=== PATIENT | male | born 1950 | race Caucasian/White ===

== ENCOUNTER 2019-08-07 03:18 | Emergency (ER) | payer MEDICARE, SELFPAY ==
[2019-08-07 03:24] VITALS: BP 120/85; PULSE 113; RESP 18; TEMP 37.1; O2SAT 99
--- NOTE | 2019-08-07 03:25 | ED.PSYCH ---
HPI - Psych General Chief Complaint: Psychiatric Symptoms <Sarbjit Cooper MD - Last Filed: 08/09/19 00:26> Stated Complaint: SI <Sarbjit Cooper MD - Last Filed: 08/09/19 00:26> Time Seen by Provider: 08/07/19 03:18 <Sarbjit Cooper MD - Last Filed: 08/09/19 00:26> History of Present Illness HPI Narrative: Sent from [facility] for alcohol intoxication and possible suicidal ideation. He reports that he has been drinking for the past 3 days straight and now he thinks that he is in withdrawal. Unsure when he had his last drink, but laess than 24 hours ago. He reportedly told someone that if he had the courage he would jump off of a bridge, but denies being suicidal at this time. <Sarbjit Cooper MD - Last Filed: 08/09/19 00:26> Related Data Home Medications: Home Medications Medication Instructions Recorded Confirmed fluoxetine 20 mg PO DAILY 06/13/19 06/13/19 furosemide 20 mg PO BID 06/13/19 06/13/19 gemfibrozil 600 mg PO DAILY 06/13/19 06/13/19 hydroxyzine HCl 25 mg PO Q4H PRN 06/13/19 06/13/19 sertraline 50 mg PO DAILY 06/13/19 06/13/19 verapamil 240 mg PO DAILY 06/13/19 06/13/19 <Sarbjit Cooper MD - Last Filed: 08/09/19 00:26> Allergies/Adverse Reactions: Allergies Allergy/AdvReac Type Severity Reaction Status Date / Time No Known Allergies Allergy Mild Verified 09/06/17 03:21 <Sarbjit Cooper MD - Last Filed: 08/09/19 00:26> Review of Systems Review of Systems: ROS unobtainable: other (limited due to intoxication and cooperation ) <Sarbjit Cooper MD - Last Filed: 08/09/19 00:26> Eyes: Eyes: Denies change in vision <Sarbjit Cooper MD - Last Filed: 08/09/19 00:26> Cardiovascular: Cardiovascular: Denies chest pain <Sarbjit Cooper MD - Last Filed: 08/09/19 00:26> Respiratory: Respiratory: Denies dyspnea <Sarbjit Cooper MD - Last Filed: 08/09/19 00:26> Psychiatric: Psychiatric: Reports anxiety, Reports depression and Reports suicidal ideation <Sarbjit Cooper MD - Last Filed: 08/09/19 00:26> [facility] Past Medical History Medical History: Medical History Alcoholism Anxiety Depression Deviated septum Esophageal varices GERD (gastroesophageal reflux disease) Hypercholesteremia Hypertension Nose fracture <Sarbjit Cooper MD - Last Filed: 08/09/19 00:26> Surgical History Surgical History: Surgical History H/O hernia repair x2 History of appendectomy <Sarbjit Cooper MD - Last Filed: 08/09/19 00:26> Family History Family History: Family History Father Alcoholism Mother Cancer <Sarbjit Cooper MD - Last Filed: 08/09/19 00:26> Social History Social History: Social History Social History: he has no children. He is disabled. He stated that he drinks a 5th of vodka a day and is a lifelong nonsmoker Smoking status: Never smoker Alcohol intake: current Substance use: former Substance use type: marijuana, heroin and other Other substance usage details: fifth vodka/day Gender identity (if verbalized by the patient): Male Spiritual care concerns: No Agree to blood products: Yes <Sarbjit Cooper MD - Last Filed: 08/09/19 00:26> Exam Const: General: no acute distress, alert and ill appearing chronically <Sarbjit Cooper MD - Last Filed: 08/09/19 00:26> Orientation/consciousness: patient oriented x3 <Sarbjit Cooper MD - Last Filed: 08/09/19 00:26> HENMT: Head: normal to inspection <Sarbjit Cooper MD - Last Filed: 08/09/19 00:26> Eyes: Pupils: Equal, round and reactive pupils present <Sarbjit Cooper MD - Last Filed: 08/09/19 00:26> Neck: Neck: normal visual inspection <Sarbjit Cooper MD - Last F
--- NOTE | 2019-08-07 03:30 | PC.NURSE ---
Sitter at bedside.
--- NOTE | 2019-08-07 03:32 | ECG_ITS ---
Measurements Intervals [place] Rate: 100 P: 38 [place]: 188 QRS: -41 QRSD: 78 T: 64 QT: 361 QTc: 468 Interpretive Statements SINUS TACHYCARDIA FREQUENT ATRIAL PREMATURE COMPLEXES LEFT AXIS DEVIATION ANTEROSEPTAL INFARCT, AGE INDETERMINATE BORDERLINE ST-T WAVE ABNORMALITY- LATERAL LEADS BASELINE ARTIFACT- I, II, AVR, V2-V3 ABNORMAL ECG Electronically Signed On 08-07-2019 8:02:49 CROSS TIE TRAM LOADER by Gumaro Glover D.O.
[2019-08-07 03:36] LABS: Basophils Percent Auto 0.5 % (0.2-1.2); Eosinophils Absolute Auto 0.1 K/mm3 (0-0.3); Eosinophils Percent Auto 0.9 % (0-4.4); Hematocrit 46.1 % (42.0-52.0); Hemoglobin 14.6 g/dL (14.0-18.0); Immature Granulocyte Absolute 0.03 K/mm3 (0.00-0.031); Immature Granulocyte Percent A 0.5 % (0-0.5); Lymphocytes Absolute Auto 1.45 K/mm3 (0.9-3.2); Lymphocytes Percent Auto 25.5 % (18.3-44.2); Mean Corpuscular HGB Conc 31.7 g/dl (32-36); Mean Corpuscular Hemoglobin 25.9 pg (26-34); Mean Corpuscular Volume 81.9 fl (80-100); Mean Platelet Volume 8.9 fl (7.4-10.4); Monocytes Absolute Auto 0.7 K/mm3 (0.1-0.6); Monocytes Percent Auto 11.6 % (2.6-8.5); Neutrophils Absolute Auto 3.5 K/mm3 (1.3-6.7); Platelet Count Result 281 k/mm3 (150-375); Red Blood Count 5.63 M/mm3 (4.6-6.20); Red Cell Distribution Width 17.3 % (11.5-14.5); White Blood Count 5.7 K/mm3 (4.5-10.0)
--- NOTE | 2019-08-07 03:40 | PC.NURSE ---
Patient banging head on wall, hitting torres with his fists. Dr Cooper aware.
[2019-08-07] MEDS: SODIUM CHLORIDE 0.9% IV 1,000 ML 999 ML IV CONT (03:45)
[2019-08-07] MEDS: HALOPERIDOL LACTATE 5 MG/ML VIAL IM (03:45)
[2019-08-07 04:00] LABS: Ethanol 206 mg/dL (<10)
--- NOTE | 2019-08-07 04:02 | PC.NURSE ---
New green top drawn and sent to lab after being unreceived. Patient advised again that we need urine, and he would be straight cathed if he cannot provide specimen.
--- NOTE | 2019-08-07 04:07 | PC.NURSE ---
Patient stating his medication is not working and ativan usually helps. EDP Kenneth aware.
[2019-08-07 04:11] VITALS: BP 138/81; PULSE 98; RESP 18; O2SAT 97
[2019-08-07 04:19] LABS: Alanine Aminotransferase 12 U/L (4-50); Albumin Level 3.5 g/dL (3.5-5.1); Alkaline Phosphatase 71 U/L (38-126); Aspartate Amino Transferase 36 U/L (17-59); Bilirubin,Total 0.3 mg/dL (0.2-1.3); Blood Urea Nitrogen 10 mg/dL (9-20); Calcium 8.2 mg/dL (8.4-10.2); Carbon Dioxide 20 mmol/L (22-30); Chloride 103 mmol/L (98-107); Estimated CRCL calculation 137 ml/min; Estimated Glomerular Filt Rate > 60; Glucose 92 mg/dL (75-110); Potassium 3.3 mmol/L (3.4-5.0); Sodium 138 mmol/L (137-145)
--- NOTE | 2019-08-07 04:30 | PC.NURSE ---
Sitter at bedside.
[2019-08-07] MEDS: LORAZEPAM INJ 2 MG/ML VIAL IV PUSH (04:33)
[2019-08-07 05:01] LABS: Add Urine Microscopic? YES; Appearance Urine Clear (Clear); Bacteria Urine Trace /hpf; Bilirubin Urine Negative (Negative); Blood Urine 1+ (Negative); Color Urine Straw (Yellow); Glucose Urine UA Negative (Negative); Ketones Urine Trace mg/dL (Negative); Leukocyte Esterase Ur Negative LEU/UL (Negative); Mucus Urine Rare /lpf; Nitrate Urine Negative (Negative); Protein Urine Negative (Negative); RBC Urine 0-2 /hpf (0-2); Specific Grav Ur 1.009 (1.001-1.035); Urobilinogen Urine Negative mg/dL (<2.0); WBC Urine 0-3 /hpf
[2019-08-07 05:14] LABS: Amphetamine Screen Urine Negative (Negative); Barbiturate Screen Urine Negative (Negative); Benzodiazepines Screen Urine Negative (Negative); Cannabinoid Screen Urine Negative (Negative); Cocaine Screen Urine Negative (Negative); Methadone Screen Urine Negative (Negative); Opiate Screen Urine Negative (Negative); Phencyclidine Screen Urine Negative (Negative)
--- NOTE | 2019-08-07 05:33 | PC.NURSE ---
Patient resting on stretcher, sitter at bedside.
--- NOTE | 2019-08-07 06:20 | PC.NURSE ---
Patient resting on stretcher, sitter at bedside.
[2019-08-07 07:19] VITALS: BP 112/74; PULSE 109; RESP 18; TEMP 36.4; O2SAT 97
--- NOTE | 2019-08-07 10:45 | PC.NURSE ---
Patient c/o being anxious, Dr. Ramsey notified and order received for IVP ativan.
[2019-08-07] MEDS: LORAZEPAM INJ 2 MG/ML VIAL 1 MG IV PUSH ×2 (11:00→15:20)
--- NOTE | 2019-08-07 12:10 | PC.NURSE ---
pt cooperative in room, resting. equal chest rise and fall noted
--- NOTE | 2019-08-07 12:40 | PC.NURSE ---
pt eating in room, no other needs at this time
[2019-08-07 13:07] LABS: Ethanol 12 mg/dL (<10)
[2019-08-07 14:23] VITALS: BP 122/84; PULSE 101; RESP 18; O2SAT 97
--- NOTE | 2019-08-07 14:28 | PC.NURSE ---
pt asking for med to help with anxiety awaiting order from pcp
[2019-08-07 15:11] VITALS: BP 131/70; PULSE 118; RESP 21; TEMP 36.8; O2SAT 95
--- NOTE | 2019-08-07 15:25 | PC.NURSE ---
pt received ativan 1 mg ivp pt comfortable in room eyes closed, equal chest rise and fall noted
--- NOTE | 2019-08-07 16:00 | PC.NURSE ---
pt said to be getting admitted to local hospital for eval and treatment info faxed to various facilities by crisis awaiting response
--- NOTE | 2019-08-07 17:57 | PC.NURSE ---
pt turned down for placement at [facility], stating that the pt does not meet criteria for involuntary placement. speaking to the pt, he does not want to be placed, completely denied any thoughts of SI, is aware of the statements that he made while under the ETOH, PT UNSURE OF WHAT PLAN HE HAS TO ARE FOR SELF AT THIS TIME STILL AWAITING WORD BACK FROM [facility] AND [facility] HAVE BOTH TURNED PT DOWN AT THIS TIME
--- NOTE | 2019-08-07 18:30 | PC.NURSE ---
pt in room eating dinner, pt cooperative, no other needs at this time
--- NOTE | 2019-08-07 19:30 | PC.NURSE ---
pt in room resting, no needs at this time. equal chest rise and fall sitter at door
--- NOTE | 2019-08-07 20:45 | PC.NURSE ---
pt in room resting, no needs equal chest rise and fall sitter at door
--- NOTE | 2019-08-07 21:55 | PC.NURSE ---
no needs at this time, still awaiting dispo no response from other facilities
[2019-08-08] MEDS: LORAZEPAM 1 MG TABLET 2 MG PO (03:40)
[2019-08-08 03:47] VITALS: BP 153/98; PULSE 80; RESP 20; O2SAT 96
--- NOTE | 2019-08-08 07:23 | PC.NURSE ---
Assumed care of pt, pt is resting w/ lights dimmed. Pt alert to verbal stimulation - discussed POC. Pt is calm and cooperative. Food tray ordered for pt. Sitter at bedside.
[2019-08-08 09:31] VITALS: BP 132/76; PULSE 79; RESP 14; O2SAT 97
--- NOTE | 2019-08-08 09:33 | PC.NURSE ---
Per Mariposa with Crisis, they are continuing to try to find placement for this patient. Requesting this RN fax records to [place] ([phone]), and to [facility] ([phone]).
--- NOTE | 2019-08-08 10:44 | PC.NURSE ---
PT REPORTS HE IS FEELING ANXIOUS AND REQUESTING MORE ATIVAN. EDP AWARE AND ORDER PLACED FOR MED. PT CALM AND COOPERATIVE, PT ON STRETCHER W/ LIGHTS DIMMED. SITTER REMAINS AT BEDTIME.
[2019-08-08] MEDS: LORAZEPAM 1 MG TABLET PO ×2 (10:50→14:53)
--- NOTE | 2019-08-08 10:50 | PC.NURSE ---
Mariposa from [facility] calling to request records be faxed to [facility].
--- NOTE | 2019-08-08 14:12 | PC.NURSE ---
CALLED DIETARY AND ORDERED LUNCH TRAY FOR PT, PT CALM AND RESTING ON STRETCHER - C/O ANXIOUS AND REQUESTING ATIVAN. EDP AWARE.
--- NOTE | 2019-08-08 14:56 | PC.NURSE ---
[facility] CALLED FOR PT INFORMATION, WILL POSSIBLY TAKE PT, GOING TO TALK W/ A DOC TO ACCEPT AND WILL CALL BACK IN APROX 20 MINS.
--- NOTE | 2019-08-08 15:33 | PC.NURSE ---
SERGEY FROM [facility] CALLING TO CONFIRM ACCEPTING PT. ACCEPTING DOCTOR DR BARBOSA. EDP AWARE. [phone]
--- NOTE | 2019-08-08 16:09 | PC.NURSE ---
Called [facility] to transport pt to a higher level of care. ETA [phone]. Trip# [id number]
[2019-08-08 16:44] VITALS: BP 127/72; PULSE 69; RESP 14; O2SAT 100
[2019-08-08 17:34] VITALS: BP 134/81; PULSE 87; RESP 14; O2SAT 98
== END 2019-08-08 17:37 ==
PROVIDERS: Emergency Medicine; Emergency Provider Emergency Medicine
DX: R45.851 Suicidal ideations (principal); F32.9 Major depressive disorder, single episode, unspecified; F10.129 Alcohol abuse with intoxication, unspecified; K21.9 Gastro-esophageal reflux disease without esophagitis; F41.9 Anxiety disorder, unspecified; E78.00 Pure hypercholesterolemia, unspecified; I10 Essential (primary) hypertension; Y90.7 Blood alcohol level of 200-239 mg/100 ml
CPT/HCPCS: 36415; 51701; 80053; 80307; 81001; 84443; 85025; 93005; 96361; 96372; 96374; 96376; 99285; A9270; J1630; J2060; J7030

== ENCOUNTER 2019-08-18 16:36 | Emergency (ER) | payer MEDICARE, SELFPAY ==
[2019-08-18] VITALS (8 sets, daily range): BP systolic 108–151; BP diastolic 64–98; PULSE 67–98; RESP 12–20; TEMP 34.1–36.8; O2SAT 93–99
--- NOTE | ~2019-08-18 | XR_ITS ---
EXAMINATION: XR chest 1V portable INDICATION: Transient alteration of awareness TECHNIQUE: Portable AP chest at 1741 hours COMPARISON: 05/09/2019 FINDINGS: The lungs are free of acute opacities. There is no pleural effusion or pneumothorax. The ca rdiomediastinal silhouette is normal. There is mild osteoarthritis of the shoulders. Partially imaged cervical fusion hardware is noted. There is mild rightward deviation of the trachea due to goiter. IMPRESSION: 1. No acute cardiopulmonary abnormality. Reviewed, dictated and finalized at location A. TESY BOOTH CASHIER
--- NOTE | ~2019-08-18 | CT_ITS ---
EXAMINATION: CT cervical spine wo con DATE: 08/18/2019 17:09 INDICATION: Neck injury. TECHNIQUE: Computed tomography (CT) of the cervical spine was performed without intravenous contrast. Automated exposure control and iterative reconstruction technique were employed. The dose-length pro duct was 453.54 mGy-cm. COMPARISON: CT cervical spine 06/09/2010 FINDINGS: There is a 6.8 cm nodule in left thyroid lobe, increased from 2.3 cm on 06/09/2010. There is rightward displacement of the trachea. There is 13 degrees levoscoliosis of cervical spine. There is 3 mm anterolisthesis of C4 on C5. There is kyphosis of cervical spine. There are changes of anterior fusion procedure at C4-C5 with healed interbody bone graft and anterior plate and screws. There is s everely decreased disc height at C3-C4 and C6-C7. There is severely decreased disc height at C5-C6 wi th interbody fusion. There is moderately decreased disc height at C7-T1. The following disc levels ar e specifically discussed: C2-C3: There is mild bilateral uncovertebral joint osteoarthritis. There is severe right and moderate left facet joint osteoarthritis. There is mild right neural foraminal stenosis. There is mild centra l canal stenosis. C3-C4: There is severe bilateral uncovertebral joint osteoarthritis. There is severe bilateral facet joint osteoarthritis. There is moderate bilateral neural foraminal stenosis. There is mild central ca nal stenosis. C4-C5: There is mild bilateral uncovertebral joint hypertrophy. There is ankylosis of the facet joint s with moderate right and mild left hypertrophy. There is mild right neural foraminal stenosis. There is mild central canal stenosis. C5-C6: There is mild bilateral uncovertebral joint hypertrophy. There is mild left facet joint osteoa rthritis. There is ankylosis of right facet joint with moderate hypertrophy. There is mild bilateral neural foraminal stenosis. There is mild central canal stenosis. C6-C7: There is severe bilateral uncovertebral joint osteoarthritis. There is mild bilateral facet arthur int osteoarthritis. There is mild bilateral neural foraminal stenosis. There is mild central canal st enosis. C7-T1: There is no uncovertebral joint osteoarthritis. There is severe bilateral facet joint osteoart hritis. There is mild bilateral neural foraminal stenosis. There is no central canal stenosis. IMPRESSION: 1. No fracture. 2. Severe cervical spondylosis. 3. Anterior and posterior fusion from C4 to C6. Reviewed, dictated and finalized at location A. N TUNER ELECTRONIC
--- NOTE | ~2019-08-18 | CT_ITS ---
EXAMINATION: CT brain wo con DATE: 08/18/2019 17:09 INDICATION: Head injury. TECHNIQUE: Computed tomography (CT) of the head was performed without intravenous contrast. The mA wa s adjusted according to patient size. Iterative reconstruction technique was employed. The dose-lengt h product was 681.00 mGy-cm. COMPARISON: Head CT 05/09/2019 FINDINGS: There is no intracranial hemorrhage, acute infarction, or abnormal intracranial mass lesion . The ventricles are normal in size. The orbits are normal. There is mild mucosal thickening in the p aranasal sinuses. The mastoid air cells are normal. There is left lateral scalp soft tissue swelling. IMPRESSION: 1. Normal brain. Reviewed, dictated and finalized at location A. OL CHILDCARE ATTENDANT IMPRESSION: 1. Normal brain.
--- NOTE | 2019-08-18 16:56 | ECG_ITS ---
Measurements Intervals [place] Rate: 93 P: 19 [place]: 196 QRS: -34 QRSD: 89 T: 23 QT: 385 QTc: 481 Interpretive Statements SINUS RHYTHM LEFT AXIS DEVIATION POOR R WAVE PROGRESSION, ANTERIOR LEADS CANNOT RULE OUT SEPTAL INFARCT, AGE INDETERMINATE BORDERLINE T WAVE ABNORMALITY- INFERIOR LEADS BASELINE ARTIFACT- I, III, AVL, V2 ABNORMAL ECG Electronically Signed On 08-18-2019 19:53:06 PARTS FABRICATOR by Gumaro Glover D.O.
--- NOTE | 2019-08-18 17:02 | ED.ALCOHOL ---
HPI - Alcohol General Chief Complaint: Alcohol <SABAS Hancock Last Filed: 08/18/19 23:04> Stated Complaint: fall, etoh <SABAS Hancock Last Filed: 08/18/19 23:04> Time Seen by Provider: 08/18/19 16:49 <SABAS Hancock Last Filed: 08/18/19 23:04> Source: patient and old records reviewed <SABAS Hancock Last Filed: 08/18/19 23:04> Mode of arrival: EMS <SABAS Hancock Last Filed: 08/18/19 23:04> Limitations: altered mental status <SABAS Hancock Last Filed: 08/18/19 23:04> History of Present Illness HPI narrative: Patient in the room from skilled nursing after having 2 falls with history of alcohol abuse with reported possibility of alcohol use today patient fell and struck his head at the skilled nursing and then again while with family patient on arrival per EMS is altered and alert and oriented to self. Patient is normally ANO x3 patient will follow basic commands but otherwise is limited in his ability to give an accurate history. Patient with hematoma to the left temporal region. <SABAS Hancock Last Filed: 08/18/19 23:04> Related Data Home Medications: Home Medications Medication Instructions Recorded Confirmed fluoxetine 20 mg PO DAILY 06/13/19 06/13/19 furosemide 20 mg PO BID 06/13/19 06/13/19 gemfibrozil 600 mg PO DAILY 06/13/19 06/13/19 hydroxyzine HCl 25 mg PO Q4H PRN 06/13/19 06/13/19 sertraline 50 mg PO DAILY 06/13/19 06/13/19 verapamil 240 mg PO DAILY 06/13/19 06/13/19 <SABAS Hancock Last Filed: 08/18/19 23:04> Allergies/Adverse Reactions: Allergies Allergy/AdvReac Type Severity Reaction Status Date / Time No Known Allergies Allergy Mild Verified 09/06/17 03:21 <SABAS Hancock Last Filed: 08/18/19 23:04> Review of Systems Review of Systems: ROS unobtainable: unobtainable due to mental status <Rico Oconnell PA-C - Last Filed: 08/18/19 23:04> [facility] Past Medical History Medical History: Medical History Alcoholism Anxiety Depression Deviated septum Esophageal varices GERD (gastroesophageal reflux disease) Hypercholesteremia Hypertension Nose fracture <Rico Oconnell PA-C - Last Filed: 08/18/19 23:04> Surgical History Surgical History: Surgical History H/O hernia repair x2 History of appendectomy <Rico Oconnell PA-C - Last Filed: 08/18/19 23:04> Social History Social History: Social History Social History: he has no children. He is disabled. He stated that he drinks a 5th of vodka a day and is a lifelong nonsmoker Smoking status: Never smoker Alcohol intake: current Substance use: former Substance use type: marijuana, heroin and other Other substance usage details: fifth vodka/day Gender identity (if verbalized by the patient): Male Spiritual care concerns: No Agree to blood products: Yes <Rico Oconnell PA-C - Last Filed: 08/18/19 23:04> Exam Narrative: Exam Narrative: GENERAL: Well-appearing, well-nourished, and in no acute distress. HEAD: Normocephalic, small hematoma to the left temporal region EYES: PERRLA and EOMI. ENT: Nares clear, no rhinorrhea or epistaxis. Mucous membranes moist. Oropharynx without tonsillar hypertrophy exudate or other lesions. NECK: Supple. No adenopathy or masses. CHEST: Clear to auscultation. No respiratory distress. No wheezes rales or rhonchi HEART: Regular rate and rhythm. No murmur heard. Normal peripheral pulses. ABDOMEN: Soft, nontender, nondistended EXTREMITIES: Normal range of motion. No edema. Cervical spine palpated nontender SKIN: Warm, dry, no rash. NEURO: Patient follows basic commands is alert and oriented to self PSYCH: Depressed mood with flat affect. <Rico Oconnell
[2019-08-18 17:53] LABS: Basophils Absolute Auto 0.1 K/mm3 (0.0-0.1); Basophils Percent Auto 0.9 % (0.2-1.2); Eosinophils Absolute Auto 0.2 K/mm3 (0-0.3); Eosinophils Percent Auto 2.2 % (0-4.4); Hemoglobin 13.7 g/dL (14.0-18.0); Immature Granulocyte Absolute 0.08 K/mm3 (0.00-0.031); Lymphocytes Absolute Auto 2.33 K/mm3 (0.9-3.2); Lymphocytes Percent Auto 30.6 % (18.3-44.2); Mean Corpuscular HGB Conc 31.1 g/dl (32-36); Mean Corpuscular Hemoglobin 26.2 pg (26-34); Mean Corpuscular Volume 84.1 fl (80-100); Mean Platelet Volume 8.4 fl (7.4-10.4); Monocytes Absolute Auto 0.9 K/mm3 (0.1-0.6); Monocytes Percent Auto 11.8 % (2.6-8.5); Neutrophils Absolute Auto 4.1 K/mm3 (1.3-6.7); Neutrophils Percent Auto 53.5 % (45.5-73.1); Platelet Count Result 323 k/mm3 (150-375); Red Blood Count 5.23 M/mm3 (4.6-6.20); Red Cell Distribution Width 17.6 % (11.5-14.5); White Blood Count 7.6 K/mm3 (4.5-10.0)
[2019-08-18] MEDS: LACTATED RINGERS 1,000 ML 999 ML IV CONT ×2 (18:05→21:37)
[2019-08-18 18:07] LABS: Alanine Aminotransferase 11 U/L (4-50); Albumin Level 3.9 g/dL (3.5-5.1); Alkaline Phosphatase 102 U/L (38-126); Aspartate Amino Transferase 26 U/L (17-59); Bilirubin,Total < 0.1 mg/dL (0.2-1.3); Blood Urea Nitrogen 6 mg/dL (9-20); Carbon Dioxide 23 mmol/L (22-30); Chloride 113 mmol/L (98-107); Estimated CRCL calculation 113 ml/min; Estimated Glomerular Filt Rate > 60; Glucose 103 mg/dL (75-110); Potassium 3.3 mmol/L (3.4-5.0); Sodium 149 mmol/L (137-145)
[2019-08-18 18:17] LABS: Troponin I < 0.012 ng/mL (0.000-0.034)
[2019-08-18 18:20] LABS: Ethanol 384 mg/dL (<10)
[2019-08-18 18:39] LABS: INR 0.9; Prothrombin Time 12.1 Seconds (11.1-14.7)
[2019-08-18 18:40] LABS: Partial Thromboplastin Time 24.9 SECONDS (22.3-36.8)
[2019-08-18 19:23] LABS: Add Urine Microscopic? YES; Appearance Urine Clear (Clear); Bilirubin Urine Negative (Negative); Blood Urine 1+ (Negative); Color Urine Straw (Yellow); Glucose Urine UA Negative (Negative); Ketones Urine Negative (Negative); Leukocyte Esterase Ur 2+ LEU/UL (Negative); Nitrate Urine Negative (Negative); Protein Urine Negative (Negative); RBC Urine 0-2 /hpf (0-2); Urobilinogen Urine Negative mg/dL (<2.0)
[2019-08-18 19:27] LABS: Specific Grav Ur 1.003 (1.001-1.035)
[2019-08-18 20:09] LABS: Amphetamine Screen Urine Negative (Negative); Barbiturate Screen Urine Negative (Negative); Benzodiazepines Screen Urine Positive (Negative); Cannabinoid Screen Urine Negative (Negative); Cocaine Screen Urine Negative (Negative); Methadone Screen Urine Negative (Negative); Opiate Screen Urine Negative (Negative); Phencyclidine Screen Urine Negative (Negative)
[2019-08-18] MEDS: LORAZEPAM INJ 2 MG/ML VIAL 0.5 MG IV PUSH (22:10)
== END 2019-08-18 23:40 ==
PROVIDERS: Emergency Medicine Emergency Medical Services; Emergency Provider Emergency Medicine
DX: F10.229 Alcohol dependence with intoxication, unspecified (principal); S00.83XA Contusion of other part of head, initial encounter; M47.812 Spondylosis without myelopathy or radiculopathy, cervical region; K21.9 Gastro-esophageal reflux disease without esophagitis; F41.9 Anxiety disorder, unspecified; F32.9 Major depressive disorder, single episode, unspecified; E78.00 Pure hypercholesterolemia, unspecified; I10 Essential (primary) hypertension; Y90.8 Blood alcohol level of 240 mg/100 ml or more; R94.31 Abnormal electrocardiogram [ECG] [EKG]; M43.22 Fusion of spine, cervical region; R82.998 Other abnormal findings in urine; W01.10XA Fall on same level from slipping, tripping and stumbling with subsequent striking against unspecified object, initial encounter
CPT/HCPCS: 36415; 51701; 70450; 71045; 72125; 80053; 80307; 81001; 84484; 85025; 85610; 85730; 87086; 93005; 96361; 96365; 96375; 99284; J2060; J3411; J3475; J7120

== ENCOUNTER 2019-08-20 16:23 | Inpatient (IN) | payer MEDICARE, SELFPAY ==
[2019-08-20] VITALS (8 sets, daily range): BP systolic 117–151; BP diastolic 63–95; PULSE 90–120; RESP 14–22; TEMP 36.4–36.7; O2SAT 93–100; BMI 31.8
--- NOTE | ~2019-08-20 | XR_ITS ---
EXAMINATION: XR chest 2V DATE: 08/20/2019 17:11 INDICATION: Midsternal chest pain TECHNIQUE: PA and lateral views of the chest are obtained. COMPARISON: 08/18/2019 FINDINGS: The lungs are free of acute opacities. There is no pleural effusion or pneumothorax. The ca rdiomediastinal silhouette is normal. There is moderate thoracic spondylosis. Anterior fusion hardwar e is noted in the lower cervical spine. Also seen is mild rightward deviation of the upper trachea du e to goiter. IMPRESSION: 1. No acute cardiopulmonary abnormality. Reviewed, dictated and finalized at location A. BULATORY TECHNOLOGIST
--- NOTE | ~2019-08-20 | CT_ITS ---
EXAMINATION: CT brain wo con DATE: 08/21/2019 00:50 INDICATION: Acute stroke TECHNIQUE: Computed tomography (CT) of the head was performed without intravenous contrast. Sagittal and coronal reconstructions were performed. The mA was adjusted according to patient size. Iterative reconstruction technique was employed. The dose-length product was 681.00 mGy-cm. COMPARISON: head CT dated 08/18/2019 FINDINGS: Mild motion artifact at the level of the middle cranial fossa and central portion of the posterior fo ssa. Residual small left frontoparietal scalp hematoma. No fracture. No acute intracranial hemorrhage , acute infarction or abnormal extra axial fluid collection. There is minimal scattered white matter hypoattenuation consistent with chronic small vessel ischemic disease. Symmetric prominence of the s ulci consistent with mild age-appropriate diffuse cerebral volume loss. Ventricles are normal and sym metric. No mass/mass effect. Old left nasal bone fracture deformity. Mild mucosal thickening in the b ilateral ethmoid and maxillary sinuses. The orbits and mastoid air cells are normal. IMPRESSION: 1. Normal aging brain with mild diffuse volume loss and minimal scattered white matter hypoattenuatio n consistent with chronic small vessel ischemic disease. No acute intracranial process. Reviewed, dictated and finalized at location A. Y ANALYST IMPRESSION: 1. Normal aging brain with mild diffuse volume loss and minimal scattered white matter hypoattenuation consistent with chronic small vessel ischemic disease. No acute intracranial process.
--- NOTE | ~2019-08-20 | CT_ITS ---
EXAMINATION: CTA chest PE protocol DATE: 08/20/2019 20:31 INDICATION: Shortness of breath TECHNIQUE: Computed tomography angiography (CTA) of the chest was performed with 100 mL Omnipaque-350 intravenous contrast timed to evaluate the pulmonary arteries. Coronal maximum intensity projection 3D-reconstructions were created by the technologist. The dose-length product (DLP) was 711.87 mGy-cm. Automated exposure control and iterative reconstruction technique were employed. COMPARISON: None. FINDINGS: The pulmonary arteries are well-opacified. There are acute emboli in subsegmental branches of the right lower lobe. There is a small right pleural effusion. There are small subpleural opacitie s in the right lower lobe. There is an apparent pleural-based calcification of the right lower lobe w hich could reflect prior asbestos exposure. Again noted is a 6.8 cm nodule of the left thyroid lobe w hich causes mild rightward displacement of the trachea. There is no pneumothorax. No pathologically e nlarged thoracic lymph nodes are identified. The heart size is normal. There is moderate thoracic spo ndylosis. IMPRESSION: 1. Acute pulmonary emboli of the right lower lobe. Subpleural opacities of the right lower lobe could reflect small areas of pulmonary infarction versus atelectasis. These findings were discussed with Ximena Gupta MD in the Emergency Department at 2 hours on 08/20/2019. Reviewed, dictated and finalized at location A. ECTOR BOOTH OPERATOR IMPRESSION: 1. Acute pulmonary emboli of the right lower lobe. Subpleural opacities of the right lower lobe could reflect small areas of pulmonary infarction versus atele ctasis. These findings were discussed with Dr. Maria Isabel Gupta MD in the [facility] Department at 2 hours on 08/20/2019.
--- NOTE | ~2019-08-20 | US_ITS ---
EXAMINATION: US venous doppler [facility] DATE: 08/21/2019 11:12 INDICATION: Pulmonary embolism TECHNIQUE: Grayscale ultrasound images without and with compression and Doppler ultrasound images of the bilateral lower extremity veins were obtained. COMPARISON: None. FINDINGS: The visualized portions of right common femoral vein, profunda (deep) femoral vein, femoral vein, pop liteal vein, posterior tibial veins, peroneal veins, gastrocnemius vein and greater saphenous vein ou tflow are patent. The visualized portions of left common femoral vein, profunda femoral vein, femoral vein, popliteal v ein, posterior tibial veins, peroneal veins, gastrocnemius vein and greater saphenous vein outflow ar e patent. IMPRESSION: 1. No deep venous thrombosis in either lower limb. Reviewed, dictated and finalized at location A. ER REPAIRER
--- NOTE | 2019-08-20 16:24 | ECG_ITS ---
Measurements Intervals [place] Rate: 118 P: 48 MS: 189 QRS: -51 QRSD: 80 T: 7 QT: 354 QTc: 498 Interpretive Statements SINUS TACHYCARDIA LEFT AXIS DEVIATION ANTEROSEPTAL INFARCT, AGE INDETERMINATE CONSIDER INFERIOR INFARCT, AGE INDETERMINATE BASELINE WANDER- I, II, III ABNORMAL ECG Electronically Signed On 08-20-2019 18:46:34 STAFF PSYCHIATRIST by Gumaro Glover D.O.
--- NOTE | 2019-08-20 16:27 | ED.CHESTPAIN ---
HPI - Chest Pain General Chief Complaint: Chest Pain Stated Complaint: chest pain Time Seen by Provider: 08/20/19 16:24 Source: patient Mode of arrival: EMS Limitations: no limitations History of Present Illness HPI narrative: The pt is a 69 y/o male who presents to the ED, via EMS, c/o midsternal CP onset few hours ago. The pt describes the pain as a pressure. Pt also notes that his heart has been racing, and he has felt shaky as well; he states his symptoms began after he stopped drinking today. Pt states that he drank approximately a 5th today, and notes that he has drank every day for the past week. The pt reports feet numbness, nausea, and diarrhea, but denies vomiting, SOB, cough, and SI. Pt notes that he is supposed to take HTN and HLD medications, but is not currently due to his divorce proceedings that began one week ago. Pt states that his PCP is Dr. Zev Shaw in [place], [place]. MD complaint: chest pain Onset (ago): hour(s) (a few) Pain location: other (Midsternal) Quality: other (Pressure) Context: other (Drinking every day this week) Associated symptoms: nausea and other (Heart is racing, diarrhea, feeling shaky, feet numbness) Related Data Home Medications Medication Instructions Recorded Confirmed fluoxetine 20 mg PO DAILY 06/13/19 06/13/19 gemfibrozil 600 mg PO DAILY 06/13/19 06/13/19 verapamil 240 mg PO DAILY 06/13/19 06/13/19 buspirone 7.5 mg PO BID 08/20/19 famotidine 20 mg PO BID 08/20/19 fenofibrate nanocrystallized 145 mg PO DAILY 08/20/19 folic acid 1 mg PO DAILY 08/20/19 metronidazole 500 mg PO Q8H 08/20/19 naltrexone 50 mg PO DAILY 08/20/19 Allergies Allergy/AdvReac Type Severity Reaction Status Date / Time No Known Allergies Allergy Mild Verified 09/06/17 03:21 Review of Systems Review of Systems: All systems reviewed & are unremarkable except as noted in HPI and below Constitutional: Constitutional: Reports other (Feeling shaky) Cardiovascular: Cardiovascular: Reports chest pain (Midsternal, pressure) and Reports palpitations ( Heart is racing ) Respiratory: Respiratory: Denies cough and Denies dyspnea Gastrointestinal: Gastrointestinal: Reports diarrhea, Reports nausea and Denies vomiting Neurologic: Reports numbness (Bilateral feet) Psychiatric: Psychiatric: Denies suicidal ideation PMFSH Past Medical History Medical History Alcoholism Anxiety Depression Deviated septum Esophageal varices GERD (gastroesophageal reflux disease) Hypercholesteremia Hypertension Nose fracture Surgical History Surgical History H/O hernia repair x2 History of appendectomy Family History Family History (Updated 08/20/19 @ 23:09 by Kimberly Key RN) Father Alcoholism Congestive heart failure Mother Cancer Grandparent Diabetes mellitus Social History Social History Social History: he has no children. He is disabled. He stated that he drinks a 5th of vodka a day and is a lifelong nonsmoker Smoking status: Never smoker Alcohol intake: current Substance use: former Substance use type: former substance user, marijuana, heroin and other Other substance usage details: drinks 1/5 vodka daily Gender identity (if verbalized by the patient): Male Spiritual care concerns: No Agree to blood products: Yes Comments PCP: Dr. Zev Shaw Exam Narrative: Exam Narrative: GENERAL: Well-appearing, well-nourished, and in no acute distress. HEAD: Normocephalic, atraumatic EYES: PERRLA and EOMI, conjunctiva clear without discharge EARS: TM's clear bilaterally without erythema or dullness NOSE: Nares clear, no rhinorrhea or epistaxis THROAT:Mucous membranes moist, Oropharynx normal without erythema, exudate, peritonsillar swelling or fluctuance NECK: Supple, without lymphadenopathy or mass
[2019-08-20 16:52] LABS: Basophils Percent Auto 0.3 % (0.2-1.2); Eosinophils Absolute Auto 0.1 K/mm3 (0-0.3); Eosinophils Percent Auto 0.7 % (0-4.4); Hematocrit 42.3 % (42.0-52.0); Hemoglobin 13.5 g/dL (14.0-18.0); Immature Granulocyte Absolute 0.02 K/mm3 (0.00-0.031); Immature Granulocyte Percent A 0.2 % (0-0.5); Lymphocytes Percent Auto 19.5 % (18.3-44.2); Mean Corpuscular HGB Conc 31.9 g/dl (32-36); Mean Corpuscular Hemoglobin 26.3 pg (26-34); Mean Corpuscular Volume 82.5 fl (80-100); Mean Platelet Volume 8.8 fl (7.4-10.4); Monocytes Absolute Auto 0.9 K/mm3 (0.1-0.6); Monocytes Percent Auto 9.3 % (2.6-8.5); Neutrophils Absolute Auto 6.4 K/mm3 (1.3-6.7); Platelet Count Result 304 k/mm3 (150-375); Red Blood Count 5.13 M/mm3 (4.6-6.20); Red Cell Distribution Width 17.3 % (11.5-14.5); White Blood Count 9.2 K/mm3 (4.5-10.0)
[2019-08-20 17:01] LABS: INR 0.9; Prothrombin Time 12.3 Seconds (11.1-14.7)
[2019-08-20 17:02] LABS: Partial Thromboplastin Time 25.6 SECONDS (22.3-36.8)
[2019-08-20 17:03] LABS: Blood Urea Nitrogen 8 mg/dL (9-20); Calcium 8.4 mg/dL (8.4-10.2); Carbon Dioxide 24 mmol/L (22-30); Chloride 103 mmol/L (98-107); Estimated CRCL calculation 131 ml/min; Estimated Glomerular Filt Rate > 60; Glucose 117 mg/dL (75-110); Sodium 141 mmol/L (137-145)
[2019-08-20 17:04] LABS: Alanine Aminotransferase 11 U/L (4-50); Albumin Level 3.4 g/dL (3.5-5.1); Alkaline Phosphatase 96 U/L (38-126); Aspartate Amino Transferase 28 U/L (17-59); Bilirubin,Total 0.2 mg/dL (0.2-1.3); Lipase 100 U/L (23-300); Magnesium 1.8 mg/dL (1.6-2.3)
[2019-08-20 17:05] LABS: Ethanol 189 mg/dL (<10)
[2019-08-20 17:13] LABS: Add Urine Microscopic? YES; Appearance Urine Cloudy (Clear); Bacteria Urine Trace /hpf; Bilirubin Urine Negative (Negative); Blood Urine 3+ (Negative); Color Urine Yellow (Yellow); Glucose Urine UA Negative (Negative); Ketones Urine Negative (Negative); Leukocyte Esterase Ur 3+ LEU/UL (Negative); Nitrate Urine Negative (Negative); Protein Urine 1+ mg/dL (Negative); Specific Grav Ur 1.009 (1.001-1.035); Urobilinogen Urine Negative mg/dL (<2.0); WBC Urine 31-50 /hpf
[2019-08-20 17:15] LABS: Troponin I < 0.012 ng/mL (0.000-0.034)
[2019-08-20 17:22] LABS: Amphetamine Screen Urine Negative (Negative); Barbiturate Screen Urine Negative (Negative); Benzodiazepines Screen Urine Positive (Negative); Cannabinoid Screen Urine Negative (Negative); Cocaine Screen Urine Negative (Negative); Methadone Screen Urine Negative (Negative); Opiate Screen Urine Negative (Negative); Phencyclidine Screen Urine Negative (Negative)
[2019-08-20] MEDS: ASPIRIN 81 MG CHEWABLE TABLET 324 MG PO (17:54)
[2019-08-20] MEDS: MORPHINE SULFATE 4 MG/ML INJ IV PUSH (17:54)
[2019-08-20] MEDS: LACTATED RINGERS 1,000 ML 999 ML IV CONT ×2 (17:54→18:50)
[2019-08-20] MEDS: PANTOPRAZOLE SODIUM IV 40 MG VIAL IV PUSH (17:54)
[2019-08-20] MEDS: POTASSIUM CHLORIDE 20 MEQ TABLET 40 MEQ PO (17:54)
[2019-08-20] MEDS: LORAZEPAM INJ 2 MG/ML VIAL 1 MG IV PUSH (18:01)
[2019-08-20 19:11] LABS: INR 0.9; Prothrombin Time 12.2 Seconds (11.1-14.7)
[2019-08-20 19:17] LABS: Partial Thromboplastin Time 24.6 SECONDS (22.3-36.8)
[2019-08-20 19:21] LABS: Troponin I 0.013 ng/mL (0.000-0.034)
[2019-08-20 19:59] LABS: D Dimer 1.89 ug/mL (<0.48)
[2019-08-20] MEDS: CHLORDIAZEPOXIDE 25 MG CAPSULE 50 MG PO (20:36)
[2019-08-20] MEDS: ENOXAPARIN 100 MG/ML SYRINGE SUB-Q (21:14)
--- NOTE | 2019-08-20 22:23 | PM.IMHP ---
H&P: HPI History of Present Illness Chief complaint: chest pain and anxiety++ Narrative: This is a 69 year old Alcoholic male with known history of esophageal varices who presented to the hospital with a complaint of midsternal chest pain tonight. The patient is known to drink a half of a fifth of Vodka daily but has increased this to a full 1/5 of Vodka daily for the past few days as he has been going through a stressful divorce. Today he was laying around watching television when he suddenly started to experience midsternal chest pain. He described his chest pain as heaviness+ The patient complains of feeling very shaky, anxious, and nauseated. His chest pain does not radiate anywhere. Associated symptoms include shortness of breath. He denies any hallucinations, vomiting, or rectal bleeding. He also reports that he passed out yesterday while in the lobby and did hit the left side of his head on the ground. He would like to quit drinking alcohol. He also reports that he had blood in his urine 1 week ago and continues to have burning urination. The patient was evaluated in the ER and treated with Ativan IV for his acute withdrawal symptoms. CTA chest was performed and did demonstrate acute pulmonary embolism. Review of Systems Review of Systems: All systems reviewed & are unremarkable except as noted in HPI and below PMFSH Past Medical History Medical History Alcoholism Anxiety Depression Deviated septum Esophageal varices GERD (gastroesophageal reflux disease) Hypercholesteremia Hypertension Nose fracture Surgical History Surgical History H/O hernia repair x2 History of appendectomy Family History Family History Father Alcoholism Congestive heart failure Mother Cancer Grandparent Diabetes mellitus Social History Social History Social History: he has no children. He is disabled. He stated that he drinks a 5th of vodka a day and is a lifelong nonsmoker Smoking status: Never smoker Alcohol intake: current Substance use: former Substance use type: former substance user, marijuana, heroin and other Other substance usage details: drinks 1/5 vodka daily Gender identity (if verbalized by the patient): Male Spiritual care concerns: No Agree to blood products: Yes Meds Home Medications and Allergies Home Medications Medication Instructions Recorded Confirmed Type fluoxetine 20 mg PO DAILY 06/13/19 08/21/19 History gemfibrozil 600 mg PO DAILY 06/13/19 08/21/19 History verapamil 240 mg PO DAILY 06/13/19 08/21/19 History buspirone 7.5 mg PO BID 08/20/19 08/21/19 History famotidine 20 mg PO BID 08/20/19 08/21/19 History fenofibrate nanocrystallized 145 mg PO DAILY 08/20/19 08/21/19 History folic acid 1 mg PO DAILY 08/20/19 08/21/19 History metronidazole 500 mg PO Q8H 08/20/19 08/21/19 History naltrexone 100 mg PO DAILY 08/20/19 08/21/19 History Allergies Allergy/AdvReac Type Severity Reaction Status Date / Time No Known Allergies Allergy Mild Verified 09/06/17 03:21 Vital Signs Vital Signs - 24 hr 08/20/19 16:40 08/20/19 18:03 08/20/19 18:40 Temperature 36.4 C Pulse Rate 120 H 115 H 102 H Respiratory Rate 22 H 14 20 Blood Pressure 117/63 134/68 151/95 H Pulse Oximetry 95 96 93 08/20/19 18:56 08/20/19 20:00 08/20/19 21:46 Temperature Pulse Rate 112 H 106 H 100 Respiratory Rate 19 18 18 Blood Pressure 151/95 H 126/77 148/84 H Pulse Oximetry 94 96 100 Exam Const: General: cooperative, alert, awake, acute distress moderate and ill appearing Nutritional Appearance: obese Orientation/consciousness: oriented to person and oriented to place HENMT: Head: scalp tenderness (left parietal lobe, edema++ ) General nose exam: Normal external nose present Face an
[2019-08-20 23:26] LABS: Troponin I 0.013 ng/mL (0.000-0.034)
[2019-08-21] VITALS (9 sets, daily range): BP systolic 113–146; BP diastolic 64–94; PULSE 77–96; RESP 18–20; TEMP 35.8–36.6; O2SAT 94–97
--- NOTE | 2019-08-21 | ADMIMU ---
This patient, Toro Zeng, was admitted to IMU status, and placed in IMU Room 206-02 on 08/20/19 at 2230. Patient/family oriented to hospital policies and general routines including ID bracelet, bed and alarms, visiting hours, pain management, procedures, bathroom and other care routines, personal items, smoking policy, room service/diet, and visiting hours. Valuables list has been completed. Information on how to activate the Rapid Response Team has been discussed. Patient/Family are encouraged to report perceived risks to care and to ask questions if they do not understand what they are told or what they should do.
[2019-08-21 01:04] LABS: Glucose Point of Care 79 (65-105)
[2019-08-21] MEDS: CHLORDIAZEPOXIDE 25 MG CAPSULE PO ×4 (01:07→20:36)
[2019-08-21 05:39] LABS: Basophils Percent Auto 0.8 % (0.2-1.2); Eosinophils Absolute Auto 0.2 K/mm3 (0-0.3); Hematocrit 36.7 % (42.0-52.0); Hemoglobin 11.6 g/dL (14.0-18.0); Immature Granulocyte Absolute 0.01 K/mm3 (0.00-0.031); Immature Granulocyte Percent A 0.2 % (0-0.5); Lymphocytes Absolute Auto 1.47 K/mm3 (0.9-3.2); Lymphocytes Percent Auto 28.9 % (18.3-44.2); Mean Corpuscular HGB Conc 31.6 g/dl (32-36); Mean Corpuscular Volume 82.1 fl (80-100); Mean Platelet Volume 9.5 fl (7.4-10.4); Monocytes Absolute Auto 0.8 K/mm3 (0.1-0.6); Monocytes Percent Auto 14.8 % (2.6-8.5); Neutrophils Absolute Auto 2.7 K/mm3 (1.3-6.7); Neutrophils Percent Auto 52.3 % (45.5-73.1); Platelet Count Result 265 k/mm3 (150-375); Red Blood Count 4.47 M/mm3 (4.6-6.20); Red Cell Distribution Width 17.4 % (11.5-14.5); White Blood Count 5.1 K/mm3 (4.5-10.0)
[2019-08-21 06:24] LABS: Blood Urea Nitrogen 5 mg/dL (9-20); Calcium 8.2 mg/dL (8.4-10.2); Carbon Dioxide 27 mmol/L (22-30); Chloride 99 mmol/L (98-107); Estimated CRCL calculation 134 ml/min; Estimated Glomerular Filt Rate > 60; Glucose 81 mg/dL (75-110); Potassium 3.3 mmol/L (3.4-5.0); Sodium 137 mmol/L (137-145)
[2019-08-21 08:16] LABS: Glucose Point of Care 79 (65-105)
[2019-08-21] MEDS: gemfibroziL 600 MG TABLET PO (11:06)
[2019-08-21] MEDS: busPIRone HCL 2.5 MG TABLET PO ×2 (11:09→20:36)
[2019-08-21] MEDS: VERAPAMIL HCL ER 240 MG TABLET.ER PO (11:10)
[2019-08-21] MEDS: busPIRone HCL 5 MG TABLET PO ×2 (11:11→20:36)
[2019-08-21] MEDS: ENOXAPARIN 100 MG/ML SYRINGE SUB-Q ×2 (11:11→20:36)
[2019-08-21] MEDS: FLUOXETINE HCL 20 MG CAP PO (11:12)
[2019-08-21] MEDS: FOLIC ACID 1 MG TABLET PO (11:12)
[2019-08-21] MEDS: FENOFIBRATE NANOCRYSTALLIZED 145 MG TABLET PO (11:12)
[2019-08-21 13:07] LABS: Glucose Point of Care 85 (65-105)
--- NOTE | 2019-08-21 13:40 | PC.NURSE ---
This patient, Toro Zneg, was received from IMU on 08/21/19 at 1340. Personal belongings list checked and signed. Patient/family oriented to unit policies and routines
[2019-08-21] MEDS: LORAZEPAM INJ 2 MG/ML VIAL 1 MG IV PUSH ×3 (14:20→22:55)
--- NOTE | 2019-08-21 16:54 | PM.IMPN ---
Progress Note: A&P Assessment and Plan (1) Acute pulmonary embolism: Qualifiers: Pulmonary embolism type: unspecified Acute cor pulmonale presence: without acute cor pulmonale Qualified Code(s): I26.99 - Other pulmonary embolism without acute cor pulmonale Code(s): I26.99 - Other pulmonary embolism without acute cor pulmonale Status: Acute Assessment and Plan: The patient has been anticoagulated with therapeutic Lovenox . Venous Dopplers were negative today also. Will attempt to transition to Xa inhibitor 1-2 days. (2) Alcohol withdrawal: Qualifiers: Complication of substance-induced condition: with unspecified complication Qualified Code(s): F10.239 - Alcohol dependence with withdrawal, unspecified Code(s): F10.239 - Alcohol dependence with withdrawal, unspecified Status: Acute Assessment and Plan: w/ confusion, tremors, anxiety, nausea, diaphoresis. CIWA-AR protocol. Librium PO scheduled. Ativan IV withdrawal prohylaxis. Thaimine IV daily. The patient has verbalized his desire to quit drinking alcohol. He has been through rehab in the past and always relapsed. States he can remember last program (3) UTI (urinary tract infection): Qualifiers: Urinary tract infection type: site unspecified Hematuria presence: with hematuria Qualified Code(s): N39.0 - Urinary tract infection, site not specified; R31.9 - Hematuria, unspecified Code(s): N39.0 - Urinary tract infection, site not specified Status: Acute Assessment and Plan: w/ abnormal urinalysis and dysuria. The patient started on IV ceftriaxone. Urine culture pending. (4) Depression: Qualifiers: Depression Type: major depressive disorder Major depression recurrence: recurrent Active/Remission status: currently active Major depression episode severity: severe Psychotic features: without psychotic features Qualified Code(s): F33.2 - Major depressive disorder, recurrent severe without psychotic features Code(s): F32.9 - Major depressive disorder, single episode, unspecified Status: Chronic Assessment and Plan: Resume buspar. And p.r.n. lorazepam for anxiety (5) Hypercholesteremia: Code(s): E78.00 - Pure hypercholesterolemia, unspecified Status: Chronic Assessment and Plan: Continue fenofibrate but hold gemfibrozil all since both are fibrates (6) Hypertension: Qualifiers: Hypertension type: essential hypertension Qualified Code(s): I10 - Essential (primary) hypertension Code(s): I10 - Essential (primary) hypertension Status: Chronic Assessment and Plan: stable. monitor blood pressure. Continue verapamil. (7) GERD (gastroesophageal reflux disease): Qualifiers: Esophagitis presence: esophagitis presence not specified Qualified Code(s): K21.9 - Gastro-esophageal reflux disease without esophagitis Code(s): K21.9 - Gastro-esophageal reflux disease without esophagitis Status: Acute Assessment and Plan: PPI daily. Patient gives a history in the distant past of varices which he said were discovered on EGD at [facility] several years ago No history of GI bleeding. INR and LFTs are normal so no suggestion of cirrhosis (8) Hypokalemia: Code(s): E87.6 - Hypokalemia Status: Chronic Assessment and Plan: Replace and resolved Subjective Date/time seen: 08/21/19 16:54 Interval history: Date of visit 09/18. 69-year-old hypertensive white male alcoholic presented to the emergency room with chief complaint sharp right-sided substernal chest discomfort worsened with deep inspiration. D-dimer was elevated and CTA revealed right-sided emboli. Patient was admitted for evaluation treatment of the same. Admits to drinking about a 5th of liquor a day and wanting to quit but has been through we rehab several times as well withdrawal. Exam Narrative
[2019-08-21] MEDS: ONDANSETRON INJ 4 MG/2 ML VIAL IV PUSH ×2 (17:24→22:56)
[2019-08-21 17:57] LABS: Glucose Point of Care 109 (65-105)
[2019-08-21 22:22] LABS: Glucose Point of Care 130 (65-105)
[2019-08-22] VITALS: BP 113/64
[2019-08-22] MEDS: CHLORDIAZEPOXIDE 25 MG CAPSULE PO ×2 (02:07→08:35)
[2019-08-22] MEDS: LORAZEPAM INJ 2 MG/ML VIAL 1 MG IV PUSH ×3 (04:49→20:21)
[2019-08-22 05:52] VITALS: BP 125/68; PULSE 73; RESP 20; TEMP 36.5; O2SAT 94
[2019-08-22 06:21] LABS: Basophils Percent Auto 0.7 % (0.2-1.2); Eosinophils Absolute Auto 0.2 K/mm3 (0-0.3); Hematocrit 36.3 % (42.0-52.0); Hemoglobin 11.6 g/dL (14.0-18.0); Immature Granulocyte Absolute 0.01 K/mm3 (0.00-0.031); Immature Granulocyte Percent A 0.2 % (0-0.5); Lymphocytes Absolute Auto 1.14 K/mm3 (0.9-3.2); Lymphocytes Percent Auto 26.6 % (18.3-44.2); Mean Corpuscular Hemoglobin 26.5 pg (26-34); Mean Corpuscular Volume 83.1 fl (80-100); Mean Platelet Volume 10.2 fl (7.4-10.4); Monocytes Absolute Auto 0.6 K/mm3 (0.1-0.6); Neutrophils Absolute Auto 2.3 K/mm3 (1.3-6.7); Neutrophils Percent Auto 53.5 % (45.5-73.1); Platelet Count Result 250 k/mm3 (150-375); Red Blood Count 4.37 M/mm3 (4.6-6.20); Red Cell Distribution Width 17.6 % (11.5-14.5); White Blood Count 4.3 K/mm3 (4.5-10.0)
[2019-08-22 06:38] LABS: Estimated CRCL calculation 133 ml/min; Estimated Glomerular Filt Rate > 60
[2019-08-22 08:02] LABS: Albumin Level 3.2 g/dL (3.5-5.1); Blood Urea Nitrogen 4 mg/dL (9-20); Calcium 8.6 mg/dL (8.4-10.2); Carbon Dioxide 28 mmol/L (22-30); Chloride 103 mmol/L (98-107); Estimated CRCL calculation 133 ml/min; Estimated Glomerular Filt Rate > 60; Glucose 92 mg/dL (75-110); Phosphorus 4.1 mg/dL (2.5-4.5); Potassium 3.7 mmol/L (3.4-5.0); Sodium 140 mmol/L (137-145)
[2019-08-22] MEDS: PANTOPRAZOLE 40 MG TABLET PO (08:35)
[2019-08-22] MEDS: busPIRone HCL 2.5 MG TABLET PO ×2 (08:35→22:01)
[2019-08-22] MEDS: THIAMINE HCL 100 MG TABLET PO (08:35)
[2019-08-22] MEDS: VERAPAMIL HCL ER 240 MG TABLET.ER PO (08:36)
[2019-08-22] MEDS: ENOXAPARIN 100 MG/ML SYRINGE SUB-Q ×2 (08:36→22:01)
[2019-08-22] MEDS: busPIRone HCL 5 MG TABLET PO ×2 (08:36→22:01)
[2019-08-22] MEDS: FLUOXETINE HCL 20 MG CAP PO (08:36)
[2019-08-22] MEDS: FOLIC ACID 1 MG TABLET PO (08:36)
[2019-08-22] MEDS: FENOFIBRATE NANOCRYSTALLIZED 145 MG TABLET PO (08:36)
[2019-08-22] MEDS: ONDANSETRON INJ 4 MG/2 ML VIAL IV PUSH (12:45)
--- NOTE | 2019-08-22 12:59 | PM.IMPN ---
Progress Note: A&P Assessment and Plan (1) Acute pulmonary embolism: Qualifiers: Pulmonary embolism type: unspecified Acute cor pulmonale presence: without acute cor pulmonale Qualified Code(s): I26.99 - Other pulmonary embolism without acute cor pulmonale Code(s): I26.99 - Other pulmonary embolism without acute cor pulmonale Status: Acute Assessment and Plan: The patient has been anticoagulated with therapeutic Lovenox . Venous Dopplers were negative also. Will attempt to transition to Xa inhibitor 1-2 days. Have care coordination check on availability with his insurance (2) Alcohol withdrawal: Qualifiers: Complication of substance-induced condition: with unspecified complication Qualified Code(s): F10.239 - Alcohol dependence with withdrawal, unspecified Code(s): F10.239 - Alcohol dependence with withdrawal, unspecified Status: Acute Assessment and Plan: w/ confusion, tremors, anxiety, nausea, diaphoresis. CIWA-AR protocol. Librium PO scheduled and increased to 50 Q 6 today. Ativan IV withdrawal prohylaxis. Thaimine daily. The patient has verbalized his desire to quit drinking alcohol. He has been through rehab in the past and always relapsed. States he can not remember last program (3) UTI (urinary tract infection): Qualifiers: Urinary tract infection type: site unspecified Hematuria presence: with hematuria Qualified Code(s): N39.0 - Urinary tract infection, site not specified; R31.9 - Hematuria, unspecified Code(s): N39.0 - Urinary tract infection, site not specified Status: Acute Assessment and Plan: Culture growing Enterococcus sensitive to ampicillin so will discontinue ceftriaxone and start ampicillin, 1 gm q6 (4) Depression: Qualifiers: Depression Type: major depressive disorder Major depression recurrence: recurrent Active/Remission status: currently active Major depression episode severity: severe Psychotic features: without psychotic features Qualified Code(s): F33.2 - Major depressive disorder, recurrent severe without psychotic features Code(s): F32.9 - Major depressive disorder, single episode, unspecified Status: Chronic Assessment and Plan: Resume buspar. And p.r.n. lorazepam for anxiety (5) Hypercholesteremia: Code(s): E78.00 - Pure hypercholesterolemia, unspecified Status: Chronic Assessment and Plan: Continue fenofibrate but hold gemfibrozil since both are fibrates (6) Hypertension: Qualifiers: Hypertension type: essential hypertension Qualified Code(s): I10 - Essential (primary) hypertension Code(s): I10 - Essential (primary) hypertension Status: Chronic Assessment and Plan: stable. monitor blood pressure. Continue verapamil. (7) GERD (gastroesophageal reflux disease): Qualifiers: Esophagitis presence: esophagitis presence not specified Qualified Code(s): K21.9 - Gastro-esophageal reflux disease without esophagitis Code(s): K21.9 - Gastro-esophageal reflux disease without esophagitis Status: Acute Assessment and Plan: PPI daily. Patient gives a history in the distant past of varices which he said were discovered on EGD at [facility] several years ago No history of GI bleeding. INR and LFTs are normal so no suggestion of cirrhosis (8) Hypokalemia: Code(s): E87.6 - Hypokalemia Status: Chronic Assessment and Plan: Replaced and resolved Subjective Date/time seen: 08/22/19 12:59 Interval history: Date of visit 08/22. 69-year-old hypertensive white male alcoholic presented to the emergency room with chief complaint sharp right-sided substernal chest discomfort worsened with deep inspiration. D-dimer was elevated and CTA revealed right-sided emboli. Patient was admitted for evaluation treatment of the same. Admits to drinking about a 5th of liquor a
[2019-08-22] MEDS: CHLORDIAZEPOXIDE 25 MG CAPSULE 50 MG PO ×2 (13:12→17:35)
[2019-08-22 14:00] VITALS: BP 111/67; PULSE 82; RESP 20; TEMP 36.6; O2SAT 93
[2019-08-22] MEDS: AMPICILLIN 1 GM/NS 50 ML 1 GM/50 ML BAG IVPB ×2 (16:03→20:20)
[2019-08-22] MEDS: ACETAMINOPHEN 325 MG TABLET 650 MG PO (16:20)
[2019-08-22 22:00] VITALS: BP 117/62; PULSE 78; RESP 20; TEMP 36.8; O2SAT 97
[2019-08-23] MEDS: AMPICILLIN 1 GM/NS 50 ML 1 GM/50 ML BAG IVPB ×4 (00:08→18:10)
[2019-08-23] MEDS: CHLORDIAZEPOXIDE 25 MG CAPSULE 50 MG PO ×4 (00:08→18:12)
[2019-08-23] MEDS: LORAZEPAM INJ 2 MG/ML VIAL 1 MG IV PUSH ×4 (02:41→20:48)
[2019-08-23 06:00] VITALS: BP 111/62; PULSE 71; RESP 16; TEMP 36.6; O2SAT 96
[2019-08-23 06:26] LABS: Basophils Percent Auto 0.5 % (0.2-1.2); Eosinophils Absolute Auto 0.3 K/mm3 (0-0.3); Eosinophils Percent Auto 6.7 % (0-4.4); Hematocrit 38.4 % (42.0-52.0); Hemoglobin 11.9 g/dL (14.0-18.0); Immature Granulocyte Absolute 0.02 K/mm3 (0.00-0.031); Immature Granulocyte Percent A 0.5 % (0-0.5); Mean Corpuscular Hemoglobin 26.1 pg (26-34); Mean Corpuscular Volume 84.2 fl (80-100); Mean Platelet Volume 9.6 fl (7.4-10.4); Monocytes Absolute Auto 0.5 K/mm3 (0.1-0.6); Monocytes Percent Auto 11.1 % (2.6-8.5); Neutrophils Percent Auto 49.2 % (45.5-73.1); Platelet Count Result 211 k/mm3 (150-375); Red Blood Count 4.56 M/mm3 (4.6-6.20); Red Cell Distribution Width 17.6 % (11.5-14.5); White Blood Count 4.1 K/mm3 (4.5-10.0)
[2019-08-23 06:52] LABS: Albumin Level 3.2 g/dL (3.5-5.1); Blood Urea Nitrogen 4 mg/dL (9-20); Calcium 8.5 mg/dL (8.4-10.2); Carbon Dioxide 26 mmol/L (22-30); Chloride 103 mmol/L (98-107); Estimated CRCL calculation 132 ml/min; Estimated Glomerular Filt Rate > 60; Glucose 106 mg/dL (75-110); Phosphorus 2.9 mg/dL (2.5-4.5); Potassium 3.5 mmol/L (3.4-5.0); Sodium 141 mmol/L (137-145)
[2019-08-23] MEDS: FENOFIBRATE NANOCRYSTALLIZED 145 MG TABLET PO (08:26)
[2019-08-23] MEDS: THIAMINE HCL 100 MG TABLET PO (08:26)
[2019-08-23] MEDS: ENOXAPARIN 100 MG/ML SYRINGE SUB-Q (08:26)
[2019-08-23] MEDS: FOLIC ACID 1 MG TABLET PO (08:26)
[2019-08-23] MEDS: busPIRone HCL 5 MG TABLET PO ×2 (08:26→20:28)
[2019-08-23] MEDS: FLUOXETINE HCL 20 MG CAP PO (08:26)
[2019-08-23] MEDS: busPIRone HCL 2.5 MG TABLET PO ×2 (08:26→20:28)
[2019-08-23] MEDS: PANTOPRAZOLE 40 MG TABLET PO (08:26)
[2019-08-23] MEDS: VERAPAMIL HCL ER 240 MG TABLET.ER PO (08:27)
[2019-08-23 14:00] VITALS: BP 110/68; PULSE 82; RESP 20; TEMP 36.3; O2SAT 97
--- NOTE | 2019-08-23 16:17 | PM.IMPN ---
Progress Note: A&P Assessment and Plan (1) Acute pulmonary embolism: Qualifiers: Pulmonary embolism type: unspecified Acute cor pulmonale presence: without acute cor pulmonale Qualified Code(s): I26.99 - Other pulmonary embolism without acute cor pulmonale Code(s): I26.99 - Other pulmonary embolism without acute cor pulmonale Status: Acute Assessment and Plan: No record of EGD or other evaluation in the [facility] system Hold Lovenox tonight Discussed with Dr. gaston and will get EGD in the morning to evaluate for at risk of varices before initiating long-term anticoagulation with oral agent (2) Alcohol withdrawal: Qualifiers: Complication of substance-induced condition: with unspecified complication Qualified Code(s): F10.239 - Alcohol dependence with withdrawal, unspecified Code(s): F10.239 - Alcohol dependence with withdrawal, unspecified Status: Acute Assessment and Plan: Presented w/ confusion, tremors, anxiety, nausea, diaphoresis. CIWA-AR protocol. Librium PO scheduled. Ativan IV withdrawal prohylaxis. Thaimine IV daily. The patient has verbalized his desire to quit drinking alcohol. He has been through rehab in the past and always relapsed. (3) UTI (urinary tract infection): Qualifiers: Urinary tract infection type: site unspecified Hematuria presence: with hematuria Qualified Code(s): N39.0 - Urinary tract infection, site not specified; R31.9 - Hematuria, unspecified Code(s): N39.0 - Urinary tract infection, site not specified Status: Acute Assessment and Plan: w/ abnormal urinalysis and dysuria. Ampicillin for enteroccus (4) Depression: Qualifiers: Depression Type: major depressive disorder Major depression recurrence: recurrent Active/Remission status: currently active Major depression episode severity: severe Psychotic features: without psychotic features Qualified Code(s): F33.2 - Major depressive disorder, recurrent severe without psychotic features Code(s): F32.9 - Major depressive disorder, single episode, unspecified Status: Chronic Assessment and Plan: Continue buspar. And p.r.n. lorazepam for anxiety (5) Hypercholesteremia: Code(s): E78.00 - Pure hypercholesterolemia, unspecified Status: Chronic Assessment and Plan: Continue fenofibrate but hold gemfibrozil all since both are fibrates (6) Hypertension: Qualifiers: Hypertension type: essential hypertension Qualified Code(s): I10 - Essential (primary) hypertension Code(s): I10 - Essential (primary) hypertension Status: Chronic Assessment and Plan: stable. monitor blood pressure. Continue verapamil. (7) GERD (gastroesophageal reflux disease): Qualifiers: Esophagitis presence: esophagitis presence not specified Qualified Code(s): K21.9 - Gastro-esophageal reflux disease without esophagitis Code(s): K21.9 - Gastro-esophageal reflux disease without esophagitis Status: Acute Assessment and Plan: PPI daily. (8) Hypokalemia: Code(s): E87.6 - Hypokalemia Status: Chronic Assessment and Plan: resolved Subjective Date/time seen: 08/23/19 16:17 Interval history: 69-year-old hypertensive white male alcoholic presented to the emergency room with chief complaint sharp right-sided substernal chest discomfort worsened with deep inspiration. D-dimer was elevated and CTA revealed right-sided emboli. Admits to drinking about a 5th of liquor a day and wanting to quit but has been through rehab several times as well withdrawal. Today denies any pain or shortness of breath. No gi/gu sx's. No bleeding. Review of Systems Review of Systems: All systems reviewed & are unremarkable except as noted in HPI and below Exam Narrative: Exam Narrative: Blood pressure 124/70 pulse is 72 saturating 94% on room air Pupils equal reactive light scl
[2019-08-23 22:00] VITALS: BP 116/63; PULSE 72; RESP 20; TEMP 36.8; O2SAT 97
[2019-08-24] VITALS (10 sets, daily range): BP systolic 115–137; BP diastolic 62–87; PULSE 61–78; RESP 14–20; TEMP 36.3–36.9; O2SAT 92–96
[2019-08-24] MEDS: CHLORDIAZEPOXIDE 25 MG CAPSULE 50 MG PO ×2 (00:14→11:01)
[2019-08-24] MEDS: AMPICILLIN 1 GM/NS 50 ML 1 GM/50 ML BAG IVPB ×3 (00:14→11:48)
[2019-08-24 06:22] LABS: Hematocrit 39.2 % (42.0-52.0); Hemoglobin 11.9 g/dL (14.0-18.0); Mean Corpuscular HGB Conc 30.4 g/dl (32-36); Mean Corpuscular Hemoglobin 25.9 pg (26-34); Mean Corpuscular Volume 85.2 fl (80-100); Mean Platelet Volume 10.4 fl (7.4-10.4); Platelet Count Result 274 k/mm3 (150-375); Red Cell Distribution Width 17.4 % (11.5-14.5); White Blood Count 5.2 K/mm3 (4.5-10.0)
--- NOTE | 2019-08-24 08:01 | WPDGICN ---
Assessment and Plan Additional Plan This is a 69-year-old white male patient seen in evaluation at the request of Dr. Jose Angel Jackman. The hospitalist service. Patient admitted to the hospital on 08/20/2019. He presented with mid chest discomfort. In the emergency room a CT a was performed found to show pulmonary embolus. Subsequent peripheral ultrasound revealed no evidence of lower extremity DVT. Anticoagulation is being considered. I am asked to see the patient because of a ongoing history of alcohol abuse. Patient reports he is known to have cirrhosis on this basis. He states 10-15 years ago underwent endoscopy and workup [facility]. He had hematemesis at that time an esophageal varices were identified. He continues to drink a 5th of alcohol routinely. He has had no recent bleeding. He has spotted blood with stool bowel habits intermittently. Family history is noncontributory. Past medical history is significant for alcoholism. Esophageal varices by history. GE reflux disease. Hypercholesterolemia. Hypertension. Previous surgery includes hernia repair. History of appendectomy. He has had a nose fracture. Current medications include boost per own. Famotidine 20 mg p.o. b.i.d.. Fenofibrate. Fluoxetine. Folic acid. Gemfibrozil.. Metronidazole. Naltrexone. And verapamil. No known drug allergies. Physical exam reveals patient to be alert. Vital signs stable. HEENT exam unremarkable. He is anicteric. Lungs are clear to auscultation and percussion. Heart is without murmur or extra sounds. Abdominal exam bowel sounds are present soft nontender with no hepatosplenomegaly. Digital external rectal exam is normal. Labs reveal WBC 5.2, hemoglobin 11.9, hematocrit 39.2, MCV 85. Platelets 274 K. Protime 12.2, INR 0.9. Electrolytes are normal. Liver function tests are normal. Albumin is 3.2. Impression 1. Alcoholism. 2. History of cirrhosis on the basis of alcoholism. He gives a history of bleeding from esophageal varices in the past. No recent bleeding noted. 3. Pulmonary embolism. Plan is for EGD to assess status of esophageal varices prior to starting anticoagulation. We will proceed with EGD today. Patient is strongly encouraged to abstain from alcohol. Clinically no overt evidence for cirrhosis by clinical exam. Further recommendations will be given after endoscopy. GI Consult Note Consult date/time: 08/24/19 08:01 HPI: Toro Zeng is a 69 year old male [facility] Past Medical History Medical History Alcoholism Anxiety Depression Deviated septum Esophageal varices GERD (gastroesophageal reflux disease) Hypercholesteremia Hypertension Nose fracture Surgical History Surgical History H/O hernia repair x2 History of appendectomy Family History Family History Father Alcoholism Congestive heart failure Mother Cancer Grandparent Diabetes mellitus Social History Social History Social History: he has no children. He is disabled. He stated that he drinks a 5th of vodka a day and is a lifelong nonsmoker Smoking status: Never smoker Alcohol intake: current Substance use: former Substance use type: former substance user, marijuana, heroin and other Other substance usage details: drinks 1/5 vodka daily Gender identity (if verbalized by the patient): Male Spiritual care concerns: No Agree to blood products: Yes Meds Home Medications and Allergies Home Medications Medication Instructions Recorded Confirmed Type fluoxetine 20 mg PO DAILY 06/13/19 08/21/19 History gemfibrozil 600 mg PO DAILY 06/13/19 08/21/19 History verapamil 240 mg PO DAILY 06/13/19 08/21/19 History buspirone 7.5 mg PO BID 08/20/19 08/21/19 History famotidine 20 mg
[2019-08-24 08:03] LABS: Blood Urea Nitrogen 7 mg/dL (9-20); Calcium 8.7 mg/dL (8.4-10.2); Carbon Dioxide 28 mmol/L (22-30); Chloride 102 mmol/L (98-107); Estimated CRCL calculation 112 ml/min; Estimated Glomerular Filt Rate > 60; Glucose 86 mg/dL (75-110); Potassium 3.9 mmol/L (3.4-5.0); Sodium 139 mmol/L (137-145)
[2019-08-24] MEDS: PANTOPRAZOLE 40 MG TABLET PO (08:24)
--- NOTE | 2019-08-24 08:36 | PC.NURSE ---
patient to GI lab per stretcher
[2019-08-24] MEDS: LACTATED RINGERS 1,000 ML 150 ML IV CONT (08:59)
--- NOTE | 2019-08-24 09:04 | WPDANESEPPF ---
Anes - Initial Pre Proc Eval Procedure: Operation Date: 08/24/19 09:30 Proposed Procedures p Esophagogastroduodenoscopy - Rex Hartman MD Date/Time: 08/24/19 09:04 Surgeon: Andrae Holder MD Pre Op Diagnosis: chest pain and anxiety++ Patient Data Age: 69 Gender: M Height: 5 ft 9 in Weight: 94.7 kg Last Vital Signs Temp 98.0 F 08/24/19 08:00 Pulse 68 08/24/19 08:09 Resp 16 08/24/19 08:00 BP 130/62 08/24/19 08:00 Pulse Ox 96 08/24/19 08:00 Allergies Allergy/AdvReac Type Severity Reaction Status Date / Time No Known Allergies Allergy Mild Verified 09/06/17 03:21 Home Medications Medication Instructions Recorded Confirmed Type fluoxetine 20 mg PO DAILY 06/13/19 08/21/19 History gemfibrozil 600 mg PO DAILY 06/13/19 08/21/19 History verapamil 240 mg PO DAILY 06/13/19 08/21/19 History buspirone 7.5 mg PO BID 08/20/19 08/21/19 History famotidine 20 mg PO BID 08/20/19 08/21/19 History fenofibrate nanocrystallized 145 mg PO DAILY 08/20/19 08/21/19 History folic acid 1 mg PO DAILY 08/20/19 08/21/19 History metronidazole 500 mg PO Q8H 08/20/19 08/21/19 History naltrexone 100 mg PO DAILY 08/20/19 08/21/19 History Laboratory Tests 08/24/19 08/24/19 05:18 07:20 WBC 5.2 K/mm3 K/mm3 (4.5-10.0) RBC 4.60 M/mm3 M/mm3 (4.6-6.20) Hgb 11.9 g/dL L g/dL (14.0-18.0) Hct 39.2 % L % (42.0-52.0) MCV 85.2 fl fl (80-100) MCH 25.9 pg L pg (26-34) MCHC 30.4 g/dl L g/dl (32-36) RDW 17.4 % H % (11.5-14.5) Plt Count 274 k/mm3 k/mm3 (150-375) MPV 10.4 fl fl (7.4-10.4) Sodium 139 mmol/L mmol/L (137-145) Potassium 3.9 mmol/L mmol/L (3.4-5.0) Chloride 102 mmol/L mmol/L (98-107) Carbon Dioxide 28 mmol/L mmol/L (22-30) BUN 7 mg/dL L mg/dL (9-20) Creatinine 0.60 mg/dL L mg/dL (0.7-1.3) Estim Creat Clear Calc 112 ml/min ml/min Estimated GFR > 60 (59 - ) Glucose 86 mg/dL mg/dL (75-110) Calcium 8.7 mg/dL mg/dL (8.4-10.2) Patient hx anesthesia problems: none Family hx anesthesia problems: none PMFSH Past Medical History Medical History Alcoholism Anxiety Depression Deviated septum Esophageal varices GERD (gastroesophageal reflux disease) Hypercholesteremia Hypertension Nose fracture Surgical History Surgical History H/O hernia repair x2 History of appendectomy Family History Family History Father Alcoholism Congestive heart failure Mother Cancer Grandparent Diabetes mellitus Social History Social History Social History: he has no children. He is disabled. He stated that he drinks a 5th of vodka a day and is a lifelong nonsmoker Smoking status: Never smoker Alcohol intake: current Substance use: former Substance use type: former substance user, marijuana, heroin and other Other substance usage details: drinks 1/5 vodka daily Gender identity (if verbalized by the patient): Male Spiritual care concerns: No Agree to blood products: Yes Anes - Eval Final PreProcedure Day of Procedure 08/24/19 09:04 Patient weight: overweight Heart: regular rate and rhythm Lungs: clear to auscultation Airway: Mallampati scale class III Last oral intake: >/= 8 hours ASA classification: IV Emergent: no Anesthetic plan: proceed Anesthesia type and monitoring: general GIVS and standard monitoring Informed Consent: The patient's anesthetic plan and its attendant risks and benefits were discussed with the patient/family/POA. Questions were solicited and answers provided to the satisfaction of the patient/family/POA.
[2019-08-24] MEDS: BENZOCAINE (*SP) 60 ML SPRAY CAN (HURRICAINE) 1 SPRAY MUCOUS MEM (09:44)
[2019-08-24] MEDS: THIAMINE HCL 100 MG TABLET PO (10:57)
[2019-08-24] MEDS: FLUOXETINE HCL 20 MG CAP PO (10:57)
[2019-08-24] MEDS: VERAPAMIL HCL ER 240 MG TABLET.ER PO (10:57)
[2019-08-24] MEDS: busPIRone HCL 5 MG TABLET PO (10:57)
[2019-08-24] MEDS: FENOFIBRATE NANOCRYSTALLIZED 145 MG TABLET PO (10:57)
[2019-08-24] MEDS: busPIRone HCL 2.5 MG TABLET PO (10:57)
[2019-08-24] MEDS: FOLIC ACID 1 MG TABLET PO (10:58)
--- NOTE | 2019-08-24 14:36 | PC.NURSE ---
On 08/24/19, the student, [ Charla Sy], provided care and completed [facility] documentation on this patient. I have reviewed the student's documentation and agree with the findings.
--- NOTE | 2019-08-24 14:55 | PM.DS ---
DS: Diagnosis Admitting Diagnosis Admitting Diagnosis: Chest pain, unspecified Discharge Diagnosis (1) Acute pulmonary embolism: Qualifiers: Acute cor pulmonale presence: without acute cor pulmonale Pulmonary embolism type: unspecified Qualified Code(s): I26.99 - Other pulmonary embolism without acute cor pulmonale Code(s): I26.99 - Other pulmonary embolism without acute cor pulmonale Status: Acute Assessment and Plan: No record of EGD or other evaluation in the [facility] system 08/24 EGD negative for varices or other pathology Start Xarelto 15mg bid x 21 days, the 20mg q pm (2) Alcohol withdrawal: Qualifiers: Complication of substance-induced condition: with unspecified complication Qualified Code(s): F10.239 - Alcohol dependence with withdrawal, unspecified Code(s): F10.239 - Alcohol dependence with withdrawal, unspecified Status: Acute Assessment and Plan: Presented w/ confusion, tremors, anxiety, nausea, diaphoresis. CIWA-AR protocol. Librium PO scheduled. Ativan IV withdrawal prohylaxis. Thaimine IV daily. The patient has verbalized his desire to quit drinking alcohol. He has been through rehab in the past and always relapsed. He is aware of community resources. (3) UTI (urinary tract infection): Qualifiers: Hematuria presence: with hematuria Urinary tract infection type: site unspecified Qualified Code(s): N39.0 - Urinary tract infection, site not specified; R31.9 - Hematuria, unspecified Code(s): N39.0 - Urinary tract infection, site not specified Status: Acute Assessment and Plan: w/ abnormal urinalysis and dysuria. Ampicillin for enteroccus while inpatient home on amoxicillin (4) Depression: Qualifiers: Active/Remission status: currently active Depression Type: major depressive disorder Major depression episode severity: severe Major depression recurrence: recurrent Psychotic features: without psychotic features Qualified Code(s): F33.2 - Major depressive disorder, recurrent severe without psychotic features Code(s): F32.9 - Major depressive disorder, single episode, unspecified Status: Chronic Assessment and Plan: Continue buspar. And p.r.n. lorazepam for anxiety (5) Hypercholesteremia: Code(s): E78.00 - Pure hypercholesterolemia, unspecified Status: Chronic Assessment and Plan: Continue fenofibrate but hold gemfibrozil all since both are fibrates (6) Hypertension: Qualifiers: Hypertension type: essential hypertension Qualified Code(s): I10 - Essential (primary) hypertension Code(s): I10 - Essential (primary) hypertension Status: Chronic Assessment and Plan: stable. monitor blood pressure. Continue verapamil. (7) GERD (gastroesophageal reflux disease): Qualifiers: Esophagitis presence: esophagitis presence not specified Qualified Code(s): K21.9 - Gastro-esophageal reflux disease without esophagitis Code(s): K21.9 - Gastro-esophageal reflux disease without esophagitis Status: Acute Assessment and Plan: PPI daily. (8) Hypokalemia: Code(s): E87.6 - Hypokalemia Status: Chronic Assessment and Plan: resolved DS: Summary Hospital Course Reason for hospitalization: Midsternal chest pain Hospital Course: Sudden onset of midsternal chest pain while watching television. Short of breath. Emergency department evaluation showed CTA positive for right lower lobe pulmonary emboli. Venous Dopplers negative. Anticoagulated with Lovenox. Because of a history of esophageal varices records were obtained from [facility]. However they had no record of any GI evaluation there. Patient states that was several years ago. Repeat EGD here on August 24 showed no varices or other upper GI pathology. He did not bleed while on Lovenox. Therefore at discharge Xarelto 15 mg twice
[2019-08-24] MEDS: RIVAROXABAN 15 MG TABLET PO (17:21)
== END 2019-08-24 17:15 | disposition home health service (06) | DRG 176 ==
LOC: ANHED 21:09 → ANHIMU 21:16 → ANH3MEDSUR 08-21 13:31
PROVIDERS: Internal Medicine; Internal Medicine Gastroenterology; Admitting Provider Family Medicine; Emergency Provider General Practice; Visit Provider Internal Medicine
PROC: 0DJ08ZZ Inspection of Upper Intestinal Tract, Via Natural or Artificial Opening Endoscopic (ICD-10-PCS; CPT 43235; principal; 2019-08-24 09:30)
DX: I26.99 Other pulmonary embolism without acute cor pulmonale (principal); F10.239 Alcohol dependence with withdrawal, unspecified; N39.0 Urinary tract infection, site not specified; B95.2 Enterococcus as the cause of diseases classified elsewhere; R31.9 Hematuria, unspecified; E78.00 Pure hypercholesterolemia, unspecified; I10 Essential (primary) hypertension; K21.9 Gastro-esophageal reflux disease without esophagitis; E87.6 Hypokalemia; F41.8 Other specified anxiety disorders; K70.30 Alcoholic cirrhosis of liver without ascites
CPT/HCPCS: 36415; 70450; 71046; 71275; 80048; 80069; 80076; 80307; 81001; 82565; 83690; 83735; 84484; 85025; 85027; 85380; 85610; 85730; 87077; 87086; 87088; 87186; 93005; 93970; 96361; 96365; 96366; 96372; 96374; 96375; 96376; 99285; A9270; C9113; G0378; J0290; J0696; J1650; J2060; J2270; J2405; J2704; J3370; J7050; J7120; Q9967

== ENCOUNTER 2019-11-10 12:16 | Observation (INO) | payer MEDICARE, SELFPAY ==
[2019-11-10] VITALS (8 sets, daily range): BP systolic 143–155; BP diastolic 71–91; PULSE 61–102; RESP 0–18; TEMP 36.2–36.9; O2SAT 90–99; BMI 31.3
--- NOTE | ~2019-11-10 | CT_ITS ---
EXAMINATION: CT brain wo con DATE: 11/10/2019 13:06 INDICATION: Head injury post fall TECHNIQUE: Computed tomography (CT) of the head was performed without intravenous contrast. Sagittal and coronal reconstructions were performed. The mA was adjusted according to patient size. Iterative reconstruction technique was employed. The dose-length product was 681.00 mGy-cm. COMPARISON: head CT dated 08/21/2019 FINDINGS: No acute intracranial hemorrhage, acute infarction or abnormal extra axial fluid collection. There is minimal scattered white matter hypoattenuation consistent with chronic small vessel ischemic disease . Symmetric prominence of the sulci consistent with mild age-appropriate diffuse cerebral volume loss . Ventricles are normal and symmetric. No mass/mass effect. Old left nasal bone fracture deformity. N o acute fracture. The orbits and mastoid air cells are normal. Minimal mucosal thickening in the righ t ethmoid sinus. IMPRESSION: 1. No fracture or acute intracranial process. 2. Age-related changes including mild diffuse volume loss and minimal scattered white matter hypoatte nuation consistent with chronic small vessel ischemic disease. Reviewed, dictated and finalized at location A. IMPRESSION: 1. No fracture or acute intracranial process. 2. Age-related changes including mild diffuse volume loss and minimal scattered white matter hypoattenuation consistent with chronic small vessel ischemic dis ease.
--- NOTE | ~2019-11-10 | XR_ITS ---
EXAMINATION: XR chest 2V 11/10/2019 13:10 INDICATION: Chest pain PROCEDURE: 2 view chest COMPARISON: Comparison to multiple prior studies sequentially, with oldest reviewed study dated 05/07. FINDINGS: The lungs are clear. The cardiomediastinal silhouette is within normal limits. There are no pleural effusions. There is no pneumothorax suspected. IMPRESSION: 1: NO ACUTE CARDIOPULMONARY DISEASE. Reviewed, dictated and finalized at location A.
--- NOTE | 2019-11-10 12:25 | ED.CHESTPAIN ---
HPI - Chest Pain General Chief Complaint: Chest Pain Stated Complaint: Nausea Time Seen by Provider: 11/10/19 12:16 History of Present Illness HPI narrative: 69 yo male w/ h/o alcoholism and DVT presents to the ED c/o chest pain and nausea. He has had these since waking up this morning. He believe that he is hungover 2/2 drinking last night. Additionally he cut his upper lip. History limited by intoxication and poor recall. Related Data Home Medications Medication Instructions Recorded Confirmed buspirone 7.5 mg PO BID 08/20/19 11/10/19 folic acid 1 mg PO DAILY 08/20/19 11/10/19 naltrexone 50 mg PO DAILY 08/20/19 11/10/19 Xarelto 15 mg PO BID 11/10/19 11/10/19 gemfibrozil 600 mg PO DAILY 11/10/19 11/10/19 sertraline 100 mg PO DAILY 11/10/19 11/10/19 verapamil 240 mg PO DAILY 11/10/19 11/10/19 Allergies Allergy/AdvReac Type Severity Reaction Status Date / Time No Known Allergies Allergy Mild Verified 09/06/17 03:21 Review of Systems Review of Systems: All systems reviewed & are unremarkable except as noted in HPI and below Constitutional: Constitutional: Denies fever(s) Cardiovascular: Cardiovascular: Reports chest pain and Reports rapid heart rate Respiratory: Respiratory: Denies dyspnea Gastrointestinal: Gastrointestinal: Reports abdominal pain and Reports nausea Neurologic: Reports dizziness Psychiatric: Psychiatric: Reports anxiety and Reports depression PMFSH Past Medical History Medical History Alcoholism Anxiety Depression Deviated septum Esophageal varices GERD (gastroesophageal reflux disease) Hypercholesteremia Hypertension Nose fracture Surgical History Surgical History H/O hernia repair x2 History of appendectomy Family History Family History Father Alcoholism Congestive heart failure Mother Cancer Grandparent Diabetes mellitus Social History Social History Social History: he has no children. He is disabled. He stated that he drinks a 5th of vodka a day and is a lifelong nonsmoker Smoking status: Former smoker Alcohol intake: current Substance use: former Substance use type: former substance user, marijuana, heroin and other Other substance usage details: drinks 1/5 vodka daily Gender identity (if verbalized by the patient): Male Spiritual care concerns: No Agree to blood products: Yes Exam Const: General: alert Orientation/consciousness: patient oriented x3 HENMT: Other: <1 cm laceration to lower lip/chin Resp: Effort & Inspection: normal respiratory effort Auscultation: clear to auscultation bilaterally Cardio: Rate: regular rate Rhythm: regular rhythm Skin: General skin exam: normal color Neuro: General: patient oriented x3, moves all extremities and no focal motor deficits Speech: normal speech Other: tremor Extrem: General: no edema Psych: Affect: Sad affect present and Anxious affect present Course Course Emergency Course: On reevaluation he is now tahcycardic with worsening tremor and seems to be mildly confused. He is also not stable on his feet. I will plan to admit for observation. Vital Signs Vital signs: Vital Signs Temperature 36.9 C 11/10/19 12:15 Pulse Rate 94 11/10/19 12:15 Respiratory Rate 16 11/10/19 12:15 Blood Pressure 143/91 H 11/10/19 12:15 Pulse Oximetry 99 11/10/19 12:15 Temperature 36.1 C L 11/11/19 12:00 Pulse Rate 78 11/11/19 12:00 Respiratory Rate 20 11/11/19 12:00 Blood Pressure 148/86 H 11/11/19 12:00 Pulse Oximetry 95 11/11/19 12:00 MDM - Chest Pain MDM Narrative Medical decision making narrative: alcohol withdrawal, head injury, facial laceration, ACS, GERD Lab Data Result diagrams: 11/11/19 04:03 11/11/19 04:03
--- NOTE | 2019-11-10 12:37 | ECG_ITS ---
Measurements Intervals [place] Rate: 88 P: 12 AR: 177 QRS: -39 QRSD: 77 T: -6 QT: 390 QTc: 472 Interpretive Statements SINUS RHYTHM LEFT AXIS DEVIATION ANTEROSEPTAL INFARCT, AGE INDETERMINATE CONSIDER INFERIOR INFARCT, AGE INDETERMINATE BASELINE ARTIFACT- I, II, V3-V4 ABNORMAL ECG Electronically Signed On 11-10-2019 13:39:40 CDT by Gumaro Glover D.O.
[2019-11-10] MEDS: LORAZEPAM INJ 2 MG/ML VIAL 1 MG IV PUSH ×2 (12:49→23:26)
[2019-11-10] MEDS: THIAMINE HCL 200 MG/2 ML VIAL 100 MG IV PUSH (12:49)
[2019-11-10] MEDS: SODIUM CHLORIDE 0.9% IV 1,000 ML 999 ML IV CONT ×2 (12:49→15:30)
[2019-11-10 13:03] LABS: Basophils Percent Auto 0.7 % (0.2-1.2); Eosinophils Percent Auto 0.2 % (0-4.4); Hematocrit 43.1 % (42.0-52.0); Hemoglobin 14.2 g/dL (14.0-18.0); Immature Granulocyte Absolute 0.02 K/mm3 (0.00-0.031); Immature Granulocyte Percent A 0.3 % (0-0.5); Lymphocytes Absolute Auto 1.44 K/mm3 (0.9-3.2); Lymphocytes Percent Auto 24.1 % (18.3-44.2); Mean Corpuscular HGB Conc 32.9 g/dl (32-36); Mean Corpuscular Hemoglobin 26.8 pg (26-34); Mean Corpuscular Volume 81.3 fl (80-100); Mean Platelet Volume 9.2 fl (7.4-10.4); Monocytes Absolute Auto 0.5 K/mm3 (0.1-0.6); Monocytes Percent Auto 8.5 % (2.6-8.5); Neutrophils Percent Auto 66.2 % (45.5-73.1); Platelet Count Result 226 k/mm3 (150-375); Red Cell Distribution Width 16.5 % (11.5-14.5)
[2019-11-10 13:13] LABS: Partial Thromboplastin Time 25.7 SECONDS (22.3-36.8); Prothrombin Time 12.7 Seconds (11.1-14.7)
[2019-11-10 13:15] LABS: Alanine Aminotransferase 45 U/L (4-50); Albumin Level 4.3 g/dL (3.5-5.1); Alkaline Phosphatase 94 U/L (38-126); Aspartate Amino Transferase 241 U/L (17-59); Bilirubin,Total 0.7 mg/dL (0.2-1.3); Blood Urea Nitrogen 8 mg/dL (9-20); Calcium 8.5 mg/dL (8.4-10.2); Carbon Dioxide 23 mmol/L (22-30); Chloride 98 mmol/L (98-107); Estimated CRCL calculation 111 ml/min; Estimated Glomerular Filt Rate > 60; Glucose 79 mg/dL (75-110); Potassium 3.6 mmol/L (3.4-5.0); Sodium 135 mmol/L (137-145)
[2019-11-10 13:16] LABS: Ethanol 169 mg/dL (<10)
[2019-11-10 13:27] LABS: Troponin I < 0.012 ng/mL (0.000-0.034)
[2019-11-10 16:44] LABS: Troponin I < 0.012 ng/mL (0.000-0.034)
--- NOTE | 2019-11-10 19:38 | PM.IMHP ---
H&P: HPI History of Present Illness Chief complaint: Alcohol withdrawal Narrative: This is an unfortunate 69 year old male who is known to be anticoagulated on Xarelto secondary to a recent pulmonary embolism and known to suffer from alcoholism who presented to the hospital today with a complaint of midsternal chest pain and falling last night. The patient admits to me that he has been drinking heavily daily and last night he fell while in the bathroom. He denies any loss of consciousness. He suffered a laceration to his lip last night when he fell. Today in the ER the patient has been evaluated and found to be in acute alcohol withdrawal with tremors, anxiety, and confusion. The patient denies any previous history of heart disease to me tonight. The patient verbalized that he desires to quit drinking alcohol. His only other complaints tonight are diffuse body aches. The patient's initial and second troponin have been negative. No other complaints. Review of Systems Review of Systems: All systems reviewed & are unremarkable except as noted in HPI and below PMFSH Past Medical History Medical History Alcoholism Anxiety Depression Deviated septum Esophageal varices GERD (gastroesophageal reflux disease) Hypercholesteremia Hypertension Nose fracture Surgical History Surgical History H/O hernia repair x2 History of appendectomy Family History Family History Father Alcoholism Congestive heart failure Mother Cancer Grandparent Diabetes mellitus Social History Social History Social History: he has no children. He is disabled. He stated that he drinks a 5th of vodka a day and is a lifelong nonsmoker Smoking status: Former smoker Alcohol intake: current Substance use: former Substance use type: former substance user, marijuana, heroin and other Other substance usage details: drinks 1/5 vodka daily Gender identity (if verbalized by the patient): Male Spiritual care concerns: No Agree to blood products: Yes Meds Home Medications and Allergies Home Medications Medication Instructions Recorded Confirmed Type buspirone 7.5 mg PO BID 08/20/19 11/10/19 History folic acid 1 mg PO DAILY 08/20/19 11/10/19 History naltrexone 50 mg PO DAILY 08/20/19 11/10/19 History metoprolol succinate 50 mg PO DAILY #30 tablet 08/24/19 11/10/19 Rx gemfibrozil 600 mg PO DAILY 11/10/19 11/10/19 History rivaroxaban [Xarelto] 15 mg PO BID 11/10/19 11/10/19 History sertraline 100 mg PO DAILY 11/10/19 11/10/19 History verapamil 240 mg PO DAILY 11/10/19 11/10/19 History Allergies Allergy/AdvReac Type Severity Reaction Status Date / Time No Known Allergies Allergy Mild Verified 09/06/17 03:21 Vital Signs Vital Signs - 24 hr 11/10/19 12:15 Temperature 36.9 C Pulse Rate 94 Respiratory Rate 16 Blood Pressure 143/91 H Pulse Oximetry 99 Exam Const: General: cooperative, awake, anxious, confusion, diaphoretic, intoxicated appearing and other (Anxious and withdrawing from alcohol++ ) Nutritional Appearance: obese Orientation/consciousness: oriented to person and oriented to place HENMT: Head: No palpable skull fracture present and other General nose exam: Normal external nose present Face and sinus: other (laceration of his lip+) Mouth: Yes Normal oral and palatal mucosa present and Yes oropharynx normal Eyes: Pupils: Equal, round and reactive pupils present EOM: EOMs intact bilaterally Neck: Neck: supple and no JVD Thyroid: thyroid normal Lymphatic: lymphadenopathy not noted Resp: Effort & Inspection: normal respiratory effort Auscultation: clear to auscultation bilaterally Cardio: Rate: tachycardic Rhythm: regular rhythm Heart sounds: no murmurs GI: Inspection: normal to inspec
[2019-11-10] MEDS: LORAZEPAM INJ 2 MG/ML VIAL IV PUSH (19:50)
--- NOTE | 2019-11-10 20:58 | ADMGEN ---
This patient, Toro Zeng, was admitted to IMU Room 201-01. Patient/family oriented to hospital policies and general routines including ID bracelet, bed and alarms, visiting hours, pain management, procedures, bathroom and other care routines, personal items, smoking policy, room service/diet, and visiting hours. Valuables list has been completed. Information on how to activate the Rapid Response Team has been discussed. Patient/Family are encouraged to report perceived risks to care and to ask questions if they do not understand what they are told or what they should do.
[2019-11-10] MEDS: LACTATED RINGERS 1,000 ML 125 ML IV CONT (21:25)
[2019-11-10 22:53] LABS: Troponin I < 0.012 ng/mL (0.000-0.034)
[2019-11-10] MEDS: CHLORDIAZEPOXIDE 25 MG CAPSULE PO (23:06)
[2019-11-11] VITALS (9 sets, daily range): BP systolic 129–148; BP diastolic 82–91; PULSE 61–98; RESP 18–20; TEMP 36–37.1; O2SAT 95–99
[2019-11-11] MEDS: GLUCOSE ORAL GEL 15 GM OF GLUCSE IN 37.5 GM TUBE PO
[2019-11-11 00:33] LABS: Glucose Point of Care 93 (65-105)
[2019-11-11 00:33] LABS: Glucose Point of Care 55 (65-105)
[2019-11-11] MEDS: RIVAROXABAN 15 MG TABLET PO (00:48)
[2019-11-11] MEDS: busPIRone HCL 2.5 MG TABLET PO ×2 (00:48→08:29)
[2019-11-11] MEDS: busPIRone HCL 5 MG TABLET PO ×2 (00:48→08:29)
[2019-11-11 02:47] LABS: Add Urine Microscopic? YES; Appearance Urine Clear (Clear); Bilirubin Urine Negative (Negative); Blood Urine Negative (Negative); Color Urine Yellow (Yellow); Glucose Urine UA Negative (Negative); Ketones Urine 1+ mg/dL (Negative); Leukocyte Esterase Ur Negative LEU/UL (Negative); Mucus Urine Rare /lpf; Nitrate Urine Negative (Negative); Protein Urine 1+ mg/dL (Negative); RBC Urine 0-2 /hpf (0-2); Specific Grav Ur 1.011 (1.001-1.035); WBC Urine 0-3 /hpf
[2019-11-11] MEDS: LACTATED RINGERS 1,000 ML 125 ML IV CONT ×2 (04:12→12:20)
[2019-11-11] MEDS: LORAZEPAM INJ 2 MG/ML VIAL 1 MG IV PUSH ×2 (04:12→08:37)
[2019-11-11 04:35] LABS: Basophils Percent Auto 0.6 % (0.2-1.2); Eosinophils Absolute Auto 0.1 K/mm3 (0-0.3); Eosinophils Percent Auto 1.5 % (0-4.4); Hemoglobin 12.7 g/dL (14.0-18.0); Immature Granulocyte Absolute 0.01 K/mm3 (0.00-0.031); Immature Granulocyte Percent A 0.3 % (0-0.5); Immature Platelet Fraction Pct 2.8 % (0.9-11.2); Lymphocytes Absolute Auto 0.92 K/mm3 (0.9-3.2); Lymphocytes Percent Auto 27.1 % (18.3-44.2); Mean Corpuscular HGB Conc 31.8 g/dl (32-36); Mean Corpuscular Hemoglobin 26.1 pg (26-34); Mean Corpuscular Volume 82.3 fl (80-100); Mean Platelet Volume 9.8 fl (7.4-10.4); Monocytes Absolute Auto 0.5 K/mm3 (0.1-0.6); Monocytes Percent Auto 13.3 % (2.6-8.5); Neutrophils Absolute Auto 1.9 K/mm3 (1.3-6.7); Neutrophils Percent Auto 57.2 % (45.5-73.1); Platelet Count Result 130 k/mm3 (150-375); Red Blood Count 4.86 M/mm3 (4.6-6.20); Red Cell Distribution Width 16.3 % (11.5-14.5); White Blood Count 3.4 K/mm3 (4.5-10.0)
[2019-11-11 04:52] LABS: Blood Urea Nitrogen 8 mg/dL (9-20); Calcium 8.1 mg/dL (8.4-10.2); Carbon Dioxide 28 mmol/L (22-30); Chloride 98 mmol/L (98-107); Estimated CRCL calculation 114 ml/min; Estimated Glomerular Filt Rate > 60; Glucose 111 mg/dL (75-110); Potassium 3.3 mmol/L (3.4-5.0); Sodium 134 mmol/L (137-145)
[2019-11-11] MEDS: CHLORDIAZEPOXIDE 25 MG CAPSULE PO ×2 (05:21→12:20)
[2019-11-11 06:16] LABS: Glucose Point of Care 96 (65-105)
[2019-11-11] MEDS: VERAPAMIL HCL ER 240 MG TABLET.ER PO (08:29)
[2019-11-11] MEDS: METOPROLOL SUCCINATE EXT REL 50 MG TABCR PO (08:29)
[2019-11-11] MEDS: gemfibroziL 600 MG TABLET PO (08:29)
[2019-11-11] MEDS: FOLIC ACID 1 MG TABLET PO (08:30)
[2019-11-11] MEDS: SERTRALINE HCL 50 MG TABLET 100 MG PO (08:30)
[2019-11-11] MEDS: THIAMINE HCL 200 MG/2 ML VIAL 100 MG IV PUSH (08:30)
--- NOTE | 2019-11-11 10:59 | PM.CNCAR ---
Assessment and Plan Additional Plan 69-year-old gentleman with: Chest pain related to falling in his home the setting of alcohol intoxication. No electrocardiographic evidence of or biomarker evidence of acute coronary syndrome At this point I do not believe he needs to be kept in the hospital for further cardiac assessment/evaluation Disposition per the primary team Ulises Lomeli MD [facility] History of Present Illness History of Present Illness Consult date/time: Date of service: 11/11/19 10:59 Consult reason: chest pain Reason For Visit: Alcohol withdrawal Narrative: This is a 69-year-old man that I am seeing at the request of the hospitalist because of chest pain. The patient is a poor historian presumably because he is an alcoholic and does not have great recall events from prior to coming in the hospital as he was intoxicated. In any event he does remember drinking heavily yesterday and falling in his residence. He lives at [facility] in an independent living apartment. He can't really tell me why he needs to live there rather than his own home. In any event after falling he had some chest pain he thinks he probably struck to the left side of his chest on a piece of furniture something although he was in the bathroom when he fell. His chest was sore to touch and he was brought to the emergency room for evaluation. In the ED his electrocardiogram shows a sinus mechanism/sinus tachycardia but no evidence of acute myocardial injury. Troponin levels were sample x3 sets and they are negative. He was admitted for observation and to rule out an acute coronary syndrome. He states he is not known to have any cardiac problems prior to this that he is aware of. He does state that he has a history of hypertension the chart indicates he had a recent pulmonary embolism and for this he appears to be on Xarelto. He can't really remember much about the details of that. When he was in his usual state of health he states he is not experiencing chest pain pressure or heaviness with walking or sustained activity. He denies any sense of palpitations orthopnea PND or syncope. Review of Systems Review of Systems: ROS unobtainable: Yes unobtainable due to mental status PMFSH Past Medical History Medical History Alcoholism Anxiety Depression Deviated septum Esophageal varices GERD (gastroesophageal reflux disease) Hypercholesteremia Hypertension Nose fracture Surgical History Surgical History H/O hernia repair x2 History of appendectomy Family History Family History Father Alcoholism Congestive heart failure Mother Cancer Grandparent Diabetes mellitus Social History Social History Social History: he has no children. He is disabled. He stated that he drinks a 5th of vodka a day and is a lifelong nonsmoker Smoking status: Former smoker Alcohol intake: current Substance use: former Substance use type: former substance user, marijuana, heroin and other Other substance usage details: drinks 1/5 vodka daily Gender identity (if verbalized by the patient): Male Spiritual care concerns: No Agree to blood products: Yes Meds Home Medications and Allergies Home Medications Medication Instructions Recorded Confirmed Type buspirone 7.5 mg PO BID 08/20/19 11/10/19 History folic acid 1 mg PO DAILY 08/20/19 11/10/19 History naltrexone 50 mg PO DAILY 08/20/19 11/10/19 History metoprolol succinate 50 mg PO DAILY #30 tablet 08/24/19 11/10/19 Rx gemfibrozil 600 mg PO DAILY 11/10/19 11/10/19 History rivaroxaban [Xarelto] 15 mg PO BID 11/10/19 11/10/19 History sertraline 100 mg PO DAILY 11/10/19 11/10/19 History verapamil 240 mg PO DAILY 11/10/19 11/10/19 History Allergies Allergy/AdvReac Type Se
[2019-11-11] MEDS: POTASSIUM CHLORIDE 20 MEQ TABLET 40 MEQ PO (12:20)
[2019-11-11 12:41] LABS: Glucose Point of Care 95 (65-105)
--- NOTE | 2019-11-14 22:15 | PM.DS ---
DS: Diagnosis Admitting Diagnosis Admitting Diagnosis: Chest pain, unspecified Discharge Diagnosis (1) Chest pain: Code(s): R07.9 - Chest pain, unspecified Status: Acute (2) Alcohol withdrawal: Qualifiers: Complication of substance-induced condition: with unspecified complication Qualified Code(s): F10.239 - Alcohol dependence with withdrawal, unspecified Code(s): F10.239 - Alcohol dependence with withdrawal, unspecified Status: Resolved (3) Alcohol abuse: Code(s): F10.10 - Alcohol abuse, uncomplicated Status: Chronic (4) Laceration of lip: Qualifiers: Encounter type: initial encounter Qualified Code(s): S01.511A - Laceration without foreign body of lip, initial encounter Code(s): S01.511A - Laceration without foreign body of lip, initial encounter Status: Acute (5) Chronic anticoagulation: Code(s): Z79.01 - advertising vice president (current) use of anticoagulants Status: Chronic (6) GERD (gastroesophageal reflux disease): Qualifiers: Esophagitis presence: esophagitis presence not specified Qualified Code(s): K21.9 - Gastro-esophageal reflux disease without esophagitis Code(s): K21.9 - Gastro-esophageal reflux disease without esophagitis Status: Chronic (7) Hypertension: Qualifiers: Hypertension type: essential hypertension Qualified Code(s): I10 - Essential (primary) hypertension Code(s): I10 - Essential (primary) hypertension Status: Chronic (8) Hypercholesteremia: Code(s): E78.00 - Pure hypercholesterolemia, unspecified Status: Chronic DS: Summary Hospital Course Reason for hospitalization: Chest pain Hospital Course: Date of Service: 11/11/19 Mr. Zegn is a 69 y.o. male with PMH significant for recent pulmonary embolism 08/2019 on xarelto, alcohol dependence, depression, and hypertension who presented to the ED for evaluation of chest pain after falling. He resides at [facility]. He reported a fall after drinking heavily and suffered a laceration to his lower lip during the fall. He believed that he hit his left chest on furniture in the bathroom with his fall. Initial vitals on presentation to the ED were: Temp Pulse Resp BP Pulse Ox 98.5 F 94 16 143/91 H 99 11/10/19 12:15 11/10/19 12:15 11/10/19 12:15 11/10/19 12:15 11/10/19 12:15 Initial workup in the ED revealed: WBC 3,400, Hb 1.7, Hct 40, sodium 134, potassium 3.3. Metabolic panel was otherwise unremarkable. Troponin were trended and were negative x3, <0.012. EKG revealed sinus rhythm with left axis deviation and non-specific ST change unchanged from prior EKGs with no evidence of acute IN. Cardiology was consulted and he was admitted to the IM with telemetry for observation. He was evaluated by cardiology who recommended no further cardiac assessment/evaluation as his chest pain was felt to be due to his fall and not due to acute coronary syndrome. He had tenderness to palpation of the left chest wall. I had a long discussion with the patient regarding alcohol cessation. He was not interested in referral to an inpatient alcohol rehabilitation program but is aware of community resources and outpatient options available to aid in alcohol cessation. I discussed the bleeding risks of xarelto with continued alcohol use and he verbalized understanding and is going to try to quit drinking. He was advised to take fall precautions. He was discharged in stable condition to [facility] on the afternoon of 11/10. Status at Discharge Functional status at discharge: independent ambulation Overall status at discharge: patient is back to baseline Time Spent with Patient Time attestation: Total time spent providing and/or coordinating discharge services: 30 minutes Exam Narrative: Exam Narrative: General: Well-developed, well-nourished 69 y.o. male lying in the semi-recumbent position watching TV in bed in no
== END 2019-11-11 15:00 | disposition home or self-care (01) ==
LOC: ANHED 19:40 → ANHIMU 11-11 07:12
PROVIDERS: Admitting Provider Family Medicine; Emergency Provider Emergency Medicine; Visit Provider Physician Assistant
DX: R07.89 Other chest pain (principal); F10.239 Alcohol dependence with withdrawal, unspecified; S01.511A Laceration without foreign body of lip, initial encounter; E78.00 Pure hypercholesterolemia, unspecified; I10 Essential (primary) hypertension; K21.9 Gastro-esophageal reflux disease without esophagitis; W19.XXXA Unspecified fall, initial encounter; Z86.711 Personal history of pulmonary embolism; Z87.891 Personal history of nicotine dependence; Z79.01 Long term (current) use of anticoagulants; Z79.899 Other long term (current) drug therapy
CPT/HCPCS: 36415; 70450; 71046; 80048; 80053; 80307; 81001; 84484; 85025; 85055; 85610; 85730; 93005; 96361; 96374; 96375; 96376; 99285; A9270; G0378; J2060; J3411; J7030; J7120

== ENCOUNTER 2020-11-13 19:11 | Inpatient (IN) | payer MEDICARE, SELFPAY ==
--- NOTE | ~2020-11-13 | XR_ITS ---
EXAMINATION: XR chest 1V portable EXAM DATE: 11/13/2020 19:46 INDICATION: Initial encounter following injury, with pain of the sternum. TECHNIQUE: Portable AP frontal chest x-ray was obtained. Comparison is made to prior examination from 11/10/2019. FINDINGS: Probable goiter causing some mass effect on the left side of the trachea. The lungs are carlitos ar. There are no pleural effusions. Cardiac silhouette is prominent but magnified on this AP techni que. There is no pneumothorax suspected. Cervical fusion hardware. IMPRESSION: No acute cardiopulmonary findings. Reviewed, dictated and finalized at location A.
--- NOTE | ~2020-11-13 | XR_ITS ---
EXAMINATION: XR shoulder LT min 2V DATE: 11/15/2020 12:52 INDICATION: Left shoulder pain post fall TECHNIQUE: AP internally and externally rotated, AP oblique externally rotated and transscapular Y vi ews of the left shoulder were obtained. COMPARISON: 09/07/2011 FINDINGS: Normal alignment. No fracture.Mild glenohumeral and acromioclavicular osteoarthritis. Severe facet o steoarthritis at the left side of the cervical spine. Plate and screw fixation for cervical anterior spinal fusion. Soft tissues are unremarkable. Visualized portion of the lungs are clear. IMPRESSION: Mild left glenohumeral and acromioclavicular osteoarthritis. Reviewed, dictated and finalized at location A.
--- NOTE | ~2020-11-13 | CT_ITS ---
EXAMINATION: CT abdomen pelvis w con EXAM DATE: 11/13/2020 22:25 INDICATION: Abdominal pain, constipation. TECHNIQUE: Spiral CT of the abdomen and pelvis was performed following intravenous injection of 100 m L Omnipaque 350. Axial, coronal and sagittal images of the abdomen and pelvis were reviewed. The do se-length product (DLP) for this examination was 1120.94 mGy-cm. The exposure was tailored according to patient size (auto mA exposure control), and iterative reconstruction (ASIR) was used as addition al dose reduction technique. Comparison is made to prior examination from 06/14/2019. FINDINGS: There is hepatic steatosis without suspicious focal lesion identified. Spleen, adrenal glan ds, pancreas are unremarkable. Gallbladder is unremarkable. No biliary obstruction. Portal and spl enic veins are patent. Kidneys enhance symmetrically. There is no hydronephrosis. There is probable 3 mm right inferior calyceal stone. The bladder is unremarkable. Mildly enlarged periportal lymph nodes, with some calcification. These are not significantly changed and probably reactive. There is mild scattered arteriosclerotic disease. There are no findings to suggest appendicitis. The stomach and small bowel are unremarkable. Mildly distended rectal vault at 6 cm diameter, but only small amount of stool within other portions of the colon. No free intraperitoneal gas. The heart is normal in size. There are no pericardial or pl eural effusions. Lower lobe granuloma. There is left hip arthroplasty. IMPRESSION: 1. Mildly distended rectal vault, overall small amount of colonic contents. 2. Hepatic steatosis. 3. Small right nephrolithiasis. Reviewed, dictated and finalized at location A.
[2020-11-13 19:12] VITALS: PULSE 121; RESP 15; TEMP 36.7; O2SAT 99
--- NOTE | 2020-11-13 19:23 | ECG_ITS ---
Measurements Intervals [place] Rate: 126 P: 82 [place]: 154 QRS: -48 QRSD: 76 T: 31 QT: 400 QTc: 580 Interpretive Statements SINUS TACHYCARDIA LEFT AXIS DEVIATION ANTEROSEPTAL INFARCT, AGE INDETERMINATE INFERIOR INFARCT, AGE INDETERMINATE BASELINE ARTIFACT- V1 ABNORMAL ECG Electronically Signed On 11-14-2020 6:49:26 CDT by Gumaro Glover D.O.
[2020-11-13 19:46] LABS: Glucose Point of Care 87 (65-105)
[2020-11-13 19:49] LABS: Hemoglobin 17.4 g/dL (14.0-18.0); Mean Corpuscular HGB Conc 34.1 g/dl (32-36); Mean Corpuscular Volume 96.8 fl (80-100); Mean Platelet Volume 9.6 fl (7.4-10.4); Platelet Count Result 159 k/mm3 (150-375); Red Blood Count 5.27 M/mm3 (4.6-6.20); Red Cell Distribution Width 12.9 % (11.5-14.5); White Blood Count 6.7 K/mm3 (4.5-10.0)
--- NOTE | 2020-11-13 19:52 | ED.GENADULT ---
HPI - General Adult General Chief complaint: Alcohol Stated complaint: ETOH Time Seen by Provider: 11/13/20 19:18 History of Present Illness HPI narrative: Patient is a 70-year-old gentleman who presents the emergency department with chief complaint of alcohol withdrawal. Patient reports that he is a heavy drinker and drinks approximately a pint to 1/5 a day of alcohol. Patient states his last this morning and reports that now he feels as though he is in withdrawal. The patient reports that he is shaky and tremulous and feels as though his heart is beating extremely fast. Patient states this feels similar to whenever he has had withdrawal before in the past. The patient reports that he lives at a independent living facility and reports that he has had problems having a bowel movement for the last several days. The patient denies fall denies trauma. Related Data Home Medications Medication Instructions Recorded Confirmed buspirone 7.5 mg PO BID 08/20/19 11/10/19 folic acid 1 mg PO DAILY 08/20/19 11/10/19 naltrexone 50 mg PO DAILY 08/20/19 11/10/19 Xarelto 15 mg PO BID 11/10/19 11/10/19 gemfibrozil 600 mg PO DAILY 11/10/19 11/10/19 sertraline 100 mg PO DAILY 11/10/19 11/10/19 verapamil 240 mg PO DAILY 11/10/19 11/10/19 Allergies Allergy/AdvReac Type Severity Reaction Status Date / Time No Known Allergies Allergy Mild Verified 09/06/17 03:21 Review of Systems Review of Systems: Narrative: A 10 system review of systems was completed on the patient and is negative except for what is stated in the HPI. Nursing and ancillary documentation was reviewed. [facility]LY [facility] Past Medical History Medical History (Updated 11/13/20 @ 23:05 by Danilo Son MD) Alcoholism Anxiety Depression Deviated septum Esophageal varices GERD (gastroesophageal reflux disease) Hypercholesteremia Hypertension Nose fracture Surgical History Surgical History H/O hernia repair x2 History of appendectomy Family History Family History Father Alcoholism Congestive heart failure Mother Cancer Grandparent Diabetes mellitus Social History Social History Social History: he has no children. He is disabled. He stated that he drinks a 5th of vodka a day and is a lifelong nonsmoker Smoking status: Former smoker Alcohol intake: current Substance use: former Substance use type: former substance user, marijuana, heroin and other Other substance usage details: drinks 1/5 vodka daily Gender identity (if verbalized by the patient): Male Spiritual care concerns: No Agree to blood products: Yes Exam Narrative: Exam Narrative: GENERAL: Well-appearing, well-nourished, and in no acute distress. HEAD: Normocephalic, atraumatic. EYES: PERRLA and EOMI. ENT: Nares clear, no rhinorrhea or epistaxis. Mucous membranes moist. NECK: Supple. CHEST: Clear to auscultation. No respiratory distress. HEART: Tachycardic rate and rhythm. No murmur heard. Normal peripheral pulses. ABDOMEN: Soft, nontender, nondistended, normal active bowel sounds. EXTREMITIES: Normal range of motion. No edema. SKIN: Warm, dry, no rash. NEURO: No focal deficits. Alert and oriented x3. Patient is somewhat tremulous PSYCH: Normal mood and affect. Course Vital Signs Vital signs: Vital Signs Temperature 36.7 C 11/13/20 19:12 Pulse Rate 121 H 11/13/20 19:12 Respiratory Rate 15 11/13/20 19:12 Pulse Oximetry 99 11/13/20 19:12 Temperature 36.7 C 11/13/20 19:12 Pulse Rate 118 H 11/13/20 22:37 Respiratory Rate 16 11/13/20 22:37 Blood Pressure 123/67 11/13/20 22:37 Pulse Oximetry 95 11/13/20 22:37 Medical Decision Making Vital Signs Vital Signs: Vital Signs Temperature 36.7 C 11/13/20 19:12 Pulse Rate 121 H 11/13/20 19:12
[2020-11-13] MEDS: THIAMINE HCL 200 MG/2 ML VIAL 100 MG IV PUSH (20:03)
[2020-11-13] MEDS: SODIUM CHLORIDE 0.9% IV 1,000 ML 999 ML IV CONT ×3 (20:03→23:16)
[2020-11-13] MEDS: LORazepam INJ (*CRX) 2 MG/ML VIAL 1 MG IV PUSH (20:04)
[2020-11-13 20:05] LABS: Ethanol 276 mg/dL (<10)
[2020-11-13 20:08] LABS: Lactic Acid Reflex 8.3 mmol/L (0.7-2.1)
[2020-11-13 20:31] LABS: Alveolar/Arterial O2 Gradient 39.1 mmHg; Base Excess ABG -7.7 mEq/l (+/-2.0); Fractional Inspired Oxygen 21 %; HCO3 ABG 16.2 mEq/l (22.0-26.0); Oxygen Content ABG 21.2 %vol (16.0-22.0); Oxygen Saturation ABG 94.8 % (95.0-100.0); PCO2 ABG 29.4 mmHg (35.0-45.0); PO2 ABG 75.4 mmHg (80.0-100.0); PO2 FiO2 Ratio Arterial Blood 3.59 %; Total Hemoglobin 16.4 g/dL (12.0-18.0); pH ABG 7.358 (7.350-7.450)
[2020-11-13 20:32] LABS: Device ROOM AIR; Modified Allen's Test Pass; Site Drawn LEFT RADIAL
[2020-11-13 20:32] LABS: Total Cells Counted 100
[2020-11-13 20:37] LABS: Prothrombin Time 14.2 Seconds (11.1-14.7)
[2020-11-13 20:38] LABS: Partial Thromboplastin Time 26.7 SECONDS (22.3-36.8)
[2020-11-13 20:38] LABS: Neutrophils Percent Manual 88 % (46-73)
[2020-11-13 20:39] LABS: Lymphocytes Percent Manual 6 % (18-44); Monocytes Percent Manual 6 % (3-9); Platelet Estimate Adequate (Adequate)
[2020-11-13 20:41] LABS: Alanine Aminotransferase 34 U/L (4-50); Albumin Level 3.8 g/dL (3.5-5.1); Alkaline Phosphatase 81 U/L (38-126); Anion Gap 22 mmol/L (8-16); Aspartate Amino Transferase 143 U/L (17-59); Blood Urea Nitrogen 13 mg/dL (9-20); Calcium 8.2 mg/dL (8.4-10.2); Carbon Dioxide 18 mmol/L (22-30); Chloride 97 mmol/L (98-107); Estimated Glomerular Filt Rate > 60; Glucose 86 mg/dL (75-110); Lipase 99 U/L (23-300); Magnesium 1.7 mg/dL (1.6-2.3); Potassium 4.1 mmol/L (3.4-5.0); Sodium 137 mmol/L (137-145)
[2020-11-13 20:45] LABS: Beta-Hydroxybutyrate/Acetoacetate 3.64 mmol/L (0.02-0.27)
[2020-11-13 20:53] LABS: Troponin I < 0.012 ng/mL (0.000-0.034)
[2020-11-13 22:37] VITALS: BP 123/67; PULSE 118; RESP 16; O2SAT 95
[2020-11-13 22:47] LABS: Reflex Lactic Acid Yes or No Add Lactic
--- NOTE | 2020-11-13 23:35 | PM.IMHP ---
H&P: HPI History of Present Illness Date/Time: 05/26 23:35 Chief Complaint: TREMULOUSNESS Narrative: THIS IS A 70-YEAR-OLD MALE WITH PAST MEDICAL HISTORY SIGNIFICANT FOR ALCOHOL DEPENDENCE PATIENT DRINKS A 5TH OF VODKA DAILY PATIENT HAS DECIDED TO QUIT LAST TIME HE HAD A DRINK WAS IN THE MORNING HE HAD A 5TH OF VODKA HE DID NOT DRINK THE DAY BEFORE PATIENT NOTED THAT SINCE THE DAY BEFORE HE HAS BEEN HAVING TREMULOUSNESS AND FORMICATION NO LOSS OF CONSCIOUSNESS HAD SOME NAUSEA BUT NO VOMITING NO ABDOMEN NO ABDOMINAL PAIN HAS BEEN HAVING CONSTIPATION. NO COUGH NO SHORTNESS OF BREATH NO SPUTUM PRODUCTION NO LEG SWELLING NO CHEST PAIN PATIENT HAS BEEN HIS USUAL STATE OF HEALTH UP TO THIS TIME. PRELIMINARY WORKUP WAS SIGNIFICANT FOR ANION GAP ACIDOSIS AND ELEVATED ALCOHOL LEVEL. Review of Systems Review of Systems: Narrative: THE PATIENT PRESENTED TO THE EMERGENCY ROOM AFTER HE DECIDED HE WAS QUITTING DRINKING HE TOOK A 5TH OF VODKA TODAY AND HE WAS FEELING TREMULOUS BEEN SOME NAUSEA BUT NO VOMITING HAS NOT BEEN ABLE TO EAT EITHER AND HAS BEEN CONSTIPATED Constitutional: Constitutional: Reports fatigue, Reports lethargy and Reports weakness Comments: NO RIGORS NO CHILLS NO FEVERS Eyes: Eyes: Denies blind spots, Denies blurry vision, Denies diplopia and Denies loss of vision ENT: Denies dizziness, Denies nasal congestion and Denies nasal discharge Cardiovascular: Cardiovascular: Denies chest pain at rest, Denies chest pain with activity, Denies claudication, Denies leg edema and Denies lightheadedness Respiratory: Respiratory: Denies chest congestion, Denies cough, Denies dyspnea on exertion and Denies wheezing Gastrointestinal: Gastrointestinal: Reports constipation, Denies dysphagia and Denies vomiting Musculoskeletal: Musculoskeletal: Denies back pain, Denies arthralgias, Denies joint swelling, Denies muscle cramps and Denies muscle weakness Integumentary/Breasts: Skin/Breast: Denies swelling and Denies rash Neurologic: Reports tremor(s) Psychiatric: Psychiatric: Denies visual hallucinations, Reports hallucinations and Denies tactile hallucinations Comments: FORMICATION Endocrine: Endocrine: Denies cold intolerance and Denies heat intolerance Hematologic/Lymphatic: Hematologic/Lymphatic: Denies no additional hematologic/lymphatic complaints Allergic/Immunologic: Allergic/Immunologic: Denies tongue swelling and Denies wheezing PMFSH Past Medical History Medical History (Updated 11/13/20 @ 23:05 by Danilo Son MD) Alcoholism Anxiety Depression Deviated septum Esophageal varices GERD (gastroesophageal reflux disease) Hypercholesteremia Hypertension Nose fracture Surgical History Surgical History H/O hernia repair x2 History of appendectomy Family History Family History Father Alcoholism Congestive heart failure Mother Cancer Grandparent Diabetes mellitus Social History Social History Social History: he has no children. He is disabled. He stated that he drinks a 5th of vodka a day and is a lifelong nonsmoker Smoking status: Former smoker Alcohol intake: current Substance use: former Substance use type: former substance user, marijuana, heroin and other Other substance usage details: drinks 1/5 vodka daily Gender identity (if verbalized by the patient): Male Spiritual care concerns: No Agree to blood products: Yes Meds Home Medications and Allergies Home Medications Medication Instructions Recorded Confirmed Type buspirone 7.5 mg PO BID 08/20/19 11/10/19 History folic acid 1 mg PO DAILY 08/20/19 11/10/19 History naltrexone 50 mg PO DAILY 08/20/19 11/10/19 History metoprolol succinate 50 mg PO DAILY #30 tablet 08/24/19 11/10/19 Rx Xarelto 15 mg PO BID 11/10/19 11/10/19 History ge
[2020-11-13 23:46] LABS: Lactic Acid 6.6 mmol/L (0.7-2.1)
[2020-11-14] VITALS (20 sets, daily range): BP systolic 121–153; BP diastolic 76–97; PULSE 82–117; RESP 18–22; TEMP 36.1–36.7; O2SAT 92–100; BMI 28.3
--- NOTE | 2020-11-14 01:02 | ADMGEN ---
This patient, Toro Zeng, was admitted to IMU Room 202-01. Patient/family oriented to hospital policies and general routines including ID bracelet, bed and alarms, visiting hours, pain management, procedures, bathroom and other care routines, personal items, smoking policy, room service/diet, and visiting hours. Information on how to activate the Rapid Response Team has been discussed. Patient/Family are encouraged to report perceived risks to care and to ask questions if they do not understand what they are told or what they should do.
[2020-11-14] MEDS: THIAMINE HCL INJ 100 MG, FOLIC ACID INJ 1 MG, MULTIVITAMINS-12 INJ VIAL 1 5 ML, MULTIVI... IV CONT (01:16)
[2020-11-14] MEDS: LORazepam INJ (*CRX) 2 MG/ML VIAL 1 MG IV PUSH ×8 (01:17→23:14)
[2020-11-14] MEDS: chlordiazePOXIDE (*CRX) 25 MG CAPSULE 50 MG PO ×5 (01:17→23:13)
[2020-11-14 06:58] LABS: Alanine Aminotransferase 30 U/L (4-50); Alkaline Phosphatase 65 U/L (38-126); Anion Gap 12 mmol/L (8-16); Aspartate Amino Transferase 126 U/L (17-59); Blood Urea Nitrogen 7 mg/dL (9-20); Calcium 7.2 mg/dL (8.4-10.2); Carbon Dioxide 21 mmol/L (22-30); Chloride 103 mmol/L (98-107); Estimated CRCL calculation 115 ml/min; Estimated Glomerular Filt Rate > 60; Glucose 93 mg/dL (75-110); Potassium 3.6 mmol/L (3.4-5.0); Sodium 136 mmol/L (137-145)
[2020-11-14] MEDS: THIAMINE HCL 200 MG/2 ML VIAL 100 MG IV PUSH (08:35)
--- NOTE | 2020-11-14 11:04 | PM.IMPN ---
Progress Note: A&P Assessment and Plan (1) Alcoholic ketoacidosis: Code(s): E87.2 - Acidosis Status: Acute Assessment and Plan: Lactic acid was above 6 secondary to alcohol abuse Treated conservatively with IV fluid Continue IV fluid vitamin replacement R (2) Alcohol abuse: Code(s): F10.10 - Alcohol abuse, uncomplicated Status: Chronic Assessment and Plan: [facility] PROTOCOL counseling (3) Alcohol withdrawal: Qualifiers: Complication of substance-induced condition: with unspecified complication Qualified Code(s): F10.239 - Alcohol dependence with withdrawal, unspecified Code(s): F10.239 - Alcohol dependence with withdrawal, unspecified Status: Resolved Assessment and Plan: [facility] PROTOCOL (4) GERD (gastroesophageal reflux disease): Qualifiers: Esophagitis presence: esophagitis presence not specified Qualified Code(s): K21.9 - Gastro-esophageal reflux disease without esophagitis Code(s): K21.9 - Gastro-esophageal reflux disease without esophagitis Status: Chronic Assessment and Plan: Continue PPI (5) Constipation: Code(s): K59.00 - Constipation, unspecified Status: Acute Assessment and Plan: Give laxative (6) Alcohol intoxication: Qualifiers: Complication of substance-induced condition: uncomplicated Qualified Code(s): F10.920 - Alcohol use, unspecified with intoxication, uncomplicated Code(s): F10.929 - Alcohol use, unspecified with intoxication, unspecified Status: Acute Assessment and Plan: Counselining alcohol withdrawal protocol Subjective Date/time seen: 11/14/20 11:04 Interval history: Patient seen and examined 70 years old male with past medical history of chronic alcoholism presented to the hospital with shakiness patient also has a fall few days before admission did not hit his head according to him patient was tremulous and shaky and the ER was found to have blood alcohol level more than 200 also was found to have severe metabolic acidosis secondary to lactic acidosis was treated with IV fluid CT scan of the abdomen showed probable fatty liver chest x-ray shows probable goiter causing mild compression on the left side of the trachea patient was not in acute respiratory distress Patient feels anxious Patient denies fever headache chest pain shortness of breath I am seeing the patient for alcohol withdrawal Exam Narrative: Exam Narrative: Alert looks anxious have tremors Chest no wheeze crackles Abdomen nontender nondistended CVS S1 + S2 Lower extremity edema Objective Data Vital Signs Vital Signs: Vital Signs - 24 hr 11/13/20 19:12 11/13/20 22:37 11/14/20 00:40 Temperature 98.0 F 97.7 F Pulse Rate 121 H 118 H 117 H Pulse Rate [Monitor] Respiratory Rate 15 16 20 Blood Pressure 123/67 153/89 H Pulse Oximetry 99 95 99 11/14/20 02:00 11/14/20 04:00 11/14/20 06:00 Temperature 98.0 F Pulse Rate 114 H 112 H 108 H Pulse Rate [Monitor] Respiratory Rate 20 Blood Pressure 138/76 Pulse Oximetry 100 11/14/20 08:00 11/14/20 08:49 11/14/20 10:00 Temperature 97.3 F L Pulse Rate 101 H 96 Pulse Rate [Monitor] 103 H Respiratory Rate 18 Blood Pressure 136/82 Pulse Oximetry 97 92 Intake/Output Intake/Output: Intake & Output 11/11/20 11/12/20 11/13/20 11/14/20 23:59 23:59 23:59 23:59 Intake Total 1999 1300 Balance 1999 1300 Meds/Results Medications: Active Medications Generic Name Dose Route Start Last Admin Trade Name Freq PRN Reason Stop Dose Admin Chlordiazepoxide HCl 50 mg 11/14/20 06:00 11/14/20 05:47 Chlordiazepoxide (*Crx) 25 Mg Capsule PO 50 mg Q6HR ALBINO Administration Dextrose/Sodium Chloride 1,000 mls @ 125 mls/hr 11/13/20 23:00 Dextrose 5% Sodium Chloride 0.45% IV CONT .Q8H ALBINO Lorazepam 1 mg 11/14/20 00:57 11/14/20 08:37 Lorazepam Inj (*Crx) 2 Mg/Ml Vial IV PUS
[2020-11-14] MEDS: DEXTROSE 5%/0.45% SOD CHL 1,000 ML 125 ML IV CONT ×2 (11:21→17:24)
[2020-11-14 11:57] LABS: Basophils Percent Auto 0.5 % (0.2-1.2); Eosinophils Percent Auto 0.7 % (0-4.4); Hematocrit 41.2 % (42.0-52.0); Hemoglobin 14.2 g/dL (14.0-18.0); Immature Granulocyte Absolute 0.01 K/mm3 (0.00-0.031); Immature Granulocyte Percent A 0.2 % (0-0.5); Immature Platelet Fraction Pct 3.9 % (0.9-11.2); Lymphocytes Absolute Auto 1.07 K/mm3 (0.9-3.2); Lymphocytes Percent Auto 25.4 % (18.3-44.2); Mean Corpuscular HGB Conc 34.5 g/dl (32-36); Mean Corpuscular Hemoglobin 33.5 pg (26-34); Mean Corpuscular Volume 97.2 fl (80-100); Mean Platelet Volume 10.1 fl (7.4-10.4); Monocytes Absolute Auto 0.7 K/mm3 (0.1-0.6); Monocytes Percent Auto 15.4 % (2.6-8.5); Neutrophils Absolute Auto 2.4 K/mm3 (1.3-6.7); Neutrophils Percent Auto 57.8 % (45.5-73.1); Platelet Count Result 109 k/mm3 (150-375); Red Blood Count 4.24 M/mm3 (4.6-6.20); Red Cell Distribution Width 12.9 % (11.5-14.5); White Blood Count 4.2 K/mm3 (4.5-10.0)
[2020-11-14 12:02] LABS: Lactic Acid Reflex 1.3 mmol/L (0.7-2.1)
[2020-11-14] MEDS: ACETAMINOPHEN 500 MG TABLET 1000 MG PO (21:49)
[2020-11-15] VITALS (15 sets, daily range): BP systolic 125–145; BP diastolic 77–92; PULSE 94–135; RESP 16–20; TEMP 36.4–36.8; O2SAT 96–98
[2020-11-15] MEDS: DEXTROSE 5%/0.45% SOD CHL 1,000 ML 125 ML IV CONT (01:31)
[2020-11-15] MEDS: LORazepam INJ (*CRX) 2 MG/ML VIAL 1 MG IV PUSH ×3 (03:19→10:12)
[2020-11-15] MEDS: chlordiazePOXIDE (*CRX) 25 MG CAPSULE 50 MG PO ×4 (05:51→23:17)
[2020-11-15] MEDS: THIAMINE HCL 200 MG/2 ML VIAL 100 MG IV PUSH (09:26)
[2020-11-15 10:56] LABS: Basophils Percent Auto 0.5 % (0.2-1.2); Eosinophils Percent Auto 0.4 % (0-4.4); Hematocrit 41.9 % (42.0-52.0); Hemoglobin 14.7 g/dL (14.0-18.0); Immature Granulocyte Absolute 0.03 K/mm3 (0.00-0.031); Immature Granulocyte Percent A 0.5 % (0-0.5); Immature Platelet Fraction Pct 5.1 % (0.9-11.2); Lymphocytes Absolute Auto 0.83 K/mm3 (0.9-3.2); Lymphocytes Percent Auto 14.8 % (18.3-44.2); Mean Corpuscular HGB Conc 35.1 g/dl (32-36); Mean Corpuscular Hemoglobin 32.8 pg (26-34); Mean Corpuscular Volume 93.5 fl (80-100); Mean Platelet Volume 9.8 fl (7.4-10.4); Monocytes Absolute Auto 0.6 K/mm3 (0.1-0.6); Monocytes Percent Auto 11.2 % (2.6-8.5); Neutrophils Absolute Auto 4.1 K/mm3 (1.3-6.7); Neutrophils Percent Auto 72.6 % (45.5-73.1); Platelet Count Result 85 k/mm3 (150-375); Red Blood Count 4.48 M/mm3 (4.6-6.20); Red Cell Distribution Width 12.3 % (11.5-14.5); White Blood Count 5.6 K/mm3 (4.5-10.0)
--- NOTE | 2020-11-15 11:11 | PM.IMPN ---
Progress Note: A&P Assessment and Plan (1) Alcoholic ketoacidosis: Code(s): E87.2 - Acidosis Status: Acute Assessment and Plan: Lactic acid was above 6 secondary to alcohol abuse Treated conservatively with IV fluid resolved DC IV fluid Continue IV fluid vitamin replacement (2) Alcohol abuse: Code(s): F10.10 - Alcohol abuse, uncomplicated Status: Chronic Assessment and Plan: [facility] PROTOCOL counseling (3) Alcohol withdrawal: Qualifiers: Complication of substance-induced condition: with unspecified complication Qualified Code(s): F10.239 - Alcohol dependence with withdrawal, unspecified Code(s): F10.239 - Alcohol dependence with withdrawal, unspecified Status: Resolved Assessment and Plan: [facility] PROTOCOL worse today (4) GERD (gastroesophageal reflux disease): Qualifiers: Esophagitis presence: esophagitis presence not specified Qualified Code(s): K21.9 - Gastro-esophageal reflux disease without esophagitis Code(s): K21.9 - Gastro-esophageal reflux disease without esophagitis Status: Chronic Assessment and Plan: Continue PPI (5) Constipation: Code(s): K59.00 - Constipation, unspecified Status: Acute Assessment and Plan: Give laxative (6) Alcohol intoxication: Qualifiers: Complication of substance-induced condition: uncomplicated Qualified Code(s): F10.920 - Alcohol use, unspecified with intoxication, uncomplicated Code(s): F10.929 - Alcohol use, unspecified with intoxication, unspecified Status: Acute Assessment and Plan: Counselining alcohol withdrawal protocol (7) Sinus tachycardia: Code(s): R00.0 - Tachycardia, unspecified Status: Acute Assessment and Plan: Most likely related to alcohol withdrawal continue to monitor added metoprolol continue with [facility] protocol (8) Left shoulder pain: Code(s): M25.512 - Pain in left shoulder Status: Acute Assessment and Plan: Most likely related to fall started lidocaine p.r.n. [place] also would add left shoulder x-ray Subjective Date/time seen: 11/15/20 11:11 Interval history: Patient seen and examined 70 years old male with past medical history of chronic alcoholism presented to the hospital with shakiness patient also has a fall few days before admission did not hit his head according to him patient was tremulous and shaky and the ER was found to have blood alcohol level more than 200 also was found to have severe metabolic acidosis secondary to lactic acidosis was treated with IV fluid CT scan of the abdomen showed probable fatty liver chest x-ray shows probable goiter causing mild compression on the left side of the trachea patient was not in acute respiratory distress Patient feels anxious Patient is having tachycardia today and withdrawal symptoms Patient complains of generalized pain Also he has left shoulder pain worse with movement patient had fall before admission Patient denies fever headache chest pain shortness of breath I am seeing the patient for alcohol withdrawal Exam Narrative: Exam Narrative: Alert looks anxious have tremors Chest no wheeze crackles Abdomen nontender nondistended CVS S1 + S2 Lower extremity edema Objective Data Vital Signs Vital Signs: Vital Signs - 24 hr 11/14/20 11:22 11/14/20 11:59 11/14/20 12:00 Temperature 97.4 F L Pulse Rate 102 H 97 Pulse Rate [Monitor] 99 Respiratory Rate 22 H Blood Pressure 149/93 H Pulse Oximetry 97 11/14/20 14:00 11/14/20 14:15 11/14/20 16:00 Temperature 96.9 F L Pulse Rate 101 H 107 H Pulse Rate [Monitor] 101 H 98 Respiratory Rate 18 Blood Pressure 121/78 Pulse Oximetry 97 11/14/20 17:55 11/14/20 19:35 11/14/20 20:00 Temperature 97.7 F Pulse Rate 98 110 H 106 H Pulse Rate [Monitor] 106 H Respiratory Rate 20 20 Blood Pressure 147/97 H 147/97 H Pulse Oximetry 96 96 05
[2020-11-15] MEDS: METOPROLOL TARTRATE 25 MG TABLET PO ×2 (11:51→20:48)
[2020-11-15] MEDS: LIDOCAINE 5% PATCH 1 PATCH TRANSDERM (11:52)
[2020-11-15] MEDS: HYDROcodone/acetaminophen (*CRX) 5-325 MG TABLET 1 TAB PO ×2 (11:52→20:47)
[2020-11-15 14:17] LABS: Free T4 Free Thyroxine Reflex 1.58 ng/dL (0.78-2.19)
[2020-11-15 15:12] LABS: Total Triiodothyronine (T3) 1.27 NG/ML (0.97-1.69)
[2020-11-15 17:08] LABS: Ammonia < 9 umol/L (9-30)
[2020-11-16] VITALS (15 sets, daily range): BP systolic 126–156; BP diastolic 69–94; PULSE 60–101; RESP 16–22; TEMP 36.2–37.2; O2SAT 93–97
[2020-11-16] MEDS: HYDROcodone/acetaminophen (*CRX) 5-325 MG TABLET 1 TAB PO ×2 (03:18→22:26)
[2020-11-16] MEDS: chlordiazePOXIDE (*CRX) 25 MG CAPSULE 50 MG PO ×4 (05:38→23:46)
[2020-11-16] MEDS: METOPROLOL TARTRATE 25 MG TABLET PO ×2 (08:34→19:52)
[2020-11-16] MEDS: THIAMINE HCL 200 MG/2 ML VIAL 100 MG IV PUSH (08:34)
[2020-11-16] MEDS: LIDOCAINE 5% PATCH 1 PATCH TRANSDERM (08:35)
[2020-11-16 12:07] LABS: Basophils Percent Auto 0.6 % (0.2-1.2); Eosinophils Absolute Auto 0.2 K/mm3 (0-0.3); Eosinophils Percent Auto 3.2 % (0-4.4); Hematocrit 43.8 % (42.0-52.0); Hemoglobin 15.3 g/dL (14.0-18.0); Immature Granulocyte Absolute 0.05 K/mm3 (0.00-0.031); Immature Granulocyte Percent A 0.7 % (0-0.5); Immature Platelet Fraction Pct 6.6 % (0.9-11.2); Lymphocytes Absolute Auto 0.63 K/mm3 (0.9-3.2); Lymphocytes Percent Auto 8.8 % (18.3-44.2); Mean Corpuscular HGB Conc 34.9 g/dl (32-36); Mean Corpuscular Hemoglobin 33.8 pg (26-34); Mean Corpuscular Volume 96.7 fl (80-100); Mean Platelet Volume 10.5 fl (7.4-10.4); Monocytes Absolute Auto 0.2 K/mm3 (0.1-0.6); Monocytes Percent Auto 2.8 % (2.6-8.5); Neutrophils Absolute Auto 6.1 K/mm3 (1.3-6.7); Neutrophils Percent Auto 83.9 % (45.5-73.1); Platelet Count Result 101 k/mm3 (150-375); Red Blood Count 4.53 M/mm3 (4.6-6.20); Red Cell Distribution Width 12.5 % (11.5-14.5); White Blood Count 7.2 K/mm3 (4.5-10.0)
--- NOTE | 2020-11-16 15:43 | PM.IMPN ---
Progress Note: A&P Assessment and Plan (1) Alcoholic ketoacidosis: Code(s): E87.2 - Acidosis Status: Acute Assessment and Plan: Pt encouraged to drink water (2) Alcohol abuse: Code(s): F10.10 - Alcohol abuse, uncomplicated Status: Chronic Assessment and Plan: [facility] PROTOCOL counseling (3) Alcohol withdrawal: Qualifiers: Complication of substance-induced condition: with unspecified complication Qualified Code(s): F10.239 - Alcohol dependence with withdrawal, unspecified Code(s): F10.239 - Alcohol dependence with withdrawal, unspecified Status: Resolved Assessment and Plan: [facility] PROTOCOL (4) GERD (gastroesophageal reflux disease): Qualifiers: Esophagitis presence: esophagitis presence not specified Qualified Code(s): K21.9 - Gastro-esophageal reflux disease without esophagitis Code(s): K21.9 - Gastro-esophageal reflux disease without esophagitis Status: Chronic Assessment and Plan: Continue PPI (5) Constipation: Code(s): K59.00 - Constipation, unspecified Status: Acute Assessment and Plan: Give laxative (6) Alcohol intoxication: Qualifiers: Complication of substance-induced condition: uncomplicated Qualified Code(s): F10.920 - Alcohol use, unspecified with intoxication, uncomplicated Code(s): F10.929 - Alcohol use, unspecified with intoxication, unspecified Status: Acute Assessment and Plan: Counselining alcohol withdrawal protocol (7) Sinus tachycardia: Code(s): R00.0 - Tachycardia, unspecified Status: Acute Assessment and Plan: Most likely related to alcohol withdrawal continue to monitor added metoprolol continue with [facility] protocol (8) Left shoulder pain: Code(s): M25.512 - Pain in left shoulder Status: Acute Assessment and Plan: Most likely related to fall started lidocaine p.r.n. [place]. Mild left glenohumeral and acromioclavicular osteoarthritis. Subjective Date/time seen: 11/16/20 15:43 Interval history: Interval history 70 years old male with past medical history of chronic alcoholism presented to the hospital with shakiness patient also has a fall few days before admission did not hit his head according to him patient was tremulous and shaky and the ER was found to have blood alcohol level more than 200 also was found to have severe metabolic acidosis secondary to lactic acidosis was treated with IV fluid CT scan of the abdomen showed probable fatty liver chest x-ray shows probable goiter causing mild compression on the left side of the trachea patient was not in acute respiratory distress. Pt awaiting placement, chronic alcoholic. Review of Systems Review of Systems: All systems reviewed & are unremarkable except as noted in HPI and below Exam Narrative: Exam Narrative: Chronically ill appearing clammy sweaty Chest clear lung brian Abdomen nontender nondistended CVS S1 + S2 Lower extremity edema Objective Data Vital Signs Vital Signs: Vital Signs - 24 hr 11/15/20 16:00 11/15/20 18:00 11/15/20 20:00 Temperature 36.8 C 36.6 C Pulse Rate 99 102 H 97 Pulse Rate [Monitor] 97 Respiratory Rate 16 20 Blood Pressure 125/77 134/86 Pulse Oximetry 98 97 11/15/20 20:48 11/15/20 22:00 11/16/20 00:00 Temperature 36.2 C L Pulse Rate 98 94 93 Pulse Rate [Monitor] 85 Respiratory Rate 20 Blood Pressure 131/89 Pulse Oximetry 97 11/16/20 02:00 11/16/20 03:37 11/16/20 05:40 Temperature 36.2 C L Pulse Rate 96 88 60 Pulse Rate [Monitor] 88 Respiratory Rate 20 Blood Pressure 141/91 H Pulse Oximetry 95 11/16/20 08:00 11/16/20 08:34 11/16/20 10:00 Temperature 36.3 C L Pulse Rate 90 87 85 Pulse Rate [Monitor] Respiratory Rate 18 Blood Pressure 126/69 Pulse Oximetry 97 11/16/20 12:00 11/16/20 14:00 11/16/20 15:40 Temperature 36.7 C 37.2 C Pulse Rate 9
--- NOTE | 2020-11-16 17:49 | PC.NURSE ---
Transfer patient received from IMU. Report received from KARL Fernández.
--- NOTE | 2020-11-16 17:51 | PC.NURSE ---
This patient, Toro Zeng, was transferred to [facility] on 11/16/20 at 1745. Personal belongings sent with patient. Report given to KARL Rivas. Appropriate documentation sent with patient.
[2020-11-16 19:36] LABS: SARS-CoV-2 RNA PCR Negative
[2020-11-17 04:35] VITALS: BP 142/83; PULSE 93; RESP 18; TEMP 36.4; O2SAT 97
[2020-11-17] MEDS: chlordiazePOXIDE (*CRX) 25 MG CAPSULE 50 MG PO ×3 (05:12→17:52)
[2020-11-17 06:30] LABS: Hematocrit 42.3 % (42.0-52.0); Hemoglobin 14.8 g/dL (14.0-18.0); Immature Platelet Fraction Pct 5.6 % (0.9-11.2); Mean Corpuscular Hemoglobin 34.1 pg (26-34); Mean Corpuscular Volume 97.5 fl (80-100); Mean Platelet Volume 11.1 fl (7.4-10.4); Platelet Count Result 76 k/mm3 (150-375); Red Blood Count 4.34 M/mm3 (4.6-6.20); Red Cell Distribution Width 12.5 % (11.5-14.5); White Blood Count 6.4 K/mm3 (4.5-10.0)
[2020-11-17 06:45] LABS: Anion Gap 3 mmol/L (8-16); Blood Urea Nitrogen 4 mg/dL (9-20); Calcium 7.8 mg/dL (8.4-10.2); Carbon Dioxide 29 mmol/L (22-30); Chloride 98 mmol/L (98-107); Estimated CRCL calculation 115 ml/min; Estimated Glomerular Filt Rate > 60; Glucose 84 mg/dL (75-110); Potassium 2.8 mmol/L (3.4-5.0); Sodium 130 mmol/L (137-145)
[2020-11-17 08:00] VITALS: BP 130/78; PULSE 94; RESP 18; TEMP 36.1; O2SAT 96
[2020-11-17] MEDS: THIAMINE HCL 200 MG/2 ML VIAL 100 MG IV PUSH (08:12)
[2020-11-17] MEDS: POTASSIUM CHLORIDE 20 MEQ TABLET 80 MEQ PO (08:12)
[2020-11-17] MEDS: METOPROLOL TARTRATE 25 MG TABLET PO ×2 (08:13→20:00)
[2020-11-17 11:13] LABS: Basophils Percent Auto 0.4 % (0.2-1.2); Eosinophils Absolute Auto 0.1 K/mm3 (0-0.3); Eosinophils Percent Auto 0.9 % (0-4.4); Hematocrit 42.6 % (42.0-52.0); Hemoglobin 14.7 g/dL (14.0-18.0); Immature Granulocyte Absolute 0.05 K/mm3 (0.00-0.031); Immature Granulocyte Percent A 0.9 % (0-0.5); Immature Platelet Fraction Pct 6.3 % (0.9-11.2); Lymphocytes Absolute Auto 0.53 K/mm3 (0.9-3.2); Lymphocytes Percent Auto 9.8 % (18.3-44.2); Mean Corpuscular HGB Conc 34.5 g/dl (32-36); Mean Corpuscular Hemoglobin 33.2 pg (26-34); Mean Corpuscular Volume 96.2 fl (80-100); Mean Platelet Volume 10.8 fl (7.4-10.4); Monocytes Absolute Auto 0.8 K/mm3 (0.1-0.6); Platelet Count Result 93 k/mm3 (150-375); Red Blood Count 4.43 M/mm3 (4.6-6.20); Red Cell Distribution Width 12.7 % (11.5-14.5); White Blood Count 5.4 K/mm3 (4.5-10.0)
[2020-11-17] MEDS: MAGNESIUM OXIDE 400 MG TABLET PO (12:14)
[2020-11-17] MEDS: POTASSIUM CHLORIDE 20 MEQ TABLET 40 MEQ PO ×2 (12:17→17:52)
--- NOTE | 2020-11-17 13:57 | PM.IMPN ---
Progress Note: A&P Assessment and Plan (1) Hypokalemia: Code(s): E87.6 - Hypokalemia Status: Chronic Assessment and Plan: Likely due to chronic alcohol abuse and IV fluids P.o. potassium supplementation Follow-up basic metabolic panel and magnesium (2) Alcohol withdrawal: Qualifiers: Complication of substance-induced condition: with unspecified complication Qualified Code(s): F10.239 - Alcohol dependence with withdrawal, unspecified Code(s): F10.239 - Alcohol dependence with withdrawal, unspecified Status: Resolved Assessment and Plan: Acute phase has resolved [facility] PROTOCOL (3) Phlebitis after infusion: Qualifiers: Encounter type: initial encounter Qualified Code(s): T80.1XXA - Vascular complications following infusion, transfusion and therapeutic injection, initial encounter; I80.9 - Phlebitis and thrombophlebitis of unspecified site Code(s): T80.1XXA - Vascular complications following infusion, transfusion and therapeutic injection, initial encounter; I80.9 - Phlebitis and thrombophlebitis of unspecified site Status: Acute Assessment and Plan: Apply heat and monitor (4) Alcohol abuse: Code(s): F10.10 - Alcohol abuse, uncomplicated Status: Chronic Assessment and Plan: [facility] PROTOCOL Discussed need for rehab (5) GERD (gastroesophageal reflux disease): Qualifiers: Esophagitis presence: esophagitis presence not specified Qualified Code(s): K21.9 - Gastro-esophageal reflux disease without esophagitis Code(s): K21.9 - Gastro-esophageal reflux disease without esophagitis Status: Chronic Assessment and Plan: Continue PPI (6) Left shoulder pain: Qualifiers: Chronicity: acute Qualified Code(s): M25.512 - Pain in left shoulder Code(s): M25.512 - Pain in left shoulder Status: Acute Assessment and Plan: Most likely due to fall P.r.n. acetaminophen Avoid narcotics (7) Alcoholic ketoacidosis: Code(s): E87.2 - Acidosis Status: Acute Assessment and Plan: Resolved Subjective Date/time seen: 11/17/20 13:57 Interval history: ADMITTED WITH ALCOHOLIC KETOACIDOSIS. 11/17. Complains weak and tired. Mild discomfort right antecubital fossa. Poor appetite. Review of Systems Review of Systems: All systems reviewed & are unremarkable except as noted in HPI and below Exam Narrative: Exam Narrative: HEENT: PERRL, sclerae nonicteric, pharyngeal mucosa pink and intact NECK: No JVD, adenopathy, or thyromegaly CHEST: Clear to auscultation. Normal effort. HEART: NL S1/S2, regular, no murmur ABDOMEN: BS+, soft, nontender, no mass, no bruits EXTREMITIES: No cyanosis, edema, or clubbing NEUROLOGIC: CN intact and symmetric to inspection. MUSCULOSKELETAL: Tone and strength symmetric. PSYCH: Alert. Oriented to person, place, and time. SKIN: About 1 cm erythematous papule without fluctuance in right antecubital fossa what appears to be the site of previous IV Objective Data Vital Signs Vital Signs: Vital Signs - 24 hr 11/16/20 14:00 11/16/20 15:40 11/16/20 18:32 Temperature 98.9 F 97.8 F Pulse Rate 99 101 H 98 Respiratory Rate 18 22 H Blood Pressure 132/79 146/80 H Pulse Oximetry 94 97 11/16/20 19:51 11/16/20 19:52 11/16/20 23:46 Temperature 97.4 F L 97.9 F Pulse Rate 101 H 101 H 91 Respiratory Rate 16 16 Blood Pressure 143/91 H 129/80 Pulse Oximetry 97 93 11/16/20 23:50 11/17/20 04:35 11/17/20 08:00 Temperature 97.6 F 97.0 F L Pulse Rate 93 94 Respiratory Rate 18 18 Blood Pressure 142/83 H 130/78 Pulse Oximetry 96 97 96 Intake/Output Intake/Output: Intake & Output 11/14/20 11/15/20 11/16/20 11/17/20 23:59 23:59 23:59 23:59 Intake Total 3313.2 3600 1590 540 Output Total 2 2 Balance 3313.2 3598 1590 538 Meds/Results Medications: Active Medications Generic Name Dose Route Start Last Admin Trade
[2020-11-17 14:25] VITALS: BP 121/78; PULSE 82; RESP 16; TEMP 36.6; O2SAT 96
[2020-11-17 18:06] VITALS: BP 104/70; PULSE 80; RESP 18; TEMP 36.7; O2SAT 96
[2020-11-17 18:24] LABS: Anion Gap 2 mmol/L (8-16); Blood Urea Nitrogen 8 mg/dL (9-20); Calcium 8.7 mg/dL (8.4-10.2); Carbon Dioxide 28 mmol/L (22-30); Chloride 104 mmol/L (98-107); Estimated CRCL calculation 115 ml/min; Estimated Glomerular Filt Rate > 60; Glucose 111 mg/dL (75-110); Magnesium 1.8 mg/dL (1.6-2.3); Potassium 3.6 mmol/L (3.4-5.0); Sodium 134 mmol/L (137-145)
[2020-11-17 19:56] VITALS: BP 132/85; PULSE 76; RESP 16; TEMP 35.9; O2SAT 98
[2020-11-17 20:00] VITALS: PULSE 79
[2020-11-17] MEDS: ACETAMINOPHEN 500 MG TABLET 1000 MG PO (20:02)
[2020-11-18] MEDS: chlordiazePOXIDE (*CRX) 25 MG CAPSULE 50 MG PO ×4 (00:24→20:13)
[2020-11-18] MEDS: ACETAMINOPHEN 500 MG TABLET 1000 MG PO ×2 (02:02→06:28)
[2020-11-18 06:50] VITALS: BP 114/69; PULSE 71; RESP 18; TEMP 36.1; O2SAT 97
[2020-11-18] MEDS: THIAMINE HCL 200 MG/2 ML VIAL 100 MG IV PUSH (08:38)
[2020-11-18 08:40] VITALS: PULSE 75
[2020-11-18] MEDS: METOPROLOL TARTRATE 25 MG TABLET PO ×2 (08:40→20:12)
[2020-11-18 12:00] VITALS: BP 112/76; PULSE 79; RESP 18; TEMP 35.9; O2SAT 99
--- NOTE | 2020-11-18 13:54 | PM.IMPN ---
Progress Note: A&P Assessment and Plan (1) Abdominal pain: Qualifiers: Abdominal location: epigastric Qualified Code(s): R10.13 - Epigastric pain Code(s): R10.9 - Unspecified abdominal pain Status: Acute Assessment and Plan: Suspect due to alcohol induced gastritis, pancreatitis less likely PPI added (2) Hypokalemia: Code(s): E87.6 - Hypokalemia Status: Chronic Assessment and Plan: Likely due to chronic alcohol abuse and IV fluids P.o. potassium supplementation Follow-up basic metabolic panel and magnesium (3) Alcohol withdrawal: Qualifiers: Complication of substance-induced condition: with unspecified complication Qualified Code(s): F10.239 - Alcohol dependence with withdrawal, unspecified Code(s): F10.239 - Alcohol dependence with withdrawal, unspecified Status: Resolved Assessment and Plan: Acute phase has resolved [facility] protocol Wean Librium (4) Phlebitis after infusion: Qualifiers: Encounter type: initial encounter Qualified Code(s): T80.1XXA - Vascular complications following infusion, transfusion and therapeutic injection, initial encounter; I80.9 - Phlebitis and thrombophlebitis of unspecified site Code(s): T80.1XXA - Vascular complications following infusion, transfusion and therapeutic injection, initial encounter; I80.9 - Phlebitis and thrombophlebitis of unspecified site Status: Acute Assessment and Plan: Ostensibly improving Apply heat and monitor (5) Alcohol abuse: Code(s): F10.10 - Alcohol abuse, uncomplicated Status: Chronic Assessment and Plan: [facility] PROTOCOL Discussed need for rehab (6) GERD (gastroesophageal reflux disease): Qualifiers: Esophagitis presence: esophagitis presence not specified Qualified Code(s): K21.9 - Gastro-esophageal reflux disease without esophagitis Code(s): K21.9 - Gastro-esophageal reflux disease without esophagitis Status: Chronic Assessment and Plan: Continue PPI (7) Left shoulder pain: Qualifiers: Chronicity: acute Qualified Code(s): M25.512 - Pain in left shoulder Code(s): M25.512 - Pain in left shoulder Status: Acute Assessment and Plan: Most likely due to fall P.r.n. acetaminophen Avoid narcotics (8) Alcoholic ketoacidosis: Code(s): E87.2 - Acidosis Status: Acute Assessment and Plan: Resolved Subjective Date/time seen: 11/18/20 13:54 Interval history: 11/18: Tired. Ate better today. C/o mild discomfort across upper abdomen. Review of Systems Review of Systems: All systems reviewed & are unremarkable except as noted in HPI and below Exam Narrative: Exam Narrative: HEENT: PERRL, sclerae nonicteric, pharyngeal mucosa pink and intact NECK: No JVD CHEST: Clear to auscultation. Normal effort. HEART: NL S1/S2, regular, no murmur ABDOMEN: BS+, soft, nontender, no mass, no bruits EXTREMITIES: No cyanosis, edema, or clubbing NEUROLOGIC: CN intact and symmetric to inspection. MUSCULOSKELETAL: Tone and strength symmetric. PSYCH: Alert. Oriented to person, place, and time. SKIN: About 1 cm erythematous papule without fluctuance in right antecubital fossa what appears to be the site of previous IV Objective Data Vital Signs Vital Signs: Vital Signs - 24 hr 11/17/20 14:25 11/17/20 18:06 11/17/20 19:56 Temperature 97.9 F 98.0 F 96.7 F L Pulse Rate 82 80 76 Respiratory Rate 16 18 16 Blood Pressure 121/78 104/70 132/85 Pulse Oximetry 96 96 98 11/17/20 20:00 11/18/20 06:50 11/18/20 08:40 Temperature 97 F L Pulse Rate 79 71 75 Respiratory Rate 18 Blood Pressure 114/69 Pulse Oximetry 97 11/18/20 12:00 Temperature 96.7 F L Pulse Rate 79 Respiratory Rate 18 Blood Pressure 112/76 Pulse Oximetry 99 Intake/Output Intake/Output: Intake & Output 11/15/20 11/16/20 11/17/20 11/18/20 23:59 23:59 23:59 23:59 Intake
[2020-11-18 16:00] VITALS: BP 124/78; PULSE 77; RESP 20; TEMP 36; O2SAT 97
[2020-11-18 20:00] VITALS: BP 118/70; BP 123/76; PULSE 80; PULSE 88; RESP 20; TEMP 36.1; O2SAT 98
[2020-11-18 20:12] VITALS: PULSE 77
[2020-11-18] MEDS: PANTOPRAZOLE 40 MG TABLET PO (20:12)
[2020-11-19] VITALS: BP 118/70; PULSE 71; PULSE 88; RESP 18; TEMP 35.9; O2SAT 98
[2020-11-19 04:00] VITALS: BP 122/73; PULSE 74; PULSE 88; RESP 16; TEMP 36; O2SAT 97
[2020-11-19 06:07] LABS: Hematocrit 43.2 % (42.0-52.0); Hemoglobin 14.5 g/dL (14.0-18.0); Mean Corpuscular HGB Conc 33.6 g/dl (32-36); Mean Corpuscular Hemoglobin 33.5 pg (26-34); Mean Corpuscular Volume 99.8 fl (80-100); Mean Platelet Volume 9.6 fl (7.4-10.4); Platelet Count Result 114 k/mm3 (150-375); Red Blood Count 4.33 M/mm3 (4.6-6.20); White Blood Count 4.7 K/mm3 (4.5-10.0)
[2020-11-19 06:27] LABS: Alanine Aminotransferase 20 U/L (4-50); Albumin Level 2.9 g/dL (3.5-5.1); Alkaline Phosphatase 116 U/L (38-126); Anion Gap 5 mmol/L (8-16); Aspartate Amino Transferase 77 U/L (17-59); Bilirubin,Total 0.6 mg/dL (0.2-1.3); Blood Urea Nitrogen 9 mg/dL (9-20); Calcium 8.8 mg/dL (8.4-10.2); Carbon Dioxide 26 mmol/L (22-30); Chloride 106 mmol/L (98-107); Estimated CRCL calculation 115 ml/min; Estimated Glomerular Filt Rate > 60; Glucose 90 mg/dL (75-110); Lipase 207 U/L (23-300); Potassium 3.6 mmol/L (3.4-5.0); Sodium 137 mmol/L (137-145)
[2020-11-19 08:00] VITALS: BP 140/79; PULSE 70; RESP 16; TEMP 36.3; O2SAT 98
[2020-11-19 09:12] VITALS: PULSE 70
[2020-11-19] MEDS: METOPROLOL TARTRATE 25 MG TABLET PO (09:12)
[2020-11-19] MEDS: THIAMINE HCL 200 MG/2 ML VIAL 100 MG IV PUSH (09:12)
[2020-11-19] MEDS: chlordiazePOXIDE (*CRX) 25 MG CAPSULE 50 MG PO (09:12)
--- NOTE | 2020-11-19 12:23 | PM.DS ---
DS: Admitting Diagnosis Admitting Diagnosis Admitting Diagnosis: TRemulous DS: Discharge Diagnosis Discharge Diagnosis (1) Abdominal pain: Qualifiers: Abdominal location: epigastric Qualified Code(s): R10.13 - Epigastric pain Code(s): R10.9 - Unspecified abdominal pain Status: Acute Assessment and Plan: Suspect due to alcohol induced gastritis PPI added (2) Hypokalemia: Code(s): E87.6 - Hypokalemia Status: Resolved (3) Alcohol withdrawal: Qualifiers: Complication of substance-induced condition: with unspecified complication Qualified Code(s): F10.239 - Alcohol dependence with withdrawal, unspecified Code(s): F10.239 - Alcohol dependence with withdrawal, unspecified Status: Resolved Assessment and Plan: Acute phase has resolved [facility] protocol Wean Librium in [place] and stop Adviced to quit drinking alcohol (4) Phlebitis after infusion: Qualifiers: Encounter type: initial encounter Qualified Code(s): T80.1XXA - Vascular complications following infusion, transfusion and therapeutic injection, initial encounter; I80.9 - Phlebitis and thrombophlebitis of unspecified site Code(s): T80.1XXA - Vascular complications following infusion, transfusion and therapeutic injection, initial encounter; I80.9 - Phlebitis and thrombophlebitis of unspecified site Status: Acute Assessment and Plan: Apply heat and monitor (5) Alcohol abuse: Code(s): F10.10 - Alcohol abuse, uncomplicated Status: Chronic Assessment and Plan: [facility] PROTOCOL Advised quitting alcohol (6) GERD (gastroesophageal reflux disease): Qualifiers: Esophagitis presence: esophagitis presence not specified Qualified Code(s): K21.9 - Gastro-esophageal reflux disease without esophagitis Code(s): K21.9 - Gastro-esophageal reflux disease without esophagitis Status: Chronic Assessment and Plan: Continue PPI (7) Left shoulder pain: Qualifiers: Chronicity: acute Qualified Code(s): M25.512 - Pain in left shoulder Code(s): M25.512 - Pain in left shoulder Status: Acute Assessment and Plan: Most likely due to fall P.r.n. acetaminophen (8) Alcoholic ketoacidosis: Code(s): E87.2 - Acidosis Status: Acute Assessment and Plan: Resolved stable for discharge back to [place]. DS: Summary Hospital Course Hospital Course: 70 years old male with past medical history of chronic alcoholism presented to the hospital with shakiness patient also has a fall few days before admission did not hit his head according to him patient was tremulous and shaky and the ER was found to have blood alcohol level more than 200 also was found to have severe metabolic acidosis secondary to lactic acidosis was treated with IV fluid CT scan of the abdomen showed probable fatty liver chest x-ray shows probable goiter. Please follow thyroid in [facility]. Pt awaiting placement, chronic alcoholic. Pt is weaning off Librium. librium 25 mg p bid for 3 days 25 mg po qdaily for 3 days then STOP. Time Spent with Patient Time attestation: Total time spent providing and/or coordinating discharge services:40 minutes on day of discharge Exam Narrative: Exam Narrative: Generally: Well man NECK: No JVD CHEST: Clear to auscultation. HEART: NL S1/S2, regular, no murmur ABDOMEN: BS+, soft, nontender, no mass, no bruits EXTREMITIES: No cyanosis, edema, or clubbing NEUROLOGIC: CN intact and symmetric to inspection. MUSCULOSKELETAL: Tone and strength symmetric. PSYCH: Alert. Oriented to person, place, and time. DS: Data Data Completed and Pending Labs on day of discharge: Labs from last 24 hours 11/19/20 11/19/20 05:46 05:46 WBC 4.7 RBC 4.33 L Hgb 14.5 Hct 43.2 MCV 99.8 MCH 33.5 MCHC 33.6 RDW 13.0 Plt Count 114 L MPV 9.6 Sodium 137 Potassium 3.6 Chloride 106 Ca
== END 2020-11-19 15:55 | DRG 897 ==
LOC: ANHED 23:05 → ANHIMU 11-14 02:42 → ANH3MED 11-19 12:23 → ANHIMU 11-21 15:14
PROVIDERS: Internal Medicine; Admitting Provider Internal Medicine; Emergency Provider Emergency Medicine; Visit Provider Family Medicine
DX: F10.230 Alcohol dependence with withdrawal, uncomplicated (principal); E87.2 Acidosis; T80.1XXA Vascular complications following infusion, transfusion and therapeutic injection, initial encounter; I80.9 Phlebitis and thrombophlebitis of unspecified site; F10.220 Alcohol dependence with intoxication, uncomplicated; Y90.7 Blood alcohol level of 200-239 mg/100 ml; Z20.822 Contact with and (suspected) exposure to COVID-19; K59.00 Constipation, unspecified; K21.9 Gastro-esophageal reflux disease without esophagitis; I10 Essential (primary) hypertension; E78.5 Hyperlipidemia, unspecified; E04.9 Nontoxic goiter, unspecified; M19.012 Primary osteoarthritis, left shoulder; M25.512 Pain in left shoulder; E87.6 Hypokalemia; R10.13 Epigastric pain; Z87.891 Personal history of nicotine dependence; Z79.01 Long term (current) use of anticoagulants; Z79.899 Other long term (current) drug therapy; Z91.81 History of falling
CPT/HCPCS: 36415; 36600; 71045; 73030; 74177; 80048; 80053; 80307; 82010; 82140; 82805; 82948; 83605; 83690; 83735; 84439; 84443; 84480; 84484; 85025; 85027; 85055; 85610; 85730; 93005; 96361; 96374; 96375; 97110; 97116; 97161; 97165; 97530; 97535; 99285; A9270; C9803; J2060; J3411; J3475; J7030; J7042; Q9967; U0003; U0005

== ENCOUNTER 2021-01-11 19:29 | Inpatient (IN) | payer MEDICARE, SELFPAY ==
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
--- NOTE | ~2021-01-11 | US_ITS ---
EXAMINATION: US thyroid DATE: 01/13/2021 08:46 INDICATION: Left thyroid nodule. TECHNIQUE: Multiple ultrasound images of the thyroid were obtained. COMPARISON: Chest CT 01/11/2021, CT cervical spine 06/09/10 FINDINGS: The right thyroid lobe measures 4.4 x 1.5 x 1.3 cm. The left thyroid lobe measures 8.3 x 4.7 x 5.7 c m. In the left thyroid lobe, there is a 6.9 cm predominantly cystic, isoechoic, [id number] nodu le with ill-defined margin without echogenic foci (TI-RADS TR2). IMPRESSION: 1. Left thyroid nodule, not suspicious. No follow-up is needed. Reviewed, dictated and finalized at location A.
--- NOTE | ~2021-01-11 | CT_ITS ---
EXAMINATION: CT cervical spine wo con DATE: 01/11/2021 22:43 INDICATION: Multiple falls. Neck pain. TECHNIQUE: Computed tomography (CT) of the cervical spine was performed without intravenous contrast. The dose-length product was 523 mGy-cm. Automated exposure control and iterative reconstruction tech nique were employed. COMPARISON: CT dated 08/18/2019 FINDINGS: Slightly increased size of 7.8 cm left thyroid mass with rightward displacement of the trac hea. Cannot exclude thyroid carcinoma. There is levoscoliosis of the cervical spine. There is reversa l of cervical lordosis. There are changes of anterior fusion at C4-5 with interbody bone graft and an terior plate and screws. There is decreased disc height at C3-4 and C6-7. No acute fracture or trauma tic malalignment is identified. Odontoid process within normal limits. There is multilevel uncinate a nd facet hypertrophy. IMPRESSION: 1. No acute fracture. 2: Severe cervical spondylosis with levoscoliosis and reversal of cervical lordosis. 3: Enlarging left thyroid mass measuring up to 7.8 cm. Cannot exclude thyroid malignancy. Recommend f ollow-up thyroid ultrasound on a nonemergent basis. Reviewed, dictated and finalized at location A. IMPRESSION: 1. No acute fracture. 2: Severe cervical spondylosis with levoscoliosis and reversal of cervical lord osis. 3: Enlarging left thyroid mass measuring up to 7.8 cm. Cannot exclude thyroid m alignancy. Recommend follow-up thyroid ultrasound on a nonemergent basis.
[2021-01-11 19:31] VITALS: BP 141/90; PULSE 91; RESP 20; TEMP 36.8; O2SAT 96
[2021-01-11 19:37] LABS: Glucose Point of Care 79 mg/dl (65-105)
--- NOTE | 2021-01-11 20:04 | PC.NURSE ---
Pt to radiology via stretcher, alert and upright during transport out of ED.
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
[2021-01-11] MEDS: ONDANSETRON INJ 4 MG/2 ML VIAL IV PUSH (21:01)
[2021-01-11] MEDS: MORPHINE SULFATE (*CRX) 4 MG/ML INJ IV PUSH (21:02)
[2021-01-11 21:06] VITALS: BP 139/75; PULSE 85; RESP 16; O2SAT 98
--- NOTE | 2021-01-11 21:29 | PC.NURSE ---
2103: CALLED [facility], PATIENT PLACEMENT. SPOKE WITH SHELIA. SHE RETURNED CALL @ 4. [facility] DECLINED PATIENT, AT [facility]. SHELIA'S DIRECT # IS [phone]
[2021-01-11 21:41] LABS: Basophils Percent Auto 0.4 % (0.2-1.2); Eosinophils Percent Auto 0.2 % (0-4.4); Hematocrit 39.5 % (42.0-52.0); Hemoglobin 13.6 g/dL (14.0-18.0); Immature Granulocyte Absolute 0.02 K/mm3 (0.00-0.031); Immature Granulocyte Percent A 0.4 % (0-0.5); Immature Platelet Fraction Pct 3.4 % (0.9-11.2); Lymphocytes Absolute Auto 1.21 K/mm3 (0.9-3.2); Lymphocytes Percent Auto 24.3 % (18.3-44.2); Mean Corpuscular HGB Conc 34.4 g/dl (32-36); Mean Corpuscular Hemoglobin 32.5 pg (26-34); Mean Corpuscular Volume 94.3 fl (80-100); Mean Platelet Volume 9.4 fl (7.4-10.4); Monocytes Percent Auto 19.9 % (2.6-8.5); Neutrophils Absolute Auto 2.7 K/mm3 (1.3-6.7); Neutrophils Percent Auto 54.8 % (45.5-73.1); Platelet Count Result 128 k/mm3 (150-375); Red Blood Count 4.19 M/mm3 (4.6-6.20); Red Cell Distribution Width 12.1 % (11.5-14.5)
[2021-01-11 21:56] LABS: Alanine Aminotransferase 24 U/L (4-50); Albumin Level 3.8 g/dL (3.5-5.1); Alkaline Phosphatase 83 U/L (38-126); Anion Gap 14 mmol/L (8-16); Aspartate Amino Transferase 97 U/L (17-59); Bilirubin,Total 1.9 mg/dL (0.2-1.3); Blood Urea Nitrogen 7 mg/dL (9-20); Calcium 8.7 mg/dL (8.4-10.2); Carbon Dioxide 22 mmol/L (22-30); Chloride 96 mmol/L (98-107); Estimated CRCL calculation 115 ml/min; Estimated Glomerular Filt Rate > 60; Glucose 72 mg/dL (75-110); Potassium 3.4 mmol/L (3.4-5.0); Sodium 132 mmol/L (137-145)
--- NOTE | 2021-01-11 22:18 | PC.NURSE ---
Pt to CT via stretcher at this time
[2021-01-11] MEDS: LORazepam INJ (*CRX) 2 MG/ML VIAL 1 MG IV PUSH (23:06)
[2021-01-11 23:08] VITALS: BP 157/96; PULSE 99; RESP 16; O2SAT 95
[2021-01-11 23:41] LABS: INR 1.2; Prothrombin Time 15.1 Seconds (11.1-14.7)
[2021-01-11 23:42] LABS: Partial Thromboplastin Time 28.5 SECONDS (22.3-36.8)
[2021-01-12] VITALS (12 sets, daily range): BP systolic 135–155; BP diastolic 79–98; PULSE 75–92; RESP 14–20; TEMP 36.2; O2SAT 91–98
[2021-01-12] MEDS: THIAMINE HCL INJ 100 MG, FOLIC ACID INJ 1 MG, MULTIVITAMINS-12 INJ VIAL 1 5 ML, MULTIVI... IV CONT (00:33)
--- NOTE | 2021-01-12 01:46 | ADMGEN ---
This patient, Toro Zeng, was admitted to 3 [facility] Surg Room 322-01. Patient/family oriented to hospital policies and general routines including ID bracelet, bed and alarms, visiting hours, pain management, procedures, bathroom and other care routines, personal items, smoking policy, room service/diet, and visiting hours. Information on how to activate the Rapid Response Team has been discussed. Patient/Family are encouraged to report perceived risks to care and to ask questions if they do not understand what they are told or what they should do.
[2021-01-12 06:44] LABS: Anion Gap 12 mmol/L (8-16); Blood Urea Nitrogen 6 mg/dL (9-20); Calcium 8.6 mg/dL (8.4-10.2); Carbon Dioxide 26 mmol/L (22-30); Chloride 96 mmol/L (98-107); Estimated CRCL calculation 115 ml/min; Estimated Glomerular Filt Rate > 60; Glucose 77 mg/dL (75-110); Potassium 3.4 mmol/L (3.4-5.0); Sodium 134 mmol/L (137-145)
[2021-01-12] MEDS: MORPHINE SULFATE (*CRX) 2 MG/ML INJ 1 MG IV PUSH ×2 (10:05→19:02)
[2021-01-12] MEDS: HYDROcodone/acetaminophen (*CRX) 5-325 MG TABLET 1 TAB PO ×3 (11:15→23:43)
[2021-01-12] MEDS: LORazepam INJ (*CRX) 2 MG/ML VIAL 1 MG IV PUSH (11:20)
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
[2021-01-12] MEDS: BISACODYL 5 MG TABLET EC PO (16:25)
[2021-01-12] MEDS: SODIUM CHLORIDE 0.9% IV 1,000 ML 75 ML IV CONT (16:25)
[2021-01-12] MEDS: chlordiazePOXIDE (*CRX) 25 MG CAPSULE PO (21:13)
[2021-01-13] VITALS (9 sets, daily range): BP systolic 156–166; BP diastolic 79–90; PULSE 71–93; RESP 16–18; TEMP 36.1–36.5; O2SAT 97–98
[2021-01-13] MEDS: MORPHINE SULFATE (*CRX) 2 MG/ML INJ 1 MG IV PUSH ×3 (04:11→20:07)
[2021-01-13] MEDS: chlordiazePOXIDE (*CRX) 25 MG CAPSULE PO ×3 (05:40→21:04)
[2021-01-13] MEDS: SODIUM CHLORIDE 0.9% IV 1,000 ML 75 ML IV CONT ×2 (05:41→15:42)
[2021-01-13 07:25] LABS: Hematocrit 40.6 % (42.0-52.0); Hemoglobin 13.3 g/dL (14.0-18.0); Immature Platelet Fraction Pct 4.3 % (0.9-11.2); Mean Corpuscular HGB Conc 32.8 g/dl (32-36); Mean Corpuscular Hemoglobin 32.3 pg (26-34); Mean Corpuscular Volume 98.5 fl (80-100); Mean Platelet Volume 10.7 fl (7.4-10.4); Platelet Count Result 101 k/mm3 (150-375); Red Blood Count 4.12 M/mm3 (4.6-6.20); Red Cell Distribution Width 12.1 % (11.5-14.5); White Blood Count 3.7 K/mm3 (4.5-10.0)
[2021-01-13 07:36] LABS: Alanine Aminotransferase 19 U/L (4-50); Albumin Level 3.2 g/dL (3.5-5.1); Alkaline Phosphatase 76 U/L (38-126); Anion Gap 9 mmol/L (8-16); Aspartate Amino Transferase 58 U/L (17-59); Bilirubin,Total 1.9 mg/dL (0.2-1.3); Blood Urea Nitrogen 3 mg/dL (9-20); Calcium 8.2 mg/dL (8.4-10.2); Carbon Dioxide 27 mmol/L (22-30); Chloride 99 mmol/L (98-107); Estimated CRCL calculation 139 ml/min; Estimated Glomerular Filt Rate > 60; Glucose 94 mg/dL (75-110); Magnesium 1.6 mg/dL (1.6-2.3); Phosphorus 2.8 mg/dL (2.5-4.5); Sodium 135 mmol/L (137-145)
[2021-01-13] MEDS: SERTRALINE HCL 50 MG TABLET 100 MG PO (08:17)
[2021-01-13] MEDS: HYDROcodone/acetaminophen (*CRX) 5-325 MG TABLET 1 TAB PO ×2 (08:17→15:40)
[2021-01-13] MEDS: FOLIC ACID 1 MG TABLET PO (08:18)
[2021-01-13] MEDS: THIAMINE HCL 100 MG TABLET PO (08:18)
[2021-01-13] MEDS: MULTIVITAMINS THERAPEUTIC TAB (*BKC) 1 TABLET PO (08:18)
[2021-01-13] MEDS: BISACODYL 5 MG TABLET EC PO (08:23)
[2021-01-13] MEDS: ONDANSETRON INJ 4 MG/2 ML VIAL IV PUSH (08:25)
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
--- NOTE | 2021-01-13 15:51 | PCPTNOTE ---
PA placed instructions for NWB on right UE. He can walk with tomas walker.
[2021-01-14] VITALS (7 sets, daily range): BP systolic 146–161; BP diastolic 81–83; PULSE 70–108; RESP 18; TEMP 36.3–36.4; O2SAT 98
[2021-01-14] MEDS: MORPHINE SULFATE (*CRX) 2 MG/ML INJ 1 MG IV PUSH ×2 (02:25→06:48)
[2021-01-14] MEDS: chlordiazePOXIDE (*CRX) 25 MG CAPSULE PO ×2 (06:28→16:31)
[2021-01-14] MEDS: SODIUM CHLORIDE 0.9% IV 1,000 ML 75 ML IV CONT (06:50)
[2021-01-14 06:51] LABS: Hemoglobin 13.3 g/dL (14.0-18.0); Immature Platelet Fraction Pct 4.4 % (0.9-11.2); Mean Corpuscular HGB Conc 33.3 g/dl (32-36); Mean Corpuscular Hemoglobin 32.3 pg (26-34); Mean Corpuscular Volume 97.1 fl (80-100); Mean Platelet Volume 10.6 fl (7.4-10.4); Platelet Count Result 115 k/mm3 (150-375); Red Blood Count 4.12 M/mm3 (4.6-6.20); White Blood Count 4.8 K/mm3 (4.5-10.0)
[2021-01-14 07:22] LABS: Anion Gap 7 mmol/L (8-16); Blood Urea Nitrogen 3 mg/dL (9-20); Calcium 8.3 mg/dL (8.4-10.2); Carbon Dioxide 26 mmol/L (22-30); Chloride 102 mmol/L (98-107); Estimated CRCL calculation 139 ml/min; Estimated Glomerular Filt Rate > 60; Glucose 84 mg/dL (75-110); Potassium 3.1 mmol/L (3.4-5.0); Sodium 135 mmol/L (137-145)
--- NOTE | 2021-01-14 07:52 | PC.NURSE ---
Charting and med pass was done in error under Kathya Barnes Rn on 01/13/21 from 1900 - 2099.
[2021-01-14] MEDS: HYDROcodone/acetaminophen (*CRX) 5-325 MG TABLET 1 TAB PO ×2 (08:50→16:31)
[2021-01-14] MEDS: BISACODYL 5 MG TABLET EC PO (08:50)
[2021-01-14] MEDS: MULTIVITAMINS THERAPEUTIC TAB (*BKC) 1 TABLET PO (08:50)
[2021-01-14] MEDS: SERTRALINE HCL 50 MG TABLET 100 MG PO (08:50)
[2021-01-14] MEDS: FOLIC ACID 1 MG TABLET PO (08:50)
[2021-01-14] MEDS: THIAMINE HCL 100 MG TABLET PO (08:50)
[2021-01-14] MEDS: POTASSIUM CHLORIDE 20 MEQ TABLET 40 MEQ PO (08:55)
[2021-01-14] MEDS: LORazepam INJ (*CRX) 2 MG/ML VIAL 1 MG IV PUSH (12:59)
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
--- NOTE | 2021-01-14 18:21 | PC.NURSE ---
Pt has been discharged. Pt's IV was removed and discharge instructions were reviewed with the pt. The narcotic script was given to the pt's POA. The POA was agitated due to having to wait for pt to be discharged, and told this nurse to review discharge instructions with pt, although he was not interested in listening, and was in a hurry to get home. Pt was taken by wheelchair to the front to meet his ride.
== END 2021-01-14 18:20 | disposition home or self-care (01) | DRG 897 ==
LOC: ANHED 23:22 → ANH3MEDSUR 01-12 00:47
PROVIDERS: Internal Medicine; Nurse Practitioner; Admitting Provider Internal Medicine; Emergency Provider Emergency Medicine; Visit Provider Nurse Practitioner
DX: F10.26 Alcohol dependence with alcohol-induced persisting amnestic disorder (principal); S22.41XA Multiple fractures of ribs, right side, initial encounter for closed fracture; E87.1 Hypo-osmolality and hyponatremia; E87.6 Hypokalemia; V19.3XXA Pedal cyclist (driver) (passenger) injured in unspecified nontraffic accident, initial encounter; F41.8 Other specified anxiety disorders; I10 Essential (primary) hypertension; Z86.711 Personal history of pulmonary embolism; D69.6 Thrombocytopenia, unspecified
CPT/HCPCS: 36415; 70450; 71101; 71260; 72125; 74177; 76536; 80048; 80053; 82948; 83735; 84100; 85025; 85027; 85055; 85610; 85730; 96374; 96375; 96376; 97116; 97161; 97165; 97530; 99285; A9270; G0378; J2060; J2270; J2405; J3411; J3475; J7030; Q9967

== ENCOUNTER 2021-01-28 03:20 | Emergency (ER) | payer MEDICARE, SELFPAY ==
[2021-01-28] VITALS (61 sets, daily range): BP systolic 132–168; BP diastolic 75–107; PULSE 63–97; RESP 12–19; TEMP 36.7; O2SAT 92–100
--- NOTE | ~2021-01-28 | CT_ITS ---
EXAMINATION: CT cervical spine wo con DATE: 01/28/2021 04:03 INDICATION: Status post fall. Neck pain. TECHNIQUE: Computed tomography (CT) of the cervical spine was performed without intravenous contrast. The dose-length product was 421 mGy-cm. Automated exposure control and iterative reconstruction tech nique were employed. COMPARISON: CT dated 01/11/2021 FINDINGS: No acute fracture, subluxation or dislocation. Severe cervical spondylosis with levoscolios is and reversal cervical lordosis. There is carotid atherosclerosis. Odontoid process within normal l imits. There are surgical changes of anterior fusion at C4-5. There is loss of disc height at C3-4, C 5-6 and C6-7. No evidence for perched facet. Cystic mass of the left thyroid gland reidentified. Lung apices are unremarkable. IMPRESSION: 1. No acute fracture. Reviewed, dictated and finalized at location A. IMPRESSION: 1. No acute fracture.
--- NOTE | ~2021-01-28 | XR_ITS ---
EXAMINATION: XR chest 1V 01/28/2021 04:03 INDICATION: Status post fall. Chest pain. PROCEDURE: AP view of the chest COMPARISON: Comparison to multiple prior studies sequentially, with oldest reviewed study dated 08/18. FINDINGS: The lungs are clear. The cardiomediastinal silhouette is within normal limits. There are no pleural effusions. There is no pneumothorax suspected. Chronic elevation of the right diaphragm. IMPRESSION: 1: NO ACUTE CARDIOPULMONARY DISEASE. Reviewed, dictated and finalized at location A.
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
[2021-01-28 03:53] LABS: Basophils Absolute Auto 0.1 K/mm3 (0.0-0.1); Eosinophils Absolute Auto 0.1 K/mm3 (0-0.3); Eosinophils Percent Auto 2.3 % (0-4.4); Hematocrit 47.1 % (42.0-52.0); Hemoglobin 15.1 g/dL (14.0-18.0); Immature Granulocyte Absolute 0.03 K/mm3 (0.00-0.031); Immature Granulocyte Percent A 0.5 % (0-0.5); Lymphocytes Absolute Auto 2.85 K/mm3 (0.9-3.2); Lymphocytes Percent Auto 47.3 % (18.3-44.2); Mean Corpuscular HGB Conc 32.1 g/dl (32-36); Mean Corpuscular Hemoglobin 31.9 pg (26-34); Mean Corpuscular Volume 99.4 fl (80-100); Mean Platelet Volume 8.6 fl (7.4-10.4); Monocytes Absolute Auto 0.4 K/mm3 (0.1-0.6); Monocytes Percent Auto 6.5 % (2.6-8.5); Neutrophils Absolute Auto 2.6 K/mm3 (1.3-6.7); Neutrophils Percent Auto 42.4 % (45.5-73.1); Platelet Count Result 293 k/mm3 (150-375); Red Blood Count 4.74 M/mm3 (4.6-6.20); Red Cell Distribution Width 13.2 % (11.5-14.5)
[2021-01-28 04:03] LABS: Alanine Aminotransferase 15 U/L (4-50); Albumin Level 3.8 g/dL (3.5-5.1); Alkaline Phosphatase 214 U/L (38-126); Anion Gap 8 mmol/L (8-16); Aspartate Amino Transferase 42 U/L (17-59); Bilirubin,Total 0.4 mg/dL (0.2-1.3); Blood Urea Nitrogen 4 mg/dL (9-20); Calcium 8.9 mg/dL (8.4-10.2); Carbon Dioxide 30 mmol/L (22-30); Chloride 113 mmol/L (98-107); Estimated CRCL calculation 121 ml/min; Estimated Glomerular Filt Rate > 60; Glucose 81 mg/dL (65-110); INR 0.9; Potassium 3.5 mmol/L (3.4-5.0); Prothrombin Time 12.5 Seconds (11.1-14.7); Sodium 151 mmol/L (137-145)
[2021-01-28 04:04] LABS: Partial Thromboplastin Time 25.6 SECONDS (22.3-36.8)
[2021-01-28 04:21] LABS: Ammonia < 9 umol/L (9-30)
[2021-01-28 04:30] LABS: Ethanol 385 mg/dL (<10)
[2021-01-28 04:32] LABS: Add Urine Microscopic? NO; Appearance Urine Clear (Clear); Bilirubin Urine Negative (Negative); Blood Urine Negative (Negative); Color Urine Colorless (Yellow); Glucose Urine UA Negative (Negative); Ketones Urine Negative (Negative); Leukocyte Esterase Ur Negative LEU/UL (Negative); Nitrate Urine Negative (Negative); Protein Urine Negative (Negative); Urobilinogen Urine Negative mg/dL (<2.0)
[2021-01-28 04:40] LABS: Specific Grav Ur 1.003 (1.001-1.035)
[2021-01-28] MEDS: FOLIC ACID 1 MG TABLET PO (04:53)
[2021-01-28] MEDS: THIAMINE HCL 100 MG TABLET PO (04:53)
[2021-01-28 05:09] LABS: Amphetamine Screen Urine Negative (Negative); Barbiturate Screen Urine Negative (Negative); Benzodiazepines Screen Urine Positive (Negative); Cannabinoid Screen Urine Negative (Negative); Cocaine Screen Urine Negative (Negative); Methadone Screen Urine Negative (Negative); Opiate Screen Urine Negative (Negative); Phencyclidine Screen Urine Negative (Negative)
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
[2021-01-28] MEDS: SODIUM CHLORIDE 0.9% IV 1,000 ML 999 ML IV CONT (08:33)
--- NOTE | 2021-01-28 11:58 | PC.NURSE ---
Called patient ex- for a ride home. Ex- stated she will be able to pick the patient up, however she won't be able to until 4pm. ERP and cupola charger aware.
[2021-01-28 15:00] LABS: Anion Gap 9 mmol/L (8-16); Blood Urea Nitrogen 3 mg/dL (9-20); Calcium 8.1 mg/dL (8.4-10.2); Carbon Dioxide 28 mmol/L (22-30); Chloride 109 mmol/L (98-107); Estimated CRCL calculation 142 ml/min; Estimated Glomerular Filt Rate > 60; Glucose 95 mg/dL (65-110); Potassium 3.2 mmol/L (3.4-5.0); Sodium 146 mmol/L (137-145)
[2021-01-28] MEDS: POTASSIUM CHLORIDE 20 MEQ TABLET PO (15:14)
== END 2021-01-28 16:15 | disposition home or self-care (01) ==
PROVIDERS: General Practice; Emergency Provider Emergency Medicine
DX: F10.229 Alcohol dependence with intoxication, unspecified (principal); K21.9 Gastro-esophageal reflux disease without esophagitis; E78.00 Pure hypercholesterolemia, unspecified; I10 Essential (primary) hypertension; F41.9 Anxiety disorder, unspecified; F32.9 Major depressive disorder, single episode, unspecified; Z86.711 Personal history of pulmonary embolism; Z96.642 Presence of left artificial hip joint; Z79.899 Other long term (current) drug therapy; Y90.8 Blood alcohol level of 240 mg/100 ml or more; W19.XXXA Unspecified fall, initial encounter
CPT/HCPCS: 36415; 70450; 71045; 72125; 80048; 80053; 80307; 81003; 82140; 83735; 85025; 85610; 85730; 96360; 99284; A9270; J7030

== ENCOUNTER 2021-03-19 10:20 | Emergency (ER) | payer MEDICARE, SELFPAY ==
[2021-03-19] VITALS (14 sets, daily range): BP systolic 120–152; BP diastolic 70–92; PULSE 81–93; RESP 12–22; TEMP 36.8; O2SAT 94–97
[2021-03-19 10:40] LABS: Basophils Percent Auto 0.7 % (0.2-1.2); Eosinophils Percent Auto 0.7 % (0-4.4); Hematocrit 45.3 % (42.0-52.0); Hemoglobin 15.5 g/dL (14.0-18.0); Immature Granulocyte Absolute 0.02 K/mm3 (0.00-0.031); Immature Granulocyte Percent A 0.4 % (0-0.5); Lymphocytes Absolute Auto 1.88 K/mm3 (0.9-3.2); Lymphocytes Percent Auto 41.8 % (18.3-44.2); Mean Corpuscular HGB Conc 34.2 g/dl (32-36); Mean Corpuscular Hemoglobin 31.9 pg (26-34); Mean Corpuscular Volume 93.2 fl (80-100); Monocytes Absolute Auto 0.9 K/mm3 (0.1-0.6); Monocytes Percent Auto 19.3 % (2.6-8.5); Neutrophils Absolute Auto 1.7 K/mm3 (1.3-6.7); Neutrophils Percent Auto 37.1 % (45.5-73.1); Platelet Count Result 144 k/mm3 (150-375); Red Blood Count 4.86 M/mm3 (4.6-6.20); Red Cell Distribution Width 13.7 % (11.5-14.5); White Blood Count 4.5 K/mm3 (4.5-10.0)
[2021-03-19 10:49] LABS: Add Urine Microscopic? YES; Appearance Urine Clear (Clear); Bacteria Urine Trace /hpf; Bilirubin Urine Negative (Negative); Blood Urine 1+ (Negative); Color Urine Straw (Yellow); Glucose Urine UA Negative (Negative); Ketones Urine Trace mg/dL (Negative); Leukocyte Esterase Ur 3+ LEU/UL (Negative); Mucus Urine Rare /lpf; Nitrate Urine Negative (Negative); Protein Urine Negative (Negative); Urobilinogen Urine Negative mg/dL (<2.0); WBC Urine 31-50 /hpf
[2021-03-19 10:53] LABS: Alanine Aminotransferase 20 U/L (4-50); Alkaline Phosphatase 103 U/L (38-126); Anion Gap 18 mmol/L (8-16); Aspartate Amino Transferase 86 U/L (17-59); Bilirubin,Total 0.9 mg/dL (0.2-1.3); Blood Urea Nitrogen 6 mg/dL (9-20); Calcium 8.5 mg/dL (8.4-10.2); Carbon Dioxide 21 mmol/L (22-30); Chloride 100 mmol/L (98-107); Estimated CRCL calculation 115 ml/min; Estimated Glomerular Filt Rate > 60; Glucose 80 mg/dL (65-110); Lipase 112 U/L (23-300); Sodium 139 mmol/L (137-145)
[2021-03-19 11:01] LABS: Specific Grav Ur 1.004 (1.001-1.035)
[2021-03-19] MEDS: SODIUM CHLORIDE 0.9% IV 1,000 ML 999 ML IV CONT (11:19)
[2021-03-19] MEDS: ONDANSETRON INJ 4 MG/2 ML VIAL IV PUSH (11:19)
--- NOTE | 2021-03-19 12:10 | PC.NURSE ---
pt bed alarm sounding. pt found climbing out of bed. pt helped back into bed. re oriented to call light and told to ask for help before getting out of bed.
[2021-03-19 12:38] LABS: Ethanol 302 mg/dL (<10)
--- NOTE | 2021-03-19 16:00 | PC.NURSE ---
Pt up out of bed - to hallway - waving at nurses in the nurses station.
--- NOTE | 2021-03-19 16:05 | ED.GENADULT ---
HPI - General Adult General Chief complaint: Abdominal Pain Stated complaint: left upper abd pain Time Seen by Provider: 03/19/21 10:44 History of Present Illness HPI narrative: Patient is a 70-year-old male who presents the ER with reports of epigastric pain. Patient reports he is a daily drinker and had a couple swigs of vodka today and then his epigastrium began to ill him. Denies any fevers or chills or sweats. No nausea or vomiting. Denies any diarrhea. Related Data Home Medications Medication Instructions Recorded Confirmed sertraline 100 mg PO DAILY 11/10/19 01/12/21 Allergies Allergy/AdvReac Type Severity Reaction Status Date / Time No Known Allergies Allergy Mild Verified 03/19/21 10:24 Review of Systems Review of Systems: All systems reviewed & are unremarkable except as noted in HPI and below Constitutional: Constitutional: Denies chills, Denies fever(s) and Denies weakness ENT: Denies nasal congestion and Denies sore throat Cardiovascular: Cardiovascular: Denies chest pain and Denies radiating jaw, neck or arm pain Respiratory: Respiratory: Denies cough and Denies dyspnea Gastrointestinal: Gastrointestinal: Reports abdominal pain, Denies diarrhea, Reports nausea and Denies vomiting Genitourinary: Genitourinary: Denies dysuria and Denies urinary frequency PMF Past Medical History Medical History Alcoholism Anxiety Depression Deviated septum Esophageal varices GERD (gastroesophageal reflux disease) EGD normal 08/24/19 Hx pulmonary embolism CTA RLL PE 08/20/19 Hypercholesteremia Hypertension Nose fracture Surgical History Surgical History H/O hernia repair x2 History of appendectomy History of total left hip arthroplasty Family History Family History Father Alcoholism Congestive heart failure Mother Cancer Grandparent Diabetes mellitus Social History Social History (Updated 01/12/21 @ 14:49 by Danilo Cruz MD) Social History: Patient lives alone. He resides at [facility]. He is . No children. Alcohol use as mentioned above. He has a history of marijuana, heroin and amphetamine use but no history of IV drug use. He smoked tobacco sporadically but quit in his 30s. He is a [employer] . He did receive his degree after the service in social studies. 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 He lists his ex- to be the individual to make decisions for him if he is unable. Smoking status: Never smoker Second hand tobacco smoke exposure: No Alcohol intake: current Drinks per week: 30 Substance use: unknown Substance use type: does not use Other substance usage details: drinks 1/5 vodka daily Last use: years ago Gender identity (if verbalized by the patient): Male Spiritual care concerns: No Agree to blood products: Yes Exam Narrative: GENERAL: Well-appearing, well-nourished, and in no acute distress. HEAD: Normocephalic, atraumatic. ENT: Mucous membranes moist. CHEST: Clear to auscultation. No respiratory distress. HEART: Regular rate and rhythm. Normal peripheral pulses. ABDOMEN: Soft, nontender, nondistended. EXTREMITIES: Normal range of motion. No edema. SKIN: Warm, dry, no rash. NEURO: Alert and oriented x3. PSYCH: Normal mood and affect. Course Course Emergency Course: Patient is up and ambulatory without issue. Unremarkable evaluation with exception of alcohol intoxication. POA is willing to come pick the patient up. Vital Signs Vital signs: Vital Signs Temperature 98.2 F 03/19/21 10:18 Pulse Rate 87 03/19/21 10:18 Respiratory Rate 16 03/19/21 10:18 Blood Pressure 152/86 H 03/19/21 10:18 Pulse Oximetry 96 03/19/21 10:18 Temperature
== END 2021-03-19 17:05 | disposition home or self-care (01) ==
PROVIDERS: Emergency Provider Emergency Medicine
DX: F10.120 Alcohol abuse with intoxication, uncomplicated (principal); F41.9 Anxiety disorder, unspecified; F32.9 Major depressive disorder, single episode, unspecified; E78.00 Pure hypercholesterolemia, unspecified; I10 Essential (primary) hypertension; Z87.19 Personal history of other diseases of the digestive system; Z79.899 Other long term (current) drug therapy; Z86.711 Personal history of pulmonary embolism; Z87.891 Personal history of nicotine dependence; Y90.8 Blood alcohol level of 240 mg/100 ml or more
CPT/HCPCS: 36415; 51701; 80053; 80307; 81001; 83690; 85025; 87086; 87147; 87181; 87186; 96361; 96374; 99284; J2405; J7030

== ENCOUNTER 2021-06-09 00:24 | Emergency (ER) | payer MEDICARE, SELFPAY ==
[2021-06-09 01:05] VITALS: BP 173/105; PULSE 107; RESP 18; TEMP 36.9; O2SAT 100
--- NOTE | 2021-06-09 04:16 | PC.NURSE ---
Pt pacing in waiting room, continues to ask when he will be going back to a room. Pt has been told numerous times that there are not any availabe beds and pts are taken back by the most critical at this time.
[2021-06-09] MEDS: hydrOXYzine HCL 25 MG TABLET PO (06:11)
[2021-06-09] MEDS: SODIUM CHLORIDE 0.9% IV 1,000 ML 999 ML IV CONT (06:12)
[2021-06-09 06:19] LABS: Basophils Absolute Auto 0.1 K/mm3 (0.0-0.1); Basophils Percent Auto 0.6 % (0.2-1.2); Eosinophils Absolute Auto 0.9 K/mm3 (0-0.3); Eosinophils Percent Auto 10.5 % (0-4.4); Hematocrit 42.4 % (42.0-52.0); Hemoglobin 14.4 g/dL (14.0-18.0); Immature Granulocyte Absolute 0.04 K/mm3 (0.00-0.031); Immature Granulocyte Percent A 0.5 % (0-0.5); Lymphocytes Absolute Auto 1.37 K/mm3 (0.9-3.2); Lymphocytes Percent Auto 16.9 % (18.3-44.2); Mean Corpuscular Hemoglobin 33.2 pg (26-34); Mean Corpuscular Volume 97.7 fl (80-100); Mean Platelet Volume 9.3 fl (7.4-10.4); Monocytes Absolute Auto 0.9 K/mm3 (0.1-0.6); Monocytes Percent Auto 11.5 % (2.6-8.5); Neutrophils Absolute Auto 4.9 K/mm3 (1.3-6.7); Platelet Count Result 195 k/mm3 (150-375); Red Blood Count 4.34 M/mm3 (4.6-6.20); Red Cell Distribution Width 13.2 % (11.5-14.5); White Blood Count 8.1 K/mm3 (4.5-10.0)
[2021-06-09 07:16] LABS: Ethanol < 10 mg/dL (<10)
[2021-06-09 07:18] LABS: Alanine Aminotransferase 14 U/L (4-50); Albumin Level 4.3 g/dL (3.5-5.1); Alkaline Phosphatase 75 U/L (38-126); Anion Gap 9 mmol/L (8-16); Aspartate Amino Transferase 43 U/L (17-59); Bilirubin,Total 1.2 mg/dL (0.2-1.3); Blood Urea Nitrogen 7 mg/dL (9-20); Calcium 9.3 mg/dL (8.4-10.2); Carbon Dioxide 26 mmol/L (22-30); Chloride 98 mmol/L (98-107); Estimated CRCL calculation 110 ml/min; Estimated Glomerular Filt Rate > 60; Glucose 87 mg/dL (65-110); Potassium 3.5 mmol/L (3.4-5.0); Sodium 133 mmol/L (137-145)
[2021-06-09 07:36] LABS: Amphetamine Screen Urine Negative (Negative); Barbiturate Screen Urine Negative (Negative); Benzodiazepines Screen Urine Negative (Negative); Cannabinoid Screen Urine Negative (Negative); Cocaine Screen Urine Negative (Negative); Methadone Screen Urine Negative (Negative); Opiate Screen Urine Negative (Negative); Phencyclidine Screen Urine Negative (Negative)
--- NOTE | 2021-06-09 07:42 | ED.SKABFB ---
HPI - Skin/Abscess/Foreign Bdy General Chief complaint: Skin/Abscess/Foreign Body Stated complaint: rash Time Seen by Provider: 06/09/21 05:30 Source: patient History of Present Illness HPI narrative: Patient plans with diffuse body rash for rashes been present for approximately a week he was seen by his primary care doctor put on a cream patient is unsure of the name feels like his rash is getting worse he came to the ER for evaluation. Reports his rash is primarily on his abdomen and legs reports a little bit on his neck. Reports his rash is itchy and painful. Denies any urinary symptoms denies any chest pain or shortness of breath denies any abdominal pain. Related Data Home Medications Medication Instructions Recorded Confirmed sertraline 100 mg PO DAILY 11/10/19 01/12/21 Allergies Allergy/AdvReac Type Severity Reaction Status Date / Time No Known Allergies Allergy Mild Verified 06/09/21 06:58 Review of Systems Review of Systems: CONSTITUTIONAL: Denies fever, chills, or sweats. EYES: Denies visual changes, redness, or discharge. ENT: Denies rhinorrhea, congestion, sore throat, or otalgia. CARDIOVASCULAR: Denies chest pain, palpitations, or edema. RESPIRATORY: Denies cough or dyspnea. GASTROINTESTINAL: Denies abdominal pain, nausea, vomiting, or diarrhea. GENITOURINARY: Denies dysuria or hematuria. SKIN: Denies rash or itching. MUSCULOSKELETAL: Denies back pain, joint pain, or myalgia. NEUROLOGIC: Denies headache, numbness, dizziness, or weakness. PSYCHIATRIC: Denies anxiety or depression. All systems reviewed & are unremarkable except as noted in HPI and below PMFSH Past Medical History Medical History Alcoholism Anxiety Depression Deviated septum Esophageal varices GERD (gastroesophageal reflux disease) EGD normal 08/24/19 Hx pulmonary embolism CTA RLL PE 08/20/19 Hypercholesteremia Hypertension Nose fracture Surgical History Surgical History H/O hernia repair x2 History of appendectomy History of total left hip arthroplasty Family History Family History Father Alcoholism Congestive heart failure Mother Cancer Grandparent Diabetes mellitus Social History Social History Social History: Patient lives alone. He resides at [facility]. He is . No children. Alcohol use as mentioned above. He has a history of marijuana, heroin and amphetamine use but no history of IV drug use. He smoked tobacco sporadically but quit in his 30s. He is a [employer] . He did receive his degree after the service in social studies. 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 He lists his ex- to be the individual to make decisions for him if he is unable. Smoking status: Never smoker Second hand tobacco smoke exposure: No Alcohol intake: current Drinks per week: 30 Substance use: unknown Substance use type: does not use Other substance usage details: drinks 1/5 vodka daily Last use: years ago Gender identity (if verbalized by the patient): Male Spiritual care concerns: No Agree to blood products: Yes Exam Narrative: GENERAL: Well-appearing, well-nourished, and in no acute distress. HEAD: Normocephalic, atraumatic. EYES: PERRLA and EOMI. ENT: Nares clear, no rhinorrhea or epistaxis. Mucous membranes moist. NECK: Supple. No masses. No JVD CHEST: Clear to auscultation. No respiratory distress. No wheezes rales or rhonchi HEART: Regular rate and rhythm. No murmur heard. Normal peripheral pulses. ABDOMEN: Soft, nontender, nondistended, normal active bowel sounds. EXTREMITIES: Normal range of motion. No edema. SKIN: Warm, dry, eczematous rash on the abdomen and lower
--- NOTE | 2021-06-09 08:16 | PC.NURSE ---
called cab for pt. [facility] [employer] states they will be on their way.
[2021-06-09 08:19] VITALS: BP 144/100; PULSE 89; RESP 14; O2SAT 99
== END 2021-06-09 08:19 ==
PROVIDERS: Emergency Provider Emergency Medicine
DX: R21 Rash and other nonspecific skin eruption (principal); E78.00 Pure hypercholesterolemia, unspecified; I10 Essential (primary) hypertension; K21.9 Gastro-esophageal reflux disease without esophagitis; F41.9 Anxiety disorder, unspecified; F32.A Depression, unspecified; Z86.711 Personal history of pulmonary embolism; Z96.642 Presence of left artificial hip joint; Z79.899 Other long term (current) drug therapy
CPT/HCPCS: 36415; 80053; 80307; 85025; 96360; 99283; A9270; J7030

== ENCOUNTER 2021-06-27 14:09 | Emergency (ER) | payer MEDICARE, SELFPAY ==
--- NOTE | ~2021-06-27 | XR_ITS ---
XR hip LT min 3V w AP pelvis 06/27/2021 14:41 Indication: Left hip pain after fall Procedure: 4 views left hip Comparison: No prior studies for comparison. Findings: There is a left total hip arthroplasty which is well seated. No acute fracture or traumatic malalignment. Pelvic rings are intact. Sacral foramen are symmetric. Impression: 1: No acute bone or joint abnormality. Reviewed, dictated and finalized at location A. O MATE Impression: 1: No acute bone or joint abnormality.
[2021-06-27 14:11] VITALS: BP 116/81; PULSE 95; RESP 16; TEMP 37.2; O2SAT 93
--- NOTE | 2021-06-27 16:07 | PC.NURSE ---
This nurse gave report to Sandra Avery and notified them the pt would be arriving via ambulance with unknown eta at this time.
--- NOTE | 2021-06-27 16:19 | ED.GENADULT ---
HPI - General Adult General Chief complaint: Extremity Injury, Lower <Roberto Bird PA-C - Last Filed: 06/27/21 16:25> Stated complaint: HIP PAIN X1 WEEK <Roberto Bird PA-C - Last Filed: 06/27/21 16:25> Time Seen by Provider: 06/27/21 14:12 <Roberto Bird PA-C - Last Filed: 06/27/21 16:25> Source: patient <SABAS Arriaza Last Filed: 06/27/21 16:25> Mode of arrival: EMS <SABAS Arriaza Last Filed: 06/27/21 16:25> Limitations: no limitations <SABAS Arriaza Last Filed: 06/27/21 16:25> History of Present Illness HPI narrative: Patient is 71-year-old alcoholic with previous left hip replacement presenting with chief complaint of occasional left hip pain. Patient reports that the representatives at [facility] were concerned see complained about hip pain and popping he may have fallen, but he did not. Patient reports he resides a [facility] due to his alcoholism. Patient denies falling. he denies headache, change in vision or hearing or any other areas of pain or concern. Patient reports he is able to move his leg without difficulty. He states that he is ready to go home. <Roberto Bird PA-C - Last Filed: 06/27/21 16:25> Related Data Home medications: Home Medications Medication Instructions Recorded Confirmed buspirone mg 06/27/21 famotidine 20 mg PO BID 06/27/21 06/27/21 fenofibrate nanocrystallized 145 mg PO DAILY 06/27/21 [Tricor] fluoxetine [Prozac] 40 mg PO DAILY 06/27/21 furosemide 20 mg PO DAILY 06/27/21 multivitamin,tx-minerals [Thera M] 1 tablet PO DAILY 06/27/21 thiamine HCl (vitamin B1) 100 mg PO DAILY 06/27/21 trazodone 100 mg PO HS 06/27/21 06/27/21 <SABAS Arriaza Last Filed: 06/27/21 16:25> Allergies/adverse reactions: Allergies Allergy/AdvReac Type Severity Reaction Status Date / Time No Known Allergies Allergy Mild Verified 06/09/21 06:58 <Roberto Bird PA-C - Last Filed: 06/27/21 16:25> Review of Systems Review of Systems: CONSTITUTIONAL: Denies fever, chills, or sweats. EYES: Denies visual changes, redness, or discharge. ENT: Denies rhinorrhea, congestion, sore throat, or otalgia. CARDIOVASCULAR: Denies chest pain, palpitations, or edema. RESPIRATORY: Denies cough or dyspnea. GASTROINTESTINAL: Denies abdominal pain, nausea, vomiting, or diarrhea. GENITOURINARY: Denies dysuria or hematuria. SKIN: Denies rash or itching. MUSCULOSKELETAL: Reports occasional left hip pain denies back pain, joint pain, or myalgia. NEUROLOGIC: Denies headache, numbness, dizziness, or weakness. PSYCHIATRIC: Denies anxiety or depression. <Roberto Bird PA-C - Last Filed: 06/27/21 16:25> [facility] Past Medical History Medical History: Medical History Alcoholism Anxiety Depression Deviated septum Esophageal varices GERD (gastroesophageal reflux disease) EGD normal 08/24/19 Hx pulmonary embolism CTA RLL PE 08/20/19 Hypercholesteremia Hypertension Nose fracture <Roberto Bird PA-C - Last Filed: 06/27/21 16:25> Surgical History Surgical History: Surgical History H/O hernia repair x2 History of appendectomy History of total left hip arthroplasty <Roberto Bird PA-C - Last Filed: 06/27/21 16:25> Family History Family History: Family History Father Alcoholism Congestive heart failure Mother Cancer Grandparent Diabetes mellitus <Roberto Bird PA-C - Last Filed: 06/27/21 16:25> Social History Social History: Social History Social History: Patient lives alone. He resides at [facility]. He is . No children. Alcohol use as mentioned above. He has a history of marijuana, heroin and amphetamine use but no history of IV drug use. He s
--- NOTE | 2021-06-27 16:21 | PC.NURSE ---
sarah ems accepted return to [facility] ETA 1800 Trip [id number]
--- NOTE | 2021-06-27 16:39 | PC.NURSE ---
Per ER Pleat Taper, Michelle pt ambulance eta is 1800.
[2021-06-27 16:59] VITALS: BP 142/83; PULSE 95
[2021-06-27 17:01] VITALS: BP 132/84; PULSE 90; RESP 20
[2021-06-27 17:45] VITALS: PULSE 93; RESP 14
--- NOTE | 2021-06-27 18:16 | PC.NURSE ---
Pt noted to have gotten out of bed x2 and utilized his call light x 4 times demonstating verbal and visual signs of distress due to waiting for an ems to return him to his skilled living facility. Pt told several times he must wait for an ambulance before he leaves. Pt refused food, drink, bathroom, and blankets at this time.
--- NOTE | 2021-06-27 18:23 | PC.NURSE ---
This nurse called Sandra Avery and gave an updated ETA for the pt. This nurse is still waiting on the EMS that was scheduled for 1800.
== END 2021-06-27 19:05 | disposition home or self-care (01) ==
PROVIDERS: Emergency Provider General Practice
DX: M25.552 Pain in left hip (principal); E78.00 Pure hypercholesterolemia, unspecified; I10 Essential (primary) hypertension; Z86.711 Personal history of pulmonary embolism; K21.9 Gastro-esophageal reflux disease without esophagitis; F32.A Depression, unspecified; F41.9 Anxiety disorder, unspecified; Z96.642 Presence of left artificial hip joint; Z87.891 Personal history of nicotine dependence; F10.20 Alcohol dependence, uncomplicated; Z66 Do not resuscitate
CPT/HCPCS: 73502; 99283

== ENCOUNTER 2022-12-16 08:15 | Outpatient (CLI) | payer MEDICARE, SELFPAY ==
--- NOTE | ~2022-12-16 | CT_ITS ---
EXAMINATION: CTA chest PE protocol DATE: 12/16/2022 08:59 INDICATION: Personal history of pulmonary emboli, cough TECHNIQUE: Computed tomography angiography (CTA) of the chest was performed with 100 mL Omnipaque-350 intravenous contrast timed to evaluate the pulmonary arteries. Coronal maximum intensity projection 3D-reconstructions were created by the technologist. The dose-length product (DLP) was 1000.60 mGy-cm . Automated exposure control and iterative reconstruction technique were employed. COMPARISON: 01/11/2021 FINDINGS: The pulmonary arteries are well-opacified. There is a pulmonary embolus in the right upper lobe. Cardiomegaly is noted. There is volume loss in the left upper lobe. Again noted is a 5.5 cm lef t thyroid nodule which exerts mass effect on the trachea and has been previously evaluated by ultraso und. There is a small right pleural effusion. There are no pathologically enlarged thoracic lymph nod es. There is no pneumothorax. Bilateral gynecomastia is noted. Stones are present in the nondistended gallbladder. There is moderate thoracic spondylosis. Calcifications in the pancreas are consistent w ith chronic pancreatitis. IMPRESSION: 1. Pulmonary embolus in the right upper lobe. This finding was discussed with Peter Ayala NP at 1315 hours on 12/16/2022. Reviewed, dictated and finalized at location A. IMPRESSION: 1. Pulmonary embolus in the right upper lobe. This finding was discussed with Peter Ayala NP at 1315 hours on 12/17/19 23.
[2022-12-16 08:48] LABS: Estimated Glomerular Filt Rate > 60
== END 2022-12-16 08:16 | disposition home or self-care (01) ==
PROVIDERS: PCP Family Medicine; Visit Provider Nurse Practitioner Family
DX: I26.99 Other pulmonary embolism without acute cor pulmonale (principal)
CPT/HCPCS: 71275; Q9967

== ENCOUNTER 2024-05-12 00:57 | Day surgery (SDC) | payer MEDICARE, SELFPAY ==
[2024-05-04 11:11] VITALS: BMI 35.3
--- NOTE | 2024-05-04 11:38 | PC.NURSE ---
Report to the Outpatient Waiting Room, entrance under the green pavilion located off [facility], at time __11:30 AM on date05/12/24 . Planned Procedure Time: _1:30 PM .? Time changes happen often and if your time is changed the preop area will call you the afternoon before. - You and your visitor will be asked to self-screen and do not enter if you have any COVID symptoms. Please call surgeon if you need to reschedule. - A mask is optional within the hospital at this time. Patients may have clear liquids (water, carbonated beverages, clear teas, apple juice) until 3 hours prior to surgery( 10:30 AM) with a maximum of 20 ounces. - No food from midnight until time of surgery and no smoking - Infants may have breast milk until 4 hours before surgery, formula 6 hours prior to surgery. - Children will be allowed to drink immediately following surgery.? If applicable, please bring a bottle or sippy cup to assist with drinking. Juice, water, soda, and popsicles are readily available.? For infants on formula, please bring formula the day of surgery.? Pacifiers are allowed. Take only the following medications with a SIP of water on the morning of surgery: _BUSPIRONE,FLUOXETINE,INHALER IF NEEDED DO NOT STOP ANY OF YOUR OTHER PRESCRIPTION MEDICATIONS PRIOR TO SURGERY EXCEPT THE FOLLOWING Medications to discontinue per physician __ROB PER DR SIMMONS. HOLD ALL VITAMINS AND SUPPLEMENTS 3 DAYS PRE OP.LAST DOSE05/08/24 Please no make-up, nail lithuanian, hairspray, perfume, deodorant, or body powder the day of surgery.? No jewelry (including any body piercings) or valuables the day of surgery, leave them at home.? Please take a shower or bath the night before, or the morning of, surgery with an antibacterial soap.? Wear comfortable, loose fitting clothing.? Children are encouraged to wear pajamas. - Jewelry must be removed prior to entering the operating room.? Rings and piercings that are not removed may be cut off. - The hospital will not accept responsibility for valuables.? - Please leave all valuables, including medications, at home the day of surgery. If you are going home after surgery, a licensed school bus driver/mechanic must drive you home.? - NO public transportation without another adult if you receive anesthesia. - We recommend that an adult stay with you for 24 hours following discharge. - We also recommend that you do not drive, make important decision, drink alcoholic beverages, or take any drugs that were not prescribed by your health care provider for at least 24 hours after your discharge time. Follow any additional instructions given to you from your surgeon. Telephone instructions given to __FAXED TO RAE TRINIDAD 05/04/24 AT 0798 and asked if any additional questions and then verbalized understanding. Patient advised to call surgeon office or pre surgery nurse liaison [phone] if any additional questions.
--- NOTE | 2024-05-12 06:48 | WPDHPUPDATE1 ---
History and Physical Update Update Date/Time: 05/12/24 06:48 History and Physical has been reviewed, including an updated exam of the patient. There are NO changes in the patient's condition. Risks, benefits, and alternatives have been discussed and questions answered. Patient agrees to proceed with procedure.
[2024-05-12 11:49] VITALS: BP 105/74; PULSE 92; RESP 16; TEMP 36.7; O2SAT 97
[2024-05-12 12:30] VITALS: BP 105/74; PULSE 92; RESP 14; TEMP 36.7; O2SAT 97
[2024-05-12] MEDS: LACTATED RINGERS 1,000 ML 30 ML IV CONT (12:30)
--- NOTE | 2024-05-12 13:08 | WPDANESEPPF ---
Anes - Initial Pre Proc Eval Procedure: Operation Date: 05/12/24 13:30 Proposed Procedures p Trans Rectal Ultrasound Fusion Guided Prostate Biopsy - Gregory Truong MD Date/Time: 05/12/24 13:08 Surgeon: Gregory Truong MD Pre Op Diagnosis: elevated PSA Patient Data Age: 73 Gender: M Height: 1.75 m Weight: 108.1 kg Last Vital Signs Temp 36.7 C 05/12/24 11:49 Pulse 92 05/12/24 11:49 Resp 16 05/12/24 11:49 BP 105/74 05/12/24 11:49 Pulse Ox 97 05/12/24 11:49 O2 Del Method Room Air 05/12/24 11:49 Allergies Allergy/AdvReac Type Severity Reaction Status Date / Time lisinopril Allergy Unknown Verified 05/04/24 11:16 Home Medications Medication Instructions Recorded Confirmed Type famotidine 20 mg tablet 20 mg PO BID 06/27/21 05/04/24 History fenofibrate nanocrystallized 145 145 mg PO DAILY 06/27/21 05/04/24 History mg tablet (Tricor) furosemide 20 mg tablet 20 mg PO DAILY 06/27/21 05/04/24 History multivitamin,tx-minerals 1 tablet PO DAILY 06/27/21 05/04/24 History thiamine HCl (vitamin B1) 100 mg 100 mg PO DAILY 06/27/21 05/04/24 History tablet trazodone 100 mg tablet 100 mg PO HS 06/27/21 05/04/24 History acetaminophen 325 mg tablet 650 mg PO PRN PRN Pain 05/04/24 05/04/24 History albuterol sulfate 90 mcg/actuation 2 puff inhalation PRN PRN SOB 05/04/24 05/04/24 History aerosol inhaler apixaban 5 mg tablet (Eliquis) 5 mg PO BID 05/04/24 05/04/24 History buspirone 5 mg tablet 5 mg PO BID 05/04/24 05/04/24 History calcium carbonate (Tums) 200 mg PO PRN PRN Heartburn 05/04/24 05/04/24 History diphenhydramine HCl 25 mg tablet 25 mg PO PRN PRN Itching 05/04/24 05/04/24 History (Benadryl Allergy) fluoxetine 20 mg tablet 20 mg PO DAILY 05/04/24 05/04/24 History loperamide 2 mg capsule 2 mg PO PRN PRN LOOSE STOOLS 05/04/24 05/04/24 History mirabegron 25 mg tablet,extended 25 mg PO DAILY 05/04/24 05/04/24 History release 24 hr (Myrbetriq) triamcinolone acetonide 0.1 % 1 applic topical PRN PRN SCRATCHING 05/04/24 05/04/24 History topical cream Laboratory Tests 05/12/24 12:43 PT Pending INR Pending APTT Pending Patient hx anesthesia problems: none Family hx anesthesia problems: none Results Review: All pre-operative results and documents have been reviewed as part of the pre-operative evaluation. [facility] Past Medical History Medical History Alcoholism Anxiety Depression Deviated septum Esophageal varices GERD (gastroesophageal reflux disease) EGD normal 08/24/19 Hx pulmonary embolism CTA RLL PE 08/20/19 Hypercholesteremia Hypertension Nose fracture Surgical History Surgical History H/O hernia repair x2 History of appendectomy History of total left hip arthroplasty Family History Family History Father Alcoholism Congestive heart failure Mother Cancer Grandparent Diabetes mellitus Social History Social History Social History: Patient lives alone. He resides at [facility] [place], operated by [facility]. He is . No children. Alcohol use as mentioned above. He has a history of marijuana, heroin and amphetamine use but no history of IV drug use. He smoked tobacco sporadically but quit in his 30s. He is a [employer] . He did receive his degree after the service in social studies. 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 He lists his ex- to be the individual to make decisions for him if he is unable. Smoking status: Former smoker Tobacco type: cigarettes Second hand tobacco smoke exposure: No Alcohol intake: former Drinks per week: 30 Alcohol use details: 07/10 VODKA DAILY Substance use: unknown Substance use type: does not use Other substance usage details: drinks 1/5 vodka daily Last use: years ago Living arrangements: custodial Gender identity (if verbalized by the patient): Male Spiritual care concerns: No Agree to blood products: Yes Anes - Eval Final PreProcedure Day of Procedure 05/12/24 13:08 Patient weight: morbidly obese Heart: regular rate and rhythm Lungs: clear to auscultation and normal air movement Airway: Mallampati scale class III Neurological: alert and oriented Last oral intake: >/= 8 hours ASA classification: III Emergent: no Anesthetic plan: proceed Anesthesia type and monitoring: general GIVS and standard monitoring Results Review: All pre-operative results and documents have been reviewed as part of the pre-operative evaluation. Informed Consent: The patient's anesthetic plan and its attendant risks and benefits were discussed with the patient/family/POA. Questions were solicited and answers provided to the satisfaction of the patient/family/POA.
--- NOTE | 2024-05-12 13:34 | W.PM.PROC2 ---
Procedure Note - Detailed Date of Procedure 05/12/24 Pre-op Diagnosis Elevated PSA Post-op Diagnosis Same Procedure Performed UroNav prostate biopsy Surgeon Gregory Truong MD Anesthesia MAC Description of Procedure Patient is brought to the operative suite where he is positioned in the left lateral position. Systemic sedation is administered per the anesthesia department. Surgical time-out is undertaken and it's verified the patient has received preoperative antibiotics. Transrectal ultrasonography is undertaken with a standard transrectal probe. The Robin system is used to superimpose his previously obtained mpMRI prostate images on the real-time transrectal ultrasond images. On the previous mpMRI there are [] regions of interest. Using the transrectal needle design for prostate biopsies 3 cores from each region of interest her obtain. We then proceeded with a standard 12 core prostate biopsy. Transrectal probe was removed and patient taken to recovery room having tolerated the procedure well. Blood loss was less than 0cc.
[2024-05-12 13:37] VITALS: BP 113/71; PULSE 85; RESP 15; O2SAT 99
[2024-05-12 14:00] VITALS: BP 116/76; PULSE 88; RESP 16; O2SAT 96
--- NOTE | 2024-05-12 14:06 | SUR.PHASEII ---
MD Truong contacted - Pt discharge instructions state that he should hold his albuterol until May 14, 2024. Clarification obtained that this was incorrect - per MD Truong, pt should hold his apixaban (Eliquis) until May 14, 2024. Can resume albuterol at anytime. Pt education provided to patient and Sandra Avery. MD Truong also asked if he needed PT/INR, PTT from pre op orders. Lab notified outpatient surgery that specimen was clotted. Pt ok to discharge home without PT/INR or PTT drawn. Will confirm with anesthesia.
--- NOTE | 2024-05-12 14:11 | SUR.PHASEII ---
MD Beach (anesthesia) contacted to notify that lab called outpatient surgery of PT/INR, PTT specimen clotted. MD Beach stated that he does NOT need this lab drawn prior to discharge. Lab notified.
[2024-05-12 14:30] VITALS: BP 105/70; PULSE 79; RESP 16; O2SAT 96
== END 2024-05-12 14:45 | disposition home or self-care (01) ==
PROVIDERS: PCP Family Medicine; Visit Provider Urology
PROC: (CPT 55700; principal; 2024-05-12 13:30)
DX: C61 Malignant neoplasm of prostate (principal); I10 Essential (primary) hypertension; E56.9 Vitamin deficiency, unspecified; E87.6 Hypokalemia; E78.00 Pure hypercholesterolemia, unspecified; D69.6 Thrombocytopenia, unspecified; G25.81 Restless legs syndrome; G47.00 Insomnia, unspecified; K21.9 Gastro-esophageal reflux disease without esophagitis; F33.9 Major depressive disorder, recurrent, unspecified; F41.9 Anxiety disorder, unspecified; G90.09 Other idiopathic peripheral autonomic neuropathy; I47.10 Supraventricular tachycardia, unspecified; E66.01 Morbid (severe) obesity due to excess calories; Z68.35 Body mass index [BMI] 35.0-35.9, adult; Z79.51 Long term (current) use of inhaled steroids; Z79.01 Long term (current) use of anticoagulants; Z98.890 Other specified postprocedural states; Z96.642 Presence of left artificial hip joint; Z87.891 Personal history of nicotine dependence; Z86.711 Personal history of pulmonary embolism; Z87.19 Personal history of other diseases of the digestive system; Z80.41 Family history of malignant neoplasm of ovary; Z82.49 Family history of ischemic heart disease and other diseases of the circulatory system
CPT/HCPCS: 76872; 55700; 36415; 85610; 85730; 88342; G0416; J0696; J2003; J2405; J2704; J3010; J7120

== ENCOUNTER 2024-08-05 12:55 | Inpatient (IN) | payer MEDICARE, SELFPAY ==
--- NOTE | ~2024-08-05 | CT_ITS ---
EXAMINATION: CT abdomen pelvis w con DATE: 08/05/2024 21:00 INDICATION: Cirrhosis of the liver. TECHNIQUE: Computed tomography (CT) of the abdomen and pelvis was performed with 100 mL Omnipaque 350 intravenous contrast. Automated exposure control and iterative reconstruction technique were employe d. The dose-length product was 1545.14 mGy-cm. COMPARISON: CT abdomen and pelvis 01/11/2021, chest CT 12/16/22 FINDINGS: The visualized portions of the lung bases demonstrate chronic right-sided pleural thickenin g with right lower lobe rounded atelectasis. A calcified right lung nodule and calcified right hilar lymph nodes are consistent with old granulomatous disease. No pleural effusion. The heart size is nor mal. There are calcifications in the aortic valve. No pericardial effusion. There is a 10.4 x 7.3 cm hypodense mass in left hepatic lobe with tumor thrombus in left portal vein. There is a 15 mm mass in right hepatic lobe. The gallbladder is contracted. The spleen is normal. There are calcifications in the pancreas, and the pancreatic duct is dilated to 5 mm in the tail of the pancreas, consistent wit h chronic pancreatitis. The adrenal glands are normal. There is 6 mm and 2 mm stones in right kidney. There are cysts in the kidneys measuring up to 5 mm on the right. There is a 5 mm stone in left kidn ey. The prostate is mildly enlarged. There are no dilated loops of bowel. The appendix is not visuali zed. There is hypodense periportal lymphadenopathy measuring up to 2.3 x 1.7 cm. There is no free int raperitoneal fluid. There is a total left hip arthroplasty. There are old healed right rib fractures. There is a chronic compression fracture of L4. There is severe lumbar spondylosis. IMPRESSION: 1. 10.4 cm liver mass, consistent with malignancy such as hepatocellular carcinoma or cholangiocarcin ally. Ultrasound-guided core needle biopsy is recommended. 2. 15 mm liver mass suspicious for metastatic disease. 3. Periportal lymphadenopathy, consistent with metastatic disease. Reviewed, dictated and finalized at location A. TITCHING MACHINE OPERATOR IMPRESSION: 1. 10.4 cm liver mass, consistent with malignancy such as hepatocellular carcin ally or cholangiocarcinoma. Ultrasound-guided core needle biopsy is recommended. 2. 15 mm liver mass suspicious for metastatic disease. 3. Periportal lymphadenopathy, consistent with metastatic disease.
--- NOTE | ~2024-08-05 | US_ITS ---
EXAMINATION: US right upper quadrant DATE: 08/05/2024 15:34 INDICATION: Abnormal liver enzymes TECHNIQUE: Multiple grayscale and Doppler ultrasound images of the abdomen were obtained. COMPARISON: None FINDINGS: Visualized portion of the body the pancreas is normal. The head and tail are obscured by shadowing vee wel gas. Liver has normal echogenicity and contour, with a smooth surface. No liver lesion identified . No intrahepatic biliary duct dilation suspected. Portal venous flow was seen in the hepatopetal, no rmal direction and has normal Doppler waveform. The visualized proximal inferior vena cava is normal. Small amount of sludge and a shadowing gallstone are seen within the partially decompressed gallblad jakob. Sonographic Leigh sign was reported as negative by the admitting office escort.The common bile duct measure s 3 to 4 mm in diameter which is normal. IMPRESSION: 1. Cholelithiasis without biliary ductal dilation or findings of acute cholecystitis. Reviewed, dictated and finalized at location A. OR ADMINISTRATIVE ASSOCIATE IMPRESSION: 1. Cholelithiasis without biliary ductal dilation or findings of acute cholecys titis.
--- NOTE | ~2024-08-05 | MR_ITS ---
EXAMINATION: MR abdomen wo/w con DATE: 08/06/2024 15:27 INDICATION: Concern for hepatocellular carcinoma TECHNIQUE: Magnetic resonance imaging (MRI) of the abdomen was performed without and with 20 mL Multi kiersten intravenous contrast. Sequences included coronal T2-weighted SS-FSE, coronal and axial FS 2D-F IESTA, axial STIR FSE, axial T2-weighted SS-FSE, axial T2-weighted FS SS-FSE, axial diffusion-weighte d SE, axial dual-echo T1-weighted FSPGR, and axial and coronal T1-weighted LAVA. Postcontrast axial T 1-weighted LAVA images were obtained in a time course. Postcontrast coronal T1-weighted LAVA images w ere obtained. COMPARISON: None. FINDINGS: Cardiomegaly. Tiny right pleural effusion with mild atelectasis at the posterior sulcus of the right lower lobe. Additional mild atelectasis at the lingula. There is a large heterogeneously enhancing ma ss measuring approximately 12 x 7 cm filling a large portion of the left hepatic lobe consistent with primary liver cancer. There is mild associated intrahepatic biliary ductal dilation in the left hepa tic lobe. There is a smaller 1.5 cm mass more caudally in segment 5 of the right hepatic lobe which i s suspicious for metastatic disease. There are few low signal intensity gallstones within the decompr essed gallbladder. Spleen, pancreas and left adrenal gland are normal. 11 mm macroscopic fat-containi ng right adrenal myelolipoma. Left kidney is normal. There are couple <5 mm nonenhancing T2 hyperinte nse cysts at the lower pole of the right kidney. Visualized portions of bowels are unremarkable. Mild ly enlarged periportal and portacaval lymph nodes which are suspicious for metastatic disease. There are also a few epiphrenic lymph nodes in the anterior right pericardial fat pad measuring up to 1 cm for which there is also some suspicion for metastatic disease. There is a 1.4 x 1.0 cm subpleural nod ule near the left T9-T10 neural foramen which demonstrates a lower degree of restricted diffusion wit hin the other lymph nodes and more likely to represent a neurogenic schwannoma/neurofibroma. Chronic L4 compression fracture. There is enhancing lesions with loss of normal marrow T1 fat saturation at t he L5 and T10 vertebral bodies suspicious for osseous metastatic disease. Bilateral gynecomastia. IMPRESSION: 1. 12 cm mass occupying a large portion of the left hepatic lobe consistent with malignancy such as h epatocellular carcinoma or cholangiocarcinoma. Would recommend ultrasound-guided liver biopsy. 2. 1.5 cm enhancing nodule in the right hepatic lobe along the mildly enlarged periportal and [place] and right epiphrenic lymph nodes and enhancing lesions in the T10 and L5 vertebral bodies consist ent with metastatic disease. 3. 1.4 x 1.0 cm subpleural and left paravertebral nodule near the T9-T10 neural foramen and would fav or a schwannoma/neurofibroma over additional metastatic lymph node. Reviewed, dictated and finalized at location A. BUILDING SUPERVISOR IMPRESSION: 1. 12 cm mass occupying a large portion of the left hepatic lobe consistent wit h malignancy such as hepatocellular carcinoma or cholangiocarcinoma. Would dav mmend ultrasound-guided liver biopsy. 2. 1.5 cm enhancing nodule in the right hepatic lobe along the mildly enlarged periportal and portacaval and right epiphrenic lymph nodes and enhancing lesion s in the T10 and L5 vertebral bodies consistent with metastatic disease. 3. 1.4 x 1.0 cm subpleural and left paravertebral nodule near the T9-T10 neural foramen and would favor a schwannoma/neurofibroma over additional metastatic l ymph node.
[2024-08-05 12:55] VITALS: BP 113/75; PULSE 97; RESP 16; TEMP 36.6; O2SAT 97
--- OUTSIDE RECORDS SUMMARY | 2024-08-05 12:58 | XMS_ITS | Clinical Summary ---
Author Organization [facility] Address [address] [place] [address] Care Team Providers Care Oil Spraying Machine Operator Name Role Phone Zev Shaw MD Primary Care Provider [phone] Rex Finley MD Unavailable [phone] Source Comments [facility],non-owned Affiliates and Associated Physician Practices is amultiple site organization consisting of ambulatory clinics and hospital sitesin [place], [place], [place] and [place]. This disclosure is being madepursuant to the Care Everywhere program and may not contain all information available regarding this patient. Last updated 18.[facility] Allergies No known active allergies Medications * Be aware that medications may not be up to date on this document. Alwaysverify current medications with the patient. Medication Sig Dispensed Refills Start Date End Date Status furosemide (LASIX) 20 MG tabletIndications:Hy pertension Take 20 mg by mouth once daily Active gemfibrozil (LOPID) 600 MG tabletIndications:Is chemic Heart Disease,Type III Hyperlipidemia Take 600 mg by mouth once daily Reasons: Ischemic Heart Disease, Increased Fats, Triglycerides & Cholesterol in the Blood Active verapamil (ISOPTIN) 120 MG tabletIndications:Pr imary Hypertension (Inactive) Take 240 mg by mouth once daily Active sertraline (ZOLOFT) 100 MG tabletIndications:Ma karime Depressive Disorder Take 1 tablet by mouth once daily Reasons: Major Depressive Disorder 30 tablet 1 08/15/2019 Active Active Problems Problem Noted Date Diagnosed Date Closed fracture of multiple ribs 01/12/2021 Alcohol dependence with withdrawal 08/09/2019 Severe episode of recurrent major depressive disorder, without psychotic features 08/08/2019 Shoulder dislocation, recurrent 09/23/2011 Neck pain 02/07/2011 Immunizations Name Administration Dates Next Due INFLUENZA VACCINE 03/29/2011 Family History Medical History Relation Name Comments Cancer Mother Relation Name Status Comments Father Mother Social History Tobacco Use Types Packs/Day Years Used Date Smoking Tobacco: Former Smokeless Tobacco: Never Tobacco Cessation:Counseling Given: Yes Comments:former smoker Alcohol Use Standard Drinks/Week Comments Yes 0 (1 standard drink = 0.6 oz pur e alcohol) Prior hx of etoh abuse Sex and Gender Information Value Date Recorded Sex Assigned at Not on file Gender Identity Not on file Sexual Orientation Not on file Last Filed Vital Signs Vital Sign Reading Time Taken Comments Blood Pressure 129/73 08/15/2019 7:32 AM BOILER ROOM OPERATOR Pulse 63 08/15/2019 7:32 AM BOILER ROOM OPERATOR Temperature 36.5 ??C (97.7 ??F) 08/15/2019 7:32 AM CS T Respiratory Rate 16 08/15/2019 7:32 AM BOILER ROOM OPERATOR Oxygen Saturation 95% 08/15/2019 7:32 AM BOILER ROOM OPERATOR Inhaled Oxygen Concentration - - Weight 104.3 kg (230 lb) 08/08/2019 7:00 PM BOILER ROOM OPERATOR Height 175.3 cm (5' 9.02 ) 08/08/2019 7:00 PM CS T Body Mass Index 33.95 08/08/2019 7:00 PM BOILER ROOM OPERATOR Plan of Treatment Health Maintenance Due Date Last Done Comments COLOGUARD (AGES 45-75) - COLON CA SCREENING 1950 COLON MONITORING 1950 COLONOSCOPY - COLON CA SCREENING 1950 CT COLONOGRAPHY - COLON CA SCREENING 1950 Colorectal Cancer Screening 1950 FIT - COLON CA SCREENING 1950 FLEX SIG - COLON CA SCREENING 1950 LIPID TESTING 1950 MEDICARE AWV ? 12 MONTHS 1950 HEPATITIS C SCREENING 06/09/1968 DTAP/TDAP/TD VACCINES (1 - Tdap) 1969 PNEUMOCOCCAL VACCINE 50+ (1 of 1 - PCV) 2000 ZOSTER VACCINE (1 of 2) 2000 AAA SCREENING 2015 COVID-19 VACCINE (1 - 2023- season) 2024 INFLUENZA VACCINE (#1) 2024 9, 03/31/2019, 04/08/2018, Additional history exists DEPRESSION SCREENING 07/06/2024 Respiratory Syncytial Virus (RSV) Vaccine Pt: or over 60 yrs (1 - 1-dose 75+ series) 2025 HEPATITIS B VACCINE Aged Out No longe r eligible based on patient's age to complete this topic HIB VACCINE Aged Out No longer eligi ble based on patient's age to complete this topic HPV VACCINE Aged Out No longer eligi ble based on patient's age to complete this topic MENINGOCOCCAL (Group B) VACCINE Aged Out No longer eligible based on patient's age to complete this topic MENINGOCOCCAL VACCINE Aged Out No kameron osmani eligible based on patient's age to complete this topic Advance Directives * Full Code (Latest Code Status on File) Date Activated Date Inactivated Comments 08/08/2019 8:17 PM 08/15/2019 11:41 AM * Full Code Date Activated Date Inactivated Comments 08/08/2019 8:17 PM 08/08/2019 8:17 PM * FULL RESUSCITATION Date Activated Date Inactivated Comments 03/28/2011 3:37 PM 03/29/2011 10:28 PM Care Teams Oil Spraying Machine Operator Relationship Specialty Start Date End Date Zev Shaw MD [address] [facility] [address] [place] [address] PCP - General 02/24/11 Rex Finley MD [address] [facility] [address] [place] [address] Orthopedic Surgery 09/22/11
--- OUTSIDE RECORDS SUMMARY | 2024-08-05 12:58 | XMS_ITS | Encounter Summary ---
Author Organization [facility] Health Address [address] [place] [address] Care Team Providers Care Deputy Director Of Nursing Name Role Phone Zev Shaw MD Primary Care Provider [phone] Rex Finley MD Unavailable [phone] Encounter Details Date Type Department Care Team (Late st Contact Info) Description 03/19/2011 SS Outpatient Visit EXTERNAL NON[facility] [address] [place] [phone] Social History Tobacco Use Types Packs/Day Years Used Date Smoking Tobacco: Every Day Smokeless Tobacco: Never Alcohol Use Standard Drinks/Week Comments No 0 (1 standard drink = 0.6 oz pur e alcohol) Sex and Gender Information Value Date Recorded Sex Assigned at Not on file Gender Identity Not on file Sexual Orientation Not on file documented as of this encounter Plan of Treatment Not on file documented as of this encounter Visit Diagnoses Not on filedocumented in this encounter Care Teams Deputy Director Of Nursing Relationship Specialty Start Date End Date Zev Shaw MD [address] [facility] [address] [place] [address] PCP - General 02/24/11 Rex Finley MD [address] [facility] [address] [place] [phone] Orthopedic Surgery 09/22/11 documented as of this encounter
--- OUTSIDE RECORDS SUMMARY | 2024-08-05 12:58 | XMS_ITS | Encounter Summary ---
Author Organization [facility] Health Address [address] [place] [address] Care Team Providers Care Accounting Machine Operator Name Role Phone Zev Shaw MD Primary Care Provider [phone] Rex Finley MD Unavailable [phone] Encounter Details Date Type Department Care Team (Late st Contact Info) Description 03/25/2011 SS Outpatient Visit EXTERNAL NON[facility] [address] [place] [phone] Social History Tobacco Use Types Packs/Day [...] on filedocumented in this encounter Care Teams Accounting Machine Operator Relationship Specialty Start Date End Date Zev Shaw MD [address] [facility] [address] [place] [address] PCP - General 02/24/11 Rex Finley MD [address] [facility] [address] [place] [phone] Orthopedic Surgery 09/22/11 documented as of this encounter
--- OUTSIDE RECORDS SUMMARY | 2024-08-05 12:59 | XMS_ITS | Referral Summary ---
Author Organization [facility] Address [address] [place] [address] Care Team Providers Care Dampener Operator Name Role Phone Zev Shaw MD Primary Care Provider [phone] Rex Finley MD Unavailable [phone] Source Comments [facility],non-owned Affiliates and Associated Physician Practices is amultiple site organization consisting of ambulatory clinics and hospital sitesin [place], [place], [place]. This disclosure is being madepursuant to the Care Everywhere program and may not contain all information available regarding this patient. Last updated 18.[facility] Allergies No known active allergies Medications * [...] Administration Dates Next Due INFLUENZA VACCINE 03/29/2011 Social History Tobacco Use Types Packs/Day Years [...] Comments Blood Pressure 129/73 08/15/2019 7:32 AM REFRIGERATION INSULATOR Pulse 63 08/15/2019 7:32 AM REFRIGERATION INSULATOR Temperature 36.5 ??C (97.7 ??F) 08/15/2019 7:32 AM CS T Respiratory Rate 16 08/15/2019 7:32 AM REFRIGERATION INSULATOR Oxygen Saturation 95% 08/15/2019 7:32 AM REFRIGERATION INSULATOR Inhaled Oxygen Concentration - - Weight 104.3 kg (230 lb) 08/08/2019 7:00 PM REFRIGERATION INSULATOR Height 175.3 cm (5' 9.02 ) 08/08/2019 7:00 PM CS T Body Mass Index 33.95 08/08/2019 7:00 PM REFRIGERATION INSULATOR Functional Status Functional Status Response Date of Assess ment Is person deaf or have serious hearing difficult y? No 08/08/2019 Is person blind or have serious difficulty seein g? Yes 08/08/2019 Does person have serious dif ficulty walking/climbing stairs? Yes 08/08/2019 Does person have difficulty dressing/bathing? Ye s 08/08/2019 Does person have difficulty doing errands alone? Yes 08/08/2019 Cognitive Status Response Date of Assessm ent Does person have difficulty concentrating/remembering/making decisions? No 08/08/2019 Plan of Treatment Not on file Advance Directives * Full Code (Latest Code Status on File) Date Activated Date Inactivated Comments 08/08/2019 8:17 PM 08/15/2019 11:41 AM * Full Code Date Activated Date Inactivated Comments 08/08/2019 8:17 PM 08/08/2019 8:17 PM * FULL RESUSCITATION Date Activated Date Inactivated Comments 03/28/2011 3:37 PM 03/29/2011 10:28 PM Care Teams Dampener Operator Relationship Specialty Start Date End Date Zev Shaw MD [address] [facility] [address] [place] [phone] PCP - General 02/24/11 Rex Finley MD [address] [facility] [address] [place] [address] Orthopedic Surgery 09/22/11
--- OUTSIDE RECORDS SUMMARY | 2024-08-05 12:59 | XMS_ITS | Patient Health Summary ---
Author Organization [facility] Address [address] [place] [address] Care Team Providers Care Platen Drier Operator Name Role Phone Zev Shaw MD Primary Care Provider [phone] Rex Finley MD Unavailable [phone] Note from [facility],non-owned Affiliates and Associated Physician Practices is amultiple site organization consisting of ambulatory clinics and hospital sitesin [place], [place], [place] and [place]. This disclosure is being madepursuant to the Care Everywhere program and may not contain all information available regarding this patient. Last updated 18.[facility] Allergies No known active allergies Medications * Be aware that medications may not be up to date on this document. Alwaysverify current medications with the patient. * furosemide (LASIX) 20 MG tablet Take 20 mg by mouth once daily * gemfibrozil (LOPID) 600 MG tablet Take 600 mg by mouth once daily Reasons: Ischemic Heart Disease, Increased Fats, Triglycerides & Cholesterol in the Blood * verapamil (ISOPTIN) 120 MG tablet Take 240 mg by mouth once daily * sertraline (ZOLOFT) 100 MG tablet(Started 08/15/2019) Take 1 tablet by mouth once daily Reasons: Major Depressive Disorder 1 refill by 08/14/2020 Active Problems Problem Noted Date Diagnosed Date Closed fracture of multiple ribs 01/12/2021 Alcohol dependence with withdrawal 08/09/2019 Severe episode of recurrent major depressive disorder, without psychotic features 08/08/2019 Shoulder dislocation, recurrent 09/23/2011 Neck pain 02/07/2011 Immunizations * INFLUENZA VACCINE(Given 03/29/2011) Social History Tobacco Use Types Packs/Day Years [...] Comments Blood Pressure 129/73 08/15/2019 7:32 AM COOPERATIVE MANAGER Pulse 63 08/15/2019 7:32 AM COOPERATIVE MANAGER Temperature 36.5 ??C (97.7 ??F) 08/15/2019 7:32 AM CS T Respiratory Rate 16 08/15/2019 7:32 AM COOPERATIVE MANAGER Oxygen Saturation 95% 08/15/2019 7:32 AM COOPERATIVE MANAGER Inhaled Oxygen Concentration - - Weight 104.3 kg (230 lb) 08/08/2019 7:00 PM COOPERATIVE MANAGER Height 175.3 cm (5' 9.02 ) 08/08/2019 7:00 PM CS T Body Mass Index 33.95 08/08/2019 7:00 PM COOPERATIVE MANAGER Procedures * BASIC METABOLIC PANEL (CALCIUM TOTAL)(Performed 08/10/2019) * VITAMIN D 25-HYDROXY(Performed 08/09/2019) * VITAMIN B12(Performed 08/09/2019) * CARDIAC EKG ORDER(Performed 03/31/2011) * CARDIAC ECHOCARDIOGRAM COMPLETE ORDER(Performed 03/31/2011) * CARDIAC EKG ORDER(Performed 03/31/2011) * CARDIAC STRESS TEST ORDER(Performed 03/31/2011) * XR CERVICAL SPINE 1VW(Performed 03/28/2011) Performed for Neck pain * XR CERVICAL SPINE 1VW(Performed 03/28/2011) Performed for Neck pain * TYPE + SCREEN PANEL(Performed 03/28/2011) * HGB HCT PANEL(Performed 03/28/2011) Performed for Preop examination * BASIC METABOLIC PANEL (CALCIUM TOTAL)(Performed 03/28/2011) Performed for Preop examination * XR CERVICAL SPINE 6VW OR MORE(Performed 02/24/2011) Performed for Neck pain * IMAGING/RADIOLOGY/XRAY RESULTS ORDER(Performed 12/26/2010) Results * (ABNORMAL) BASIC METABOLIC PANEL (CALCIUM TOTAL) (08/10/2019 6:38 AM COOPERATIVE MANAGER) Only the most recent of2 resultswithin the time period is included. [facility] Glucose 94 70 - 125 mg/dL 08/10/2019 7:28 AM COOPERATIVE MANAGER [facility] Sodium 141 136 - 145 mmol/L 08/10/2019 7:28 AM [facility] Potassium 3.4 3.4 - 4.5 mmol/L 08/10/2019 7:28 AM [facility] Chloride 106 98 - 107 mmol/L 08/10/2019 7:28 AM [facility] CO2 25 22 - 29 mmol/L 08/10/2019 7:28 AM [facility] Calcium 9.1 8.4 - 10.2 mg/dL 08/10/2019 7:28 AM [facility] Anion Gap 13 10 - 20 mmol/L 08/10/2019 7:28 AM [facility] BUN 6.7(L) 8.4 - 25.7 mg/dL 08/10/2019 7:28 AM [facility] Creatinine 0.67(L) 0.72 - 1.25 mg/dL 08/10/2019 7:28 AM [facility] eGFR by MDRD >60 >60 mL/min/1.7 3m2 08/10/2019 7:28 AM [facility] eGFR by MDRD >60 >60 mL/min/1.7 3m2 08/10/2019 7:28 AM [facility] Blood BLOOD SPECIMEN / Unknown Lab Venipuncture / Unknown 08/10/2019 6:38 AM [facility] 08/10/2019 7:01 AM [facility] Maia Rico Georges FENCE SUPERVISOR-HERB DOCTOR LAB - CHEMISTRY O RDERABLES Performing Organization Address [facility]/State/[facility] de Phone Number [facility] [address] * (ABNORMAL) VITAMIN D 25-HYDROXY (08/09/2019 6:15 AM [facility]) [facility] Vitamin D, 25 Hydroxy 15.1(L) 30 - 100 ng/mL 08/09/2019 7:05 AM [facility] Blood BLOOD SPECIMEN / Unknown Lab Venipuncture / Unknown 08/09/2019 6:15 AM COOPERATIVE MANAGER 08/09/2019 6:21 AM [facility] Narrative [facility] - 08/09/2019 7:05 AM [facility] Reference Values: The recommendation for 25-Hydroxy Vitamin D clinical decision points are as follows: Deficient ?? < 20.0 ng/mL Insufficient ??20.0-29.9 ng/mL Sufficient >= 30.0 ng/mL Reference: The Endocrine Society Clinical Practice Guidelines. 2011 If the 25-Hydroxy Vitamin D results are inconsistent with clinical evidence, it is recommended that follow-up testing using a method such as LC-MS/MS be performed to confirm the result. Shelly Azar MD LAB - CHEMISTRY BRITTANI BROWER Performing Organization Address [facility] Co de Phone Number [facility] [address] * VITAMIN B12 (08/09/2019 6:15 AM COOPERATIVE MANAGER) [facility] Vitamin B12 445 213 - 816 pg/mL 08/09/2019 7:16 AM COOPERATIVE MANAGER [facility] Blood BLOOD SPECIMEN / Unknown Lab Venipuncture / Unknown 08/09/2019 6:15 AM COOPERATIVE MANAGER 08/09/2019 6:21 AM COOPERATIVE MANAGER Shelly Azar MD LAB - CHEMISTRY BRITTANI BROWER Performing Organization Address [facility] de Phone Number [facility] [address] * CARDIAC EKG ORDER (03/31/2011 4:17 PM CDT) Only the most recent of2 resultswithin the time period is included. Narrative Transcriptions Document, Scanned - 03/31/2011 4:17 PM CDT Scanned Document CARDIAC SERVICES ORD ERABLES * CARDIAC STRESS TEST ORDER (03/31/2011 9:02 AM CDT) Narrative Transcriptions Document, Scanned - 03/31/2011 9:02 AM CDT Scanned Document CARDIAC SERVICES ORD ERABLES * CARDIAC ECHOCARDIOGRAM COMPLETE ORDER (03/31/2011 9:02 AM CDT) Narrative Transcriptions Document, Scanned - 03/31/2011 9:02 AM CDT Scanned Document ECHO ORDERABLES * XR CERV SPINE SINGLE VIEW (03/28/2011 12:31 PM CDT) Only the most recent of2 resultswithin the time period is included. Anatomical Region Laterality Modality Spine Radiographic Polly ging 03/28/2011 12:4 6 PM CDT Impressions 03/28/2011 1:10 PM CDT Single level anterior and interbody fusion of the cervical spine. Narrative 03/28/2011 1:10 PM CDT INDICATION: Neck pain. A single lateral crosstable view of the cervical spine is provided. Orogastric tube is in place. There is anterior and interbody fusion at C4-C5. There is marked degenerative change throughout the cervical spine. Procedure Note Lexi Celeste MD - 03/28/2011 INDICATION: Neck pain. A single lateral crosstable view of the cervical spine is provided. Orogastric tube is in place. There is anterior and interbody fusion at C4-C5. There is marked degenerative change throughout the cervical spine. IMPRESSION Single level anterior and interbody fusion of the cervical spine. Roque Leo MD DIAGNOSTIC IMAG ING ORDERABLES * TYPE + SCREEN PANEL (03/28/2011 9:30 AM CDT) ABO Rh O Pos [facility] Antibody Screen Neg Negative [facility] BLOOD SPECIMEN / Unknown 03/28/2011 9:30 AM CDT 03/28/2011 9:41 AM CDT Roque Leo MD LAB - BLOOD BAN K ORDERABLES [facility] [address] [place] [address] * (ABNORMAL) HGB HCT PANEL (03/28/2011 9:30 AM CDT) Hemoglobin 12.3(L) 13.0 - 18.0 gm/dl [facility] Hematocrit 37.9(L) 39.0 - 54.0 % [facility] BLOOD SPECIMEN / Unknown 03/28/2011 9:30 AM CDT 03/28/2011 9:42 AM CDT Manolo Ayala MD LAB - HEMATOLOGY ORD ERABLES [facility] [address] [place] [address] * XR CERVICAL SPINE W OBL AND FLEX/EXT (02/24/2011 5:06 PM CDT) Anatomical Region Laterality Modality Spine Radiographic Polly ging 02/24/2011 5:33 PM CDT Narrative 02/24/2011 6:36 PM CDT SEVEN VIEWS CERVICAL SPINE WITH FLEXION AND EXTENSION INDICATION: Neck pain. FINDINGS: There is grade 1 anterolisthesis of C4 on C5 which is worse on flexion and slightly improved on extension compatible with motion at this site. There are no other sites of cervical motion. There is moderate degenerative disc disease at C6-C7. There is mild to moderate degenerative disc disease at C5-C6. There is moderate bilateral facet arthropathy at C4 through T1. There is moderate left-sided facet arthropathy at C3-C4. Foraminal impingement is noted on the left at C3-C4. Foraminal impingement is present on the right at C3-C4, C4-C5, and C5-C6. Procedure Note Ramana Garrido MD - 02/24/2011 SEVEN VIEWS CERVICAL SPINE WITH FLEXION AND EXTENSION INDICATION: Neck pain. FINDINGS: There is grade 1 anterolisthesis of C4 on C5 which is worse on flexion and slightly improved on extension compatible with motion at this site. There are no other sites of cervical motion. There is moderate degenerative disc disease at C6-C7. There is mild to moderate degenerative disc disease at C5-C6. There is moderate bilateral facet arthropathy at C4 through T1. There is moderate left-sided facet arthropathy at C3-C4. Foraminal impingement is noted on the left at C3-C4. Foraminal impingement is present on the right at C3-C4, C4-C5, and C5-C6. Roque Leo MD DIAGNOSTIC IMAG ING ORDERABLES * IMAGING/RADIOLOGY/XRAY RESULTS ORDER (12/26/2010) Anatomical Region Laterality Modality Other Ulises Henley DO IMAGING Care Teams Platen Drier Operator Relationship Specialty Start Date End Date Zev Shaw MD [address] [facility] [address] [address] PCP - General 02/24/11 Rex Finley MD [address] [facility] [address] [place] [address] Orthopedic Surgery 09/22/11
--- NOTE | 2024-08-05 14:42 | ED.ABDPAIN ---
HPI - Abdominal Pain General Chief Complaint: Abdominal Pain <Lizet Quinones PA-C - Last Filed: 08/07/24 00:51> Stated Complaint: juandice ETOH cirrhosis <Lizet Quinones PA-C - Last Filed: 08/07/24 00:51> Time Seen by Provider: 08/05/24 14:42 <Lizet Quinones PA-C - Last Filed: 08/07/24 00:51> Focused HPI: This is a 74 year old male that presents to the ER for jaundice. Reports difficulty with urination, stools, right lower back pain. History of alcoholic cirrhosis. Had abnormal blood work yesterday at his facility which concerned them and prompted him to be seen. Reports elevated bilirubin. GENERAL: Jaundice, well-nourished, and in no acute distress. HEAD: Normocephalic, atraumatic. CHEST: Clear to auscultation. ?No respiratory distress. HEART: Regular rate and rhythm.? NEURO: ?Alert and oriented x3. Patient screened in triage and initial orders placed.? ?Additional care and disposition to be based upon?diagnostic testing and treatment. <Lizet Quinones PA-C - Last Filed: 08/07/24 00:51> History of Present Illness HPI narrative: I agree with the above HPI <Flakito Manzano MD - Last Filed: 08/13/24 07:46> Related Data Home Medications: Home Medications ?Medication ?Instructions ?Recorded ?Confirmed ?Last Taken ?Type famotidine 20 mg tablet 20 mg PO BID 06/27/21 08/06/24 08/05/24 History fenofibrate nanocrystallized 145 145 mg PO DAILY 06/27/21 08/06/24 08/05/24 History mg tablet (Tricor) furosemide 20 mg tablet 20 mg PO DAILY 06/27/21 08/06/24 08/05/24 History multivitamin,tx-minerals 1 tablet PO DAILY 06/27/21 08/06/24 06/26/21 History thiamine HCl (vitamin B1) 100 mg 100 mg PO DAILY 06/27/21 08/06/24 08/05/24 History tablet trazodone 100 mg tablet 100 mg PO HS 06/27/21 08/06/24 08/04/24 History acetaminophen 325 mg tablet 650 mg PO Q6H PRN Pain 10/30/24 02/01/25 01/08/25 History apixaban 5 mg tablet (Eliquis) 5 mg PO BID 05/04/24 08/06/24 08/05/24 History buspirone 5 mg tablet 5 mg PO BID 05/04/24 08/06/24 08/05/24 History calcium carbonate (Tums) 200 mg PO Q6H PRN Heartburn 05/04/24 08/06/24 07/27/24 History diphenhydramine HCl 25 mg tablet 25 mg PO BID PRN Itching 05/04/24 08/06/24 07/25/24 History (Benadryl Allergy) fluoxetine 20 mg tablet 20 mg PO DAILY 05/04/24 08/06/24 08/05/24 History loperamide 2 mg capsule 2 mg PO Q6H PRN LOOSE STOOLS 05/04/24 08/06/24 06/29/24 History mirabegron 25 mg tablet,extended 50 mg PO HS 05/04/24 08/06/24 08/04/24 History release 24 hr (Myrbetriq) triamcinolone acetonide 0.1 % 1 applic topical BID PRN SCRATCHING 05/04/24 08/06/24 Unknown History topical cream multivitamin with folic acid 400 1 tablet PO DAILY 08/06/24 08/06/24 08/05/24 History mcg tablet (Therems Multivitamin) tamsulosin 0.4 mg capsule 0.4 mg PO DAILY 08/06/24 08/06/24 08/04/24 History <Lizet Quinones PA-C - Last Filed: 08/07/24 00:51> Allergies/Adverse Reactions: Allergies Allergy/AdvReac Type Severity Reaction Status Date / Time lisinopril Allergy Unknown Verified 08/01/24 16:18 <Lizet Quinones PA-C - Last Filed: 08/07/24 00:51> Review of Systems Review of Systems: All systems reviewed & are unremarkable except as noted in HPI and below <Lizet Quinones PA-C - Last Filed: 08/07/24 00:51> PENDING SALE TO [facility] Past Medical History Medical History: Medical History Hx pulmonary embolism CTA RLL PE 08/20/19 Alcoholism Anxiety Depression Nose fracture GERD (gastroesophageal reflux disease) EGD normal 08/24/19 Esophageal varices Hypertension Hypercholesteremia Deviated septum <Lizet Quinones PA-C - Last Filed: 08/07/24 00:51> Surgical History Surgical History: Surgical History History of total left hip arthroplasty H/O hernia repair x2 History of appendectomy <Lizet Quinones PA-C - Last Filed: 08/07/24 00:51> Family History Family History: Family History Father Alcoholism Congestive heart failure Mother Cancer Grandparent Diabetes mellitus <Lizet Quinones PA-C - Last Filed: 08/07/24 00:51> Social History Social History: Social History Social History: Patient lives alone. He resides at [facility]. He is . No children. Alcohol use as mentioned above. He has a history of marijuana, heroin and amphetamine use but no history of IV drug use. He smoked tobacco sporadically but quit in his 30s. He is a [employer] . He did receive his degree after the service in social studies. 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 He lists his ex- to be the individual to make decisions for him if he is unable. Smoking status: Former smoker Tobacco type: cigarettes Second hand tobacco smoke exposure: No Alcohol intake: former Drinks per week: 30 Alcohol use details: 1/5 VODKA DAILY Substance use: never Substance use type: does not use Other substance usage details: drinks 1/5 vodka daily Last use: years ago Do You Feel Safe in your Home?: Yes Lack of Transportation: No Lack of Food: Never True Current Housing: I Have Housing Concerned About Future Housing: No Difficulty Paying Gas/Electric Bills: No Difficulty Paying for Meds: No Currently Unemployed: No Education: Master's Degree or Higher Difficulty w/ Childcare or Family Care: No Living arrangements: detention Gender identity (if verbalized by the patient): Male Spiritual care concerns: No Agree to blood products: Yes <Lizet Quinones PA-C - Last Filed: 08/07/24 00:51> Exam Narrative: APPEARANCE: Well appearing, no pain, no distress, well-nourished. HEAD: normocephalic, atraumatic. EYES: PERRLA/EOMI, conjunctivae clear. NOSE: Normal no drainage EARS:TMS clear with good light reflex. THROAT: Pharynx clear, no exudate. NECK: Supple. No adenopathy, no masses. RESPIRATORY: Airway patent, respirations nonlabored. Clear to auscultation bilaterally, no rales, rhonchi, wheezing. CARDIOVASCULAR: Regular rate and rhythm without murmurs rubs or gallops. ABDOMINAL: Soft, nontender, nondistended, normal bowel sounds MUSCULOSKELETAL: Moves all extremities. Strength/ROM intact, No edema, No calf tenderness. NEURO: Alert. Cranial nerves II through XII intact. Grossly intact SKIN: Jaundiced <Flakito Manzano MD - Last Filed: 08/13/24 07:46> Course Vital Signs Vital signs: Vital Signs Temperature 97.9 F 08/05/24 12:55 Pulse Rate 97 08/05/24 12:55 Respiratory Rate 16 08/05/24 12:55 Blood Pressure 113/75 08/05/24 12:55 Pulse Oximetry 97 08/05/24 12:55 Oxygen Delivery Room Air 08/05/24 12:55 Temperature 96.8 F L 08/07/24 14:00 Pulse Rate 68 08/07/24 14:00 Respiratory Rate 18 08/07/24 14:00 Blood Pressure 133/43 L 08/07/24 14:00 Pulse Oximetry 95 08/07/24 14:00 Oxygen Delivery Room Air 08/07/24 11:57 <Lizet Quinones PA-C - Last Filed: 08/07/24 00:51> Vital Signs Temperature 97.9 F 08/05/24 12:55 Pulse Rate 97 08/05/24 12:55 Respiratory Rate 16 08/05/24 12:55 Blood Pressure 113/75 08/05/24 12:55 Pulse Oximetry 97 08/05/24 12:55 Oxygen Delivery Room Air 08/05/24 12:55 Temperature 96.8 F L 08/07/24 14:00 Pulse Rate 68 08/07/24 14:00 Respiratory Rate 18 08/07/24 14:00 Blood Pressure 133/43 L 08/07/24 14:00 Pulse Oximetry 95 08/07/24 14:00 Oxygen Delivery Room Air 08/07/24 11:57 <Flakito Manzano MD - Last Filed: 08/13/24 07:46> MDM - Abdominal Pain MDM Narrative Medical decision making narrative: 74-year-old male with history of alcohol dependence presented emergency department for evaluation for acute jaundice. Patient does have a total bilirubin of 14. CT of abdomen is concerning for liver mass. GI was consulted and recommended the patient stay for MRI. Patient and family were updated on the results of the imaging and suggested admission plan for MRI. All questions concerns were addressed. <Flakito Manzano MD - Last Filed: 08/13/24 07:46> Differential Diagnosis Differential diagnosis: Likely acute appendicitis, diverticulitis, gastroenteritis, pancreatitis and small bowel obstruction <Flakito Manzano MD - Last Filed: 08/13/24 07:46> Lab Data Attestation: I reviewed the patient's lab results. <Flakito Manzano MD - Last Filed: 08/13/24 07:46> Result diagrams: 08/07/24 06:51 08/07/24 06:51 <Lizet Quinones PA-C - Last Filed: 08/07/24 00:51> Labs: Lab Results 08/05/24 08/05/24 08/05/24 Range/Units 16:44 20:09 22:49 WBC 9.0 (4.5-10.0) K/mm3 RBC 4.59 L (4.6-6.20) M/mm3 Hgb 15.0 (14.0-18.0) g/dL Hct 44.6 (42.0-52.0) % MCV 97.2 (80-100) fl MCH 32.7 (26-34) pg MCHC 33.6 (32-36) g/dl RDW 18.3 H (11.5-14.5) % Plt Count 235 (150-375) k/mm3 MPV 10.7 H (7.4-10.4) fl Immature Gran % (Auto) 1.1 H (0-0.5) % Neut % (Auto) 66.0 (45.5-73.1) % Lymph % (Auto) 17.1 L (18.3-44.2) % Gladwin % (Auto) 14.1 H (2.6-8.5) % Eos % (Auto) 1.0 (0-4.4) % Baso % (Auto) 0.7 (0.2-1.2) % Lymph # (Auto) 1.54 (0.9-3.2) K/mm3 Gladwin # (Auto) 1.3 H (0.1-0.6) K/mm3 Eos # (Auto) 0.1 (0-0.3) K/mm3 Baso # (Auto) 0.1 (0.0-0.1) K/mm3 Abs Immat Gran (auto) 0.10 H (0.00-0.031) K/mm3 Absolute Neuts (auto) 5.9 (1.3-6.7) K/mm3 Absolute Nucleated RBC 0.000 (0.0-0.012) K/mm3 Nucleated RBC % 0.0 (0.0-0.2) % Haptoglobin (43-212) mg/dL PT 19.7 H (11.1-14.7) Seconds INR 1.6 APTT 34.9 (22.3-36.8) Seconds Sodium 136 L (137-145) mmol/L Potassium 3.8 (3.4-5.0) mmol/L Chloride 103 (98-107) mmol/L Carbon Dioxide 26 (22-30) mmol/L Anion Gap 7 (4-12) mmol/L BUN 10 (9-20) mg/dL Creatinine 0.56 L (0.7-1.3) mg/dL Estim Creat Clear Calc Not Reportable Estimated GFR > 60 (59 - ) Glucose 120 H (65-110) mg/dL Calcium 9.7 (8.4-10.2) mg/dL Total Bilirubin 14.9 H (0.2-1.3) mg/dL GGT (3-70) U/L AST 75 H (17-59) U/L ALT 20 (6-50) U/L Alkaline Phosphatase 262 H (38-126) U/L Ammonia 23 (9-30) umol/L Lactate Dehydrogenase (120-246) U/L Total Protein 8.0 (6.3-8.2) g/dL Albumin 3.2 L (3.5-5.1) g/dL Lipase 68 (23-300) U/L Alpha Fetoprotein (<6.1) ng/mL Urine Color Dark yellow (Yellow) Urine Appearance Turbid H (Clear) Urine pH 5.5 (5.0-9.0) Ur Specific Fox[place] 1.023 (1.001-1.035) Urine Protein 1+ H (Negative) mg/dL Urine Glucose (UA) Negative (Negative) mg/dL Urine Ketones Negative (Negative) mg/dL Ur Blood (Man) 3+ H (Negative) Urine Nitrate Positive H (Negative) Urine Bilirubin 3+ H (Negative) Urine Urobilinogen 0.2 (<2.0) mg/dL Add Ur Microanalysis Reviewed Leukocyte Esterase Rfl 1+ H (Negative) ANTHONY/UL Urine RBC 11-20 H (0-2) /hpf Urine WBC 0-5 (0-3) /hpf Ur Squamous Epith Cells None seen (Few) /hpf Urine Bacteria Rare /hpf Urine Casts 0-2 Urine Mucus Present /lpf Hepatitis A IgM Ab (Negative) Hep Bs Antigen (Negative) Hep B Core IgM Ab (Negative) Hepatitis C Ab Screen (Negative) Influenza A (RT-PCR) Negative (Negative) Influenza B (RT-PCR) Negative (Negative) RSV (RT-PCR) Negative (Negative) SARS-CoV-2 RNA (RT-PCR) Negative (Negative) 08/06/24 08/06/24 08/06/24 Range/Units 00:42 08:30 10:43 WBC 9.2 (4.5-10.0) K/mm3 RBC 4.42 L (4.6-6.20) M/mm3 Hgb 14.0 (14.0-18.0) g/dL Hct 42.3 (42.0-52.0) % MCV 95.7 (80-100) fl MCH 31.7 (26-34) pg MCHC 33.1 (32-36) g/dl RDW 18.7 H (11.5-14.5) % Plt Count 224 (150-375) k/mm3 MPV 11.4 H (7.4-10.4) fl Immature Gran % (Auto) 1.0 H (0-0.5) % Neut % (Auto) 68.2 (45.5-73.1) % Lymph % (Auto) 15.7 L (18.3-44.2) % Gladwin % (Auto) 13.3 H (2.6-8.5) % Eos % (Auto) 1.1 (0-4.4) % Baso % (Auto) 0.7 (0.2-1.2) % Lymph # (Auto) 1.44 (0.9-3.2) K/mm3 Gladwin # (Auto) 1.2 H (0.1-0.6) K/mm3 Eos # (Auto) 0.1 (0-0.3) K/mm3 Baso # (Auto) 0.1 (0.0-0.1) K/mm3 Abs Immat Gran (auto) 0.09 H (0.00-0.031) K/mm3 Absolute Neuts (auto) 6.3 (1.3-6.7) K/mm3 Absolute Nucleated RBC 0.000 (0.0-0.012) K/mm3 Nucleated RBC % 0.0 (0.0-0.2) % Haptoglobin 39 L (43-212) mg/dL PT (11.1-14.7) Seconds INR APTT (22.3-36.8) Seconds Sodium 135 L (137-145) mmol/L Potassium 4.2 (3.4-5.0) mmol/L Chloride 103 (98-107) mmol/L Carbon Dioxide 24 (22-30) mmol/L Anion Gap 8 (4-12) mmol/L BUN 10 (9-20) mg/dL Creatinine 0.44 L (0.7-1.3) mg/dL Estim Creat Clear Calc 146 Estimated GFR > 60 (59 - ) Glucose 107 (65-110) mg/dL Calcium 9.2 (8.4-10.2) mg/dL Total Bilirubin 14.3 H (0.2-1.3) mg/dL GGT 147 H (3-70) U/L AST 76 H (17-59) U/L ALT 18 (6-50) U/L Alkaline Phosphatase 229 H (38-126) U/L Ammonia (9-30) umol/L Lactate Dehydrogenase 198 (120-246) U/L Total Protein 7.0 (6.3-8.2) g/dL Albumin 2.7 L (3.5-5.1) g/dL Lipase (23-300) U/L Alpha Fetoprotein 8.6 H (<6.1) ng/mL Urine Color (Yellow) Urine Appearance (Clear) Urine pH (5.0-9.0) Ur Specific Foxworth (1.001-1.035) Urine Protein (Negative) mg/dL Urine Glucose (UA) (Negative) mg/dL Urine Ketones (Negative) mg/dL Ur Blood (Man) (Negative) Urine Nitrate (Negative) Urine Bilirubin (Negative) Urine Urobilinogen (<2.0) mg/dL Add Ur Microanalysis Leukocyte Esterase Rfl (Negative) ANTHONY/UL Urine RBC (0-2) /hpf Urine WBC (0-3) /hpf Ur Squamous Epith Cells (Few) /hpf Urine Bacteria /hpf Urine Casts Urine Mucus /lpf Hepatitis A IgM Ab Negative (Negative) Hep Bs Antigen Negative (Negative) Hep B Core IgM Ab Negative (Negative) Hepatitis C Ab Screen Negative (Negative) Influenza A (RT-PCR) (Negative) Influenza B (RT-PCR) (Negative) RSV (RT-PCR) (Negative) SARS-CoV-2 RNA (RT-PCR) (Negative) <Lizet Quinones PA-C - Last Filed: 08/07/24 00:51> Lab Results 08/05/24 08/05/24 08/05/24 Range/Units 16:44 20:09 22:49 WBC 9.0 (4.5-10.0) K/mm3 RBC 4.59 L (4.6-6.20) M/mm3 Hgb 15.0 (14.0-18.0) g/dL Hct 44.6 (42.0-52.0) % MCV 97.2 (80-100) fl MCH 32.7 (26-34) pg MCHC 33.6 (32-36) g/dl RDW 18.3 H (11.5-14.5) % Plt Count 235 (150-375) k/mm3 MPV 10.7 H (7.4-10.4) fl Immature Gran % (Auto) 1.1 H (0-0.5) % Neut % (Auto) 66.0 (45.5-73.1) % Lymph % (Auto) 17.1 L (18.3-44.2) % Gladwin % (Auto) 14.1 H (2.6-8.5) % Eos % (Auto) 1.0 (0-4.4) % Baso % (Auto) 0.7 (0.2-1.2) % Lymph # (Auto) 1.54 (0.9-3.2) K/mm3 Gladwin # (Auto) 1.3 H (0.1-0.6) K/mm3 Eos # (Auto) 0.1 (0-0.3) K/mm3 Baso # (Auto) 0.1 (0.0-0.1) K/mm3 Abs Immat Gran (auto) 0.10 H (0.00-0.031) K/mm3 Absolute Neuts (auto) 5.9 (1.3-6.7) K/mm3 Absolute Nucleated RBC 0.000 (0.0-0.012) K/mm3 Nucleated RBC % 0.0 (0.0-0.2) % Haptoglobin (43-212) mg/dL PT 19.7 H (11.1-14.7) Seconds INR 1.6 APTT 34.9 (22.3-36.8) Seconds Sodium 136 L (137-145) mmol/L Potassium 3.8 (3.4-5.0) mmol/L Chloride 103 (98-107) mmol/L Carbon Dioxide 26 (22-30) mmol/L Anion Gap 7 (4-12) mmol/L BUN 10 (9-20) mg/dL Creatinine 0.56 L (0.7-1.3) mg/dL Estim Creat Clear Calc Not Reportable Estimated GFR > 60 (59 - ) Glucose 120 H (65-110) mg/dL Calcium 9.7 (8.4-10.2) mg/dL Total Bilirubin 14.9 H (0.2-1.3) mg/dL GGT (3-70) U/L AST 75 H (17-59) U/L ALT 20 (6-50) U/L Alkaline Phosphatase 262 H (38-126) U/L Ammonia 23 (9-30) umol/L Lactate Dehydrogenase (120-246) U/L Total Protein 8.0 (6.3-8.2) g/dL Albumin 3.2 L (3.5-5.1) g/dL Lipase 68 (23-300) U/L Alpha Fetoprotein (<6.1) ng/mL Urine Color Dark yellow (Yellow) Urine Appearance Turbid H (Clear) Urine pH 5.5 (5.0-9.0) Ur Specific [place] 1.023 (1.001-1.035) Urine Protein 1+ H (Negative) mg/dL Urine Glucose (UA) Negative (Negative) mg/dL Urine Ketones Negative (Negative) mg/dL Ur Blood (Man) 3+ H (Negative) Urine Nitrate Positive H (Negative) Urine Bilirubin 3+ H (Negative) Urine Urobilinogen 0.2 (<2.0) mg/dL Add Ur Microanalysis Reviewed Leukocyte Esterase Rfl 1+ H (Negative) ANTHONY/UL Urine RBC 11-20 H (0-2) /hpf Urine WBC 0-5 (0-3) /hpf Ur Squamous Epith Cells None seen (Few) /hpf Urine Bacteria Rare /hpf Urine Casts 0-2 Urine Mucus Present /lpf Hepatitis A IgM Ab (Negative) Hep Bs Antigen (Negative) Hep B Core IgM Ab (Negative) Hepatitis C Ab Screen (Negative) Influenza A (RT-PCR) Negative (Negative) Influenza B (RT-PCR) Negative (Negative) RSV (RT-PCR) Negative (Negative) SARS-CoV-2 RNA (RT-PCR) Negative (Negative) 08/06/24 08/06/24 08/06/24 Range/Units 00:42 08:30 10:43 WBC 9.2 (4.5-10.0) K/mm3 RBC 4.42 L (4.6-6.20) M/mm3 Hgb 14.0 (14.0-18.0) g/dL Hct 42.3 (42.0-52.0) % MCV 95.7 (80-100) fl MCH 31.7 (26-34) pg MCHC 33.1 (32-36) g/dl RDW 18.7 H (11.5-14.5) % Plt Count 224 (150-375) k/mm3 MPV 11.4 H (7.4-10.4) fl Immature Gran % (Auto) 1.0 H (0-0.5) % Neut % (Auto) 68.2 (45.5-73.1) % Lymph % (Auto) 15.7 L (18.3-44.2) % Glad[place] % (Auto) 13.3 H (2.6-8.5) % Eos % (Auto) 1.1 (0-4.4) % Baso % (Auto) 0.7 (0.2-1.2) % Lymph # (Auto) 1.44 (0.9-3.2) K/mm3 [place] # (Auto) 1.2 H (0.1-0.6) K/mm3 Eos # (Auto) 0.1 (0-0.3) K/mm3 Baso # (Auto) 0.1 (0.0-0.1) K/mm3 Abs Immat Gran (auto) 0.09 H (0.00-0.031) K/mm3 Absolute Neuts (auto) 6.3 (1.3-6.7) K/mm3 Absolute Nucleated RBC 0.000 (0.0-0.012) K/mm3 Nucleated RBC % 0.0 (0.0-0.2) % Haptoglobin 39 L (43-212) mg/dL PT (11.1-14.7) Seconds INR APTT (22.3-36.8) Seconds Sodium 135 L (137-145) mmol/L Potassium 4.2 (3.4-5.0) mmol/L Chloride 103 (98-107) mmol/L Carbon Dioxide 24 (22-30) mmol/L Anion Gap 8 (4-12) mmol/L BUN 10 (9-20) mg/dL Creatinine 0.44 L (0.7-1.3) mg/dL Estim Creat Clear Calc 146 Estimated GFR > 60 (59 - ) Glucose 107 (65-110) mg/dL Calcium 9.2 (8.4-10.2) mg/dL Total Bilirubin 14.3 H (0.2-1.3) mg/dL GGT 147 H (3-70) U/L AST 76 H (17-59) U/L ALT 18 (6-50) U/L Alkaline Phosphatase 229 H (38-126) U/L Ammonia (9-30) umol/L Lactate Dehydrogenase 198 (120-246) U/L Total Protein 7.0 (6.3-8.2) g/dL Albumin 2.7 L (3.5-5.1) g/dL Lipase (23-300) U/L Alpha Fetoprotein 8.6 H (<6.1) ng/mL Urine Color (Yellow) Urine Appearance (Clear) Urine pH (5.0-9.0) Ur Specific [place] (1.001-1.035) Urine Protein (Negative) mg/dL Urine Glucose (UA) (Negative) mg/dL Urine Ketones (Negative) mg/dL Ur Blood (Man) (Negative) Urine Nitrate (Negative) Urine Bilirubin (Negative) Urine Urobilinogen (<2.0) mg/dL Add Ur Microanalysis Leukocyte Esterase Rfl (Negative) ANTHONY/UL Urine RBC (0-2) /hpf Urine WBC (0-3) /hpf Ur Squamous Epith Cells (Few) /hpf Urine Bacteria /hpf Urine Casts Urine Mucus /lpf Hepatitis A IgM Ab Negative (Negative) Hep Bs Antigen Negative (Negative) Hep B Core IgM Ab Negative (Negative) Hepatitis C Ab Screen Negative (Negative) Influenza A (RT-PCR) (Negative) Influenza B (RT-PCR) (Negative) RSV (RT-PCR) (Negative) SARS-CoV-2 RNA (RT-PCR) (Negative) <Flakito Manzano MD - Last Filed: 08/13/24 07:46> Imaging Data Radiologist's impression: ITS Impressions Upper Quadrant Ultrasound 08/05/24 16:07 IMPRESSION: 1. Cholelithiasis without biliary ductal dilation or findings of acute cholecystitis. Abdomen/Pelvis CT 08/05/24 21:03 IMPRESSION: 1. 10.4 cm liver mass, consistent with malignancy such as hepatocellular carcinoma or cholangiocarcinoma. Ultrasound-guided core needle biopsy is recommended. 2. 15 mm liver mass suspicious for metastatic disease. 3. Periportal lymphadenopathy, consistent with metastatic disease. Abdomen MRI 08/07/24 07:11 IMPRESSION: 1. 12 cm mass occupying a large portion of the left hepatic lobe consistent with malignancy such as hepatocellular carcinoma or cholangiocarcinoma. Would recommend ultrasound-guided liver biopsy. 2. 1.5 cm enhancing nodule in the right hepatic lobe along the mildly enlarged periportal and portacaval and right epiphrenic lymph nodes and enhancing lesions in the T10 and L5 vertebral bodies consistent with metastatic disease. 3. 1.4 x 1.0 cm subpleural and left paravertebral nodule near the T9-T10 neural foramen and would favor a schwannoma/neurofibroma over additional metastatic lymph node. <Lizet Quinones PA-C - Last Filed: 08/07/24 00:51> ITS Impressions Upper Quadrant Ultrasound 08/05/24 16:07 IMPRESSION: 1. Cholelithiasis without biliary ductal dilation or findings of acute cholecystitis. Abdomen/Pelvis CT 08/05/24 21:03 IMPRESSION: 1. 10.4 cm liver mass, consistent with malignancy such as hepatocellular carcinoma or cholangiocarcinoma. Ultrasound-guided core needle biopsy is recommended. 2. 15 mm liver mass suspicious for metastatic disease. 3. Periportal lymphadenopathy, consistent with metastatic disease. Abdomen MRI 08/07/24 07:11 IMPRESSION: 1. 12 cm mass occupying a large portion of the left hepatic lobe consistent with malignancy such as hepatocellular carcinoma or cholangiocarcinoma. Would recommend ultrasound-guided liver biopsy. 2. 1.5 cm enhancing nodule in the right hepatic lobe along the mildly enlarged periportal and portacaval and right epiphrenic lymph nodes and enhancing lesions in the T10 and L5 vertebral bodies consistent with metastatic disease. 3. 1.4 x 1.0 cm subpleural and left paravertebral nodule near the T9-T10 neural foramen and would favor a schwannoma/neurofibroma over additional metastatic lymph node. <Flakito Manzano MD - Last Filed: 08/13/24 07:46> Critical Care Time Critical Care Time Critical Care Time: No <Lizet Quinones PA-C - Last Filed: 08/07/24 00:51> Discharge Plan Discharge Clinical Impression: Liver mass, Hyperbilirubinemia <Lizet Quinones PA-C - Last Filed: 08/07/24 00:51> Patient Disposition: Still a Patient <Lizet Quinones PA-C - Last Filed: 08/07/24 00:51> Condition: Serious <SBAAS [place] Last Filed: 08/07/24 00:51>
--- OUTSIDE RECORDS SUMMARY | 2024-08-05 14:54 | XMS_ITS | Encounter Summary ---
Author Organization [facility] Health Address [address] [place] [address] Care Team Providers Care Door Captain Name Role Phone Zev Shaw MD Primary Care Provider [phone] Rex Finley MD Unavailable [phone] Encounter Details Date Type Department Care Team (Late st Contact Info) Description 03/25/2011 SS Outpatient Visit EXTERNAL NON[facility] [address] [place] [phone] Social History Tobacco Use Types Packs/Day [...] on filedocumented in this encounter Care Teams Door Captain Relationship Specialty Start Date End Date Zev Shaw MD [address] [facility] [address] [place] [address] PCP - General 02/24/11 Rex Finley MD [address] [facility] [address] [place] [id number] Orthopedic Surgery 09/22/11 documented as of this encounter
--- OUTSIDE RECORDS SUMMARY | 2024-08-05 14:54 | XMS_ITS | Encounter Summary ---
Author Organization [facility] Health Address [address] [place] [address] Care Team Providers Care Geography Instructor Name Role Phone Zev Shaw MD Primary Care Provider [phone] Rex Finley MD Unavailable [phone] Encounter Details Date Type Department Care Team (Late st Contact Info) Description 03/19/2011 SS Outpatient Visit EXTERNAL NON-[facility] [address] [place] [phone] Social History Tobacco Use Types Packs/Day [...] on filedocumented in this encounter Care Teams Geography Instructor Relationship Specialty Start Date End Date Zev Shaw MD [address] [facility] [address] [place] [address] PCP - General 02/24/11 Rex Finley MD [address] [facility] [address] [place] [phone] Orthopedic Surgery 09/22/11 documented as of this encounter
--- OUTSIDE RECORDS SUMMARY | 2024-08-05 14:54 | XMS_ITS | Clinical Summary ---
Author Organization [facility] Address [address] [place] [address] Care Team Providers Care Outpatient Coding Specialist Name Role Phone Luis Manuel López MD Primary Care Provider Allergies Active Allergy Reactions Criticality Noted Date Comments Lisinopril Cough Low 11/06/2015 Medications calcium carbonate (TUMS) 200 mg (500 mg) Oral Chew Take 500 mg by mouth 1 time daily as needed. 06/10/20 10 Active folic acid (FOLVITE) 1 mg tablet Take 1 Tab by mouth daily. 30 Tab 0 01/04/20 14 Active aspirin (ECOTRIN EC) 81 mg Tablet, Delayed Release (E.C.) Take 1 Tablet (81 mg) by mouth every 12 hours. 60 Tablet 1 03/15/20 19 Active permethrin (ELIMITE) 5 % Cream Massage permethrin cream thoroughly into the skin from the neck to the soles of the feet, including areas under the fingernails and toenails, it should be removed by washing (shower or bath) after 8 to 14 hours. Treatment is often performed overnight. Okay to repeat 1 week later if still symptoms. 60 Gram 06/03/20 21 Active multivitamin (DAILY-KASSANDRA) tablet Take 1 Tablet by mouth daily. 06/09/20 21 Active FLUoxetine (PROzac) 20 mg tablet Take 2 Tablets (40 mg) by mouth daily. 180 Tablet 3 06/09/20 21 Active fenofibrate nanocrystallized (Tricor) 145 mg tablet Take 1 Tablet (145 mg) by mouth daily. 90 Tablet 1 06/09/20 Active traZODone (DESYREL) 100 mg tablet Take 1 Tablet (100 mg) by mouth daily at bedtime. 90 Tablet 1 06/09/20 Active famotidine (PEPCID) 20 mg tablet Take 1 Tablet (20 mg) by mouth 2 times daily. 180 Tablet 2 06/10/20 Active busPIRone (BUSPAR) 15 mg Tablet Take 1 Tablet (15 mg) by mouth 2 times daily. 180 Tablet 3 06/19/20 Active Active Problems Problem Noted Date Diagnosed Date Status post total hip replacement, left 05/01/20 19 Obesity (BMI 35.0-39.9 without comorbidity) 01/03 Primary osteoarthritis of left hip 07/30/2018 Left hip pain 05/19/2018 Left foot pain 05/19/2018 Cough 11/11/2016 Prostate cancer screening 04/14/2016 Nocturia 11/08/2014 Cough due to MERCEDES inhibitor 11/08/2014 Hypoxia 12/31/2013 Tracheobronchitis 12/30/2013 Poisoning by isopropyl alcohol 12/29/2013 Impotence of organic origin 01/31/2013 Edema 01/19/2012 Varicose vein 01/19/2012 Recurrent major depressive disorder, in partial remission 07/08/2011 SOB (shortness of breath) 04/22/2011 Falls frequently 04/22/2011 Essential hypertension, benign 2010 History of alcohol dependence 2010 Mixed hyperlipidemia 2010 GERD (gastroesophageal reflux disease) 0 Hemochromatosis 2010 Resolved Problems Problem Noted Date Diagnosed Date Resolved Date Severe obesity (BMI 35.0-39. 9) with comorbidity 05/01/2019 01/30/2020 Elbow pain, right 11/11/2016 05/25/2020 SVT (supraventricular tachycardia) 01/02/2014 01/30/2020 Routine general medical exam ination at a health care facility 08/08/2011 05/25/2020 Spells 04/22/2011 05/25/2020 Pruritus 09/17/2010 05/25/2020 Immunizations Immunization Administration Dates Next Due (ADACEL/BOOSTRIX)(10 YR UP) TDAP VACCINE, 0.5ML, IM 01/28/2019 (PFIZER)(12 YR UP) COVID-19 VACCINE - EMERGENCY USE AUTHORIZATION, MRNA, [id number](PF) 30 MCG/0.3 ML IM SUSP 04/17/2021,08/01/2020,07/11/2020 (PNEUMOVAX 23)(50 YRS UP) PN EUMOCOCCAL POLYSACCHARIDE (PPV23) 0.5 ML, IM 04/05/2020 (PREVNAR 13)(6 WKS UP) PNEUM OCOCCAL CONJUGATE (PCV13) 0.5 ML, IM 01/28/2019 (SHINGRIX)(50 YRS UP) ZOSTER VACCINE RECOMBINANT, 0.5 ML, IM 03/31/2019,01/05/2019 INFLUENZA VACCINE QUADRIVALE NT ADJ 65 YR UP PF IM 04/05/2020 Influenza Seasonal Unspecifi ed Formulation IM 03/31/2019,04/08/2018,04/11/2017,04/07,04/12/2015,04/04/2014,03/29/2011 Influenza Vaccine High Dose 65+ Yrs IM 0 04/03/2021,04/05/2020,04/12/2017,04/07 Influenza Vaccine Tri Adjuva nted 65+ PF IM 03/31/2019 PNEUMOVAX (PPSV23) pneumococ laly polysaccharide 23-valent Vaccine 04/05/2020 PREVNAR (PCV13) pneumococcal 13-valent conjugate Vaccine 11/30/2020,04/08/2018 Zoster Vaccine Live SQ 05/02/2013 Family History Medical History Relation Name Comments Depression Father Relation Name Status Comments Father Social History Tobacco Use Types Packs/Day Years Used Date Smoking Tobacco: Former Cigarettes 0.5 4 1 976 - 1980 Smokeless Tobacco: Never Alcohol Use Standard Drinks/Week Comments Not Currently 0 (1 standard drink = 0.6 oz pur e alcohol) quit - 02/2019 Feeling Safe Answer Date Recorded Within the last year, have y ou been afraid of your partner or ex-partner? No 03/15/2019 Within the last year, have y ou been humiliated or emotionally abused in other ways by your partner or ex-partner? No Within the last year, have y ou been kicked, hit, slapped, or otherwise physically hurt by your partner or ex-partner? No 03/15/2019 Within the last year, have y ou been raped or forced to have any kind of sexual activity by your partner or ex-partner? No 03/15/2019 Sex and Gender Information Value Date Recorded Sex Assigned at Not on file Legal Sex Male 2:53 AM SCREW MACHINE TENDER Gender Identity Not on file Sexual Orientation Not on file Occupation Industry Job Start Date Job End Date Not on file Not on file Not on file Not on file Last Filed Vital Signs Vital Sign Reading Time Taken Comments Blood Pressure 110/70 05/28/2021 1:17 PM SCREW MACHINE TENDER Pulse 82 08/31/2019 9:46 AM SCREW MACHINE TENDER Temperature 36.4 ??C (97.6 ??F) 03/17/2019 12:21 PM C DT Respiratory Rate 16 03/17/2019 12:21 PM CDT Oxygen Saturation 96% 08/31/2019 9:46 AM SCREW MACHINE TENDER Inhaled Oxygen Concentration - - Weight 89.5 kg (197 lb 4 oz) 05/28/2021 1:17 PM SCREW MACHINE TENDER Height 172.7 cm (5' 8 ) 05/28/2021 1:17 PM SCREW MACHINE TENDER Body Mass Index 29.99 05/28/2021 1:17 PM SCREW MACHINE TENDER Plan of Treatment Health Maintenance Due Date Last Done Comments FIT/ DNA Q 3 YEARS (AUTO ORDER) 1968 FIT/FOBT Q 1 YEAR (AUTO ORDER) 1968 FLEX SIG/CT COLONOGRAPHY Q 5 YEARS (AUTO ORDER) 1968 FIT-DNA Q 3 years 1995 FIT/FOBT Q 1 year 1995 Flex Sig/CT Colonography Q 5 years 1995 RSV VACCINE (60+ or ) (1 - Risk 60-74 years 1-dose series) 2010 Abdominal Aortic Aneurysm (A AA) Screening 2015 Traditional Medicare (ACO) A nnual Wellness Visit 05/29/2022 05/28/2021, 05/25/2020, 05/25/2020, Additional history exists INFLUENZA VACCINE (#1) 2024 , 04/05/2020, 04/05/2020, Additional history exists COVID-19 Vaccine ( - 2023-2 5 season) 2024 04/17/2021, 08/01/2020, 07/11/2020 COLORECTAL CANCER SCREENING (AUTO ORDER) 07/20/2027 07/20/2017, 05/25/2012 COLORECTAL SCREENING 07/20/2027 07/20/2017, 05/25/2012, 07/06/2010 Colorectal Cancer Screening (AUTO ORDER) 07/20/2027 Colorectal Cancer Screening 07/20/2027 DTAP/TDAP/TD VACCINES (2 - T d or Tdap) 01/28/2029 01/28/2019 ZOSTER VACCINE Completed 03/31/2019, 09/2018, 05/02/2013 PNEUMOCOCCAL VACCINE 65+ YEARS Completed 0 11/30/2020, 04/05/2020, 04/05/2020, Additional history exists Medical Devices Implanted Type Area Rubber Stamp Maker Device Identifier Shelf Expiration Date Model / Serial / Lot Shell G7 Pps Lmtd Hl 56mm [id number] - [id number] Implanted:Qty : 1 on 03/14/2019 by Roque Santos MD at [facility] Hip Left: Hip JAYA [employer] [id number] 12/19/2028 [id number] / / [id number] Liner Arcomxl Neut 36mm Szf [id number] - [id number] Implanted:Qty : 1 on 03/14/2019 by Roque Santos MD at [facility] Hip Left: Hip JAYA [employer]ET [id number] 12/31/2023 [id number] / / [id number] Stem Fem Echo Bimetric Por Lat [id number] - [id number] Implanted:Qty : 1 on 03/14/2019 by Roque Santos MD at [facility] Hip Left: Hip JAYA BI[employer]ET [id number] 05/05/2027 [id number] / / [id number] Description:ALL JAYA BIOME T COMPONETS ON REQUSITION# [id number] Head Modular Noskt 36mm +3mm -[id number] - [id number] Implanted:Qty : 1 on 03/14/2019 by Roque Santos MD at [facility] Hip Left: Hip JAYA BIOMET 02/20/[id number] / / [id number] Screw Trlgy St 6.5x30mm [id number] - [id number] Implanted:Qty : 1 on 03/14/2019 by Roque Santos MD at [facility] Screw Left: Hip JAYA [facility] [id number] 02/02/2029 [id number] / / [id number] Procedures Procedure Name Priority Date/Time Associated Diagnosis Comments ENDOSCOPY, COLON, SCREENING Routine 05/25/2012 from Last 3 Months or Most Recently Relevant to Health Maintenance Results * ENDOSCOPY, COLON, SCREENING (05/25/2012) us Abstract Provider GI PROCEDURE ORDERABLES Edited [facility] from Last 3 Months or Most Recently Relevant to Health Maintenance Insurance MEDICARE PART A AND B [employer] PPO Advance Directives For more information, please contact: [phone] * Full Code (Latest Code Status on File) Date Activated Date Inactivated Comments 03/14/2019 8:24 PM 03/17/2019 8:05 PM * Full Code Date Activated Date Inactivated Comments 03/14/2019 2:11 PM 03/14/2019 8:24 PM * Full Code Date Activated Date Inactivated Comments 03/14/2019 1:04 PM 03/14/2019 2:11 PM * Full Code Date Activated Date Inactivated Comments 12/28/2013 12:51 AM 01/03/2014 6:34 PM Care Teams Outpatient Coding Specialist Relationship Specialty Start Date End Date Luis Manuel López MD [address] [facility] [place] [address] PCP - General Internal Medicine 05/25/20
--- OUTSIDE RECORDS SUMMARY | 2024-08-05 14:55 | XMS_ITS | Clinical Summary ---
Author Organization [facility] Address [address] [place] [address] Care Team Providers Care Certified Home Health Aide Name Role Phone Zev Shaw MD Primary Care Provider [phone] Rex Finley MD Unavailable [phone] Source Comments [facility],non-owned Affiliates and Associated Physician Practices is amultiple site organization consisting of ambulatory clinics and hospital sitesin [place], [place], [place]. This disclosure is being madepursuant to the Care Everywhere program and may not contain all information available regarding this patient. Last updated 18.[facility] Allergies No known active allergies Medications * [...] Comments Blood Pressure 129/73 08/15/2019 7:32 AM RIDE OPERATOR Pulse 63 08/15/2019 7:32 AM RIDE OPERATOR Temperature 36.5 ??C (97.7 ??F) 08/15/2019 7:32 AM CS T Respiratory Rate 16 08/15/2019 7:32 AM RIDE OPERATOR Oxygen Saturation 95% 08/15/2019 7:32 AM RIDE OPERATOR Inhaled Oxygen Concentration - - Weight 104.3 kg (230 lb) 08/08/2019 7:00 PM RIDE OPERATOR Height 175.3 cm (5' 9.02 ) 08/08/2019 7:00 PM CS T Body Mass Index 33.95 08/08/2019 7:00 PM RIDE OPERATOR Plan of Treatment Health Maintenance Due [...] 3:37 PM 03/29/2011 10:28 PM Care Teams Certified Home Health Aide Relationship Specialty Start Date End Date Zev Shaw MD [address] [facility] [address] [address] PCP - General 02/24/11 Rex Finley MD [address] [facility] [address] [address] Orthopedic Surgery 09/22/11
--- OUTSIDE RECORDS SUMMARY | 2024-08-05 14:55 | XMS_ITS | Referral Summary ---
Author Organization [facility] Address [address] [place] [address] Care Team Providers Care Traffic Operations Manager Name Role Phone eZv Shaw MD Primary Care Provider [phone] Rex Finley MD Unavailable [phone] Source Comments [facility],non-owned Affiliates and Associated Physician Practices is amultiple site organization consisting of ambulatory clinics and hospital sitesin [place], [place], [place] and [place]. This disclosure is being madepursuant to the Care Everywhere program and may not contain all information available regarding this patient. Last updated 18.[facility] Allergies No known active allergies Medications * [...] Comments Blood Pressure 129/73 08/15/2019 7:32 AM EXIT BOOTH AGENT Pulse 63 08/15/2019 7:32 AM EXIT BOOTH AGENT Temperature 36.5 ??C (97.7 ??F) 08/15/2019 7:32 AM CS T Respiratory Rate 16 08/15/2019 7:32 AM EXIT BOOTH AGENT Oxygen Saturation 95% 08/15/2019 7:32 AM EXIT BOOTH AGENT Inhaled Oxygen Concentration - - Weight 104.3 kg (230 lb) 08/08/2019 7:00 PM EXIT BOOTH AGENT Height 175.3 cm (5' 9.02 ) 08/08/2019 7:00 PM CS T Body Mass Index 33.95 08/08/2019 7:00 PM EXIT BOOTH AGENT Functional Status Functional Status Response Date of [...] 3:37 PM 03/29/2011 10:28 PM Care Teams Traffic Operations Manager Relationship Specialty Start Date End Date Zev Shaw MD [address] [facility] [address] [phone] PCP - General 02/24/11 Rex Finley MD [address] [facility] [address] [phone] Orthopedic Surgery 09/22/11
--- OUTSIDE RECORDS SUMMARY | 2024-08-05 14:55 | XMS_ITS | Patient Health Summary ---
Author Organization [facility] Address [address] [place] [address] Care Team Providers Care Credit Card Specialist Name Role Phone Zev Shaw MD Primary Care Provider [phone] Rex Finley MD Unavailable [phone] Note from [facility],non-owned Affiliates and Associated Physician Practices is amultiple site organization consisting of ambulatory clinics and hospital sitesin [place], [place], [place] and [place]. This disclosure is being madepursuant to the Care Everywhere program and may not contain all information available regarding this patient. Last updated 18.[facility] Allergies No known active allergies Medications * [...] Comments Blood Pressure 129/73 08/15/2019 7:32 AM FOOD SERVER Pulse 63 08/15/2019 7:32 AM FOOD SERVER Temperature 36.5 ??C (97.7 ??F) 08/15/2019 7:32 AM CS T Respiratory Rate 16 08/15/2019 7:32 AM FOOD SERVER Oxygen Saturation 95% 08/15/2019 7:32 AM FOOD SERVER Inhaled Oxygen Concentration - - Weight 104.3 kg (230 lb) 08/08/2019 7:00 PM FOOD SERVER Height 175.3 cm (5' 9.02 ) 08/08/2019 7:00 PM CS T Body Mass Index 33.95 08/08/2019 7:00 PM FOOD SERVER Procedures * BASIC METABOLIC PANEL (CALCIUM TOTAL)(Performed [...] METABOLIC PANEL (CALCIUM TOTAL) (08/10/2019 6:38 AM FOOD SERVER) Only the most recent of2 resultswithin the time period is included. [facility] Glucose 94 70 - 125 mg/dL 08/10/2019 7:28 AM FOOD SERVER [facility] Sodium 141 136 - 145 mmol/L 08/10/2019 7:28 AM [facility] Potassium 3.4 3.4 - 4.5 mmol/L 08/10/2019 7:28 AM [facility] Chloride 106 98 - 107 mmol/L 08/10/2019 7:28 AM [facility] CO2 25 22 - 29 mmol/L 08/10/2019 7:28 AM [facility] Calcium 9.1 8.4 - 10.2 mg/dL 08/10/2019 7:28 AM [facility] Anion Gap 13 10 - 20 mmol/L 08/10/2019 7:28 AM [facility] BUN 6.7(L) 8.4 - 25.7 mg/dL 08/10/2019 7:28 AM [facility] Creatinine 0.67(L) 0.72 - 1.25 mg/dL 08/10/2019 7:28 AM [facility] eGFR by MDRD >60 >60 mL/min/1.7 3m2 08/10/2019 7:28 AM [facility] eGFR by MDRD >60 >60 mL/min/1.7 3m2 08/10/2019 7:28 AM [facility] Blood BLOOD SPECIMEN / Unknown Lab Venipuncture / Unknown 08/10/2019 6:38 AM [facility] 08/10/2019 7:01 AM [facility] Maia Rico Georges LOG CHIPPER OPERATOR-MINE SAFETY ENGINEER LAB - CHEMISTRY O RDERABLES Performing Organization Address [facility]/State/[facility] de Phone Number [facility] [address] * (ABNORMAL) VITAMIN D 25-HYDROXY (08/09/2019 6:15 AM [facility]) [facility] Vitamin D, 25 Hydroxy 15.1(L) 30 - 100 ng/mL 08/09/2019 7:05 AM [facility] Blood BLOOD SPECIMEN / Unknown Lab Venipuncture / Unknown 08/09/2019 6:15 AM FOOD SERVER 08/09/2019 6:21 AM [facility] Narrative [facility] - 08/09/2019 7:05 AM [facility] Reference Values: The recommendation for 25-Hydroxy Vitamin [...] - CHEMISTRY BRITTANI BROWER Performing Organization Address [facility] Co de Phone Number [facility] [address] * VITAMIN B12 (08/09/2019 6:15 AM FOOD SERVER) [facility] Vitamin B12 445 213 - 816 pg/mL 08/09/2019 7:16 AM FOOD SERVER [facility] Blood BLOOD SPECIMEN / Unknown Lab Venipuncture / Unknown 08/09/2019 6:15 AM FOOD SERVER 08/09/2019 6:21 AM FOOD SERVER Shelly Azar MD LAB - CHEMISTRY BRITTANI BROWER Performing Organization Address [facility] de Phone Number [facility] [address] * CARDIAC EKG ORDER (03/31/2011 4:17 [...] - BLOOD BAN K ORDERABLES [facility] [address] [place] [address] * (ABNORMAL) HGB HCT PANEL (03/28/2011 9:30 AM CDT) Hemoglobin 12.3(L) 13.0 - 18.0 gm/dl [facility] Hematocrit 37.9(L) 39.0 - 54.0 % [facility] BLOOD SPECIMEN / Unknown 03/28/2011 9:30 AM CDT 03/28/2011 9:42 AM CDT Manolo Ayala MD LAB - HEMATOLOGY ORD ERABLES [facility] [address] [place] [address] * XR CERVICAL SPINE W OBL AND [...] Other Ulises Henley DO IMAGING Care Teams Credit Card Specialist Relationship Specialty Start Date End Date Zev Shaw MD [address] [facility] [address] [address] PCP - General 02/24/11 Rex Finley MD [address] [facility] [address] [address] Orthopedic Surgery 09/22/11
[2024-08-05 16:52] LABS: Basophils Absolute Auto 0.1 K/mm3 (0.0-0.1); Basophils Percent Auto 0.7 % (0.2-1.2); Eosinophils Absolute Auto 0.1 K/mm3 (0-0.3); Hematocrit 44.6 % (42.0-52.0); Immature Granulocyte Percent A 1.1 % (0-0.5); Lymphocytes Absolute Auto 1.54 K/mm3 (0.9-3.2); Lymphocytes Percent Auto 17.1 % (18.3-44.2); Mean Corpuscular HGB Conc 33.6 g/dl (32-36); Mean Corpuscular Hemoglobin 32.7 pg (26-34); Mean Corpuscular Volume 97.2 fl (80-100); Mean Platelet Volume 10.7 fl (7.4-10.4); Monocytes Absolute Auto 1.3 K/mm3 (0.1-0.6); Monocytes Percent Auto 14.1 % (2.6-8.5); Neutrophils Absolute Auto 5.9 K/mm3 (1.3-6.7); Platelet Count Result 235 k/mm3 (150-375); Red Blood Count 4.59 M/mm3 (4.6-6.20); Red Cell Distribution Width 18.3 % (11.5-14.5)
[2024-08-05 17:01] LABS: Alanine Aminotransferase 20 U/L (6-50); Albumin Level 3.2 g/dL (3.5-5.1); Alkaline Phosphatase 262 U/L (38-126); Anion Gap 7 mmol/L (4-12); Aspartate Amino Transferase 75 U/L (17-59); Bilirubin,Total 14.9 mg/dL (0.2-1.3); Blood Urea Nitrogen 10 mg/dL (9-20); Calcium 9.7 mg/dL (8.4-10.2); Carbon Dioxide 26 mmol/L (22-30); Chloride 103 mmol/L (98-107); Estimated Glomerular Filt Rate > 60; Glucose 120 mg/dL (65-110); Lipase 68 U/L (23-300); Potassium 3.8 mmol/L (3.4-5.0); Sodium 136 mmol/L (137-145)
[2024-08-05 17:03] LABS: INR 1.6; Prothrombin Time 19.7 Seconds (11.1-14.7)
[2024-08-05 17:04] LABS: Partial Thromboplastin Time 34.9 Seconds (22.3-36.8)
[2024-08-05 20:07] VITALS: BP 136/81; PULSE 90; RESP 20; TEMP 36.3; O2SAT 98
[2024-08-05 20:29] LABS: Add Urine Microscopic? YES; Ammonia 23 umol/L (9-30); Appearance Urine Turbid (Clear); Bacteria Urine Rare /hpf; Bilirubin Urine 3+ (Negative); Blood Urine 3+ (Negative); Color Urine Dark Yellow (Yellow); Glucose Urine UA Negative (Negative); Ketones Urine Negative (Negative); Leukocyte Esterase Ur 1+ LEU/UL (Negative); Mucus Urine Present /lpf; Need Manual Microscopic Reviewed; Nitrate Urine Positive (Negative); Non Pathogenic Casts 0-2; Protein Urine 1+ mg/dL (Negative); Specific Grav Ur 1.023 (1.001-1.035); Squamous Epithelial Cell Urine None Seen /hpf (Few); Urobilinogen Urine 0.2 mg/dL (<2.0); WBC Urine 0-5 /hpf (0-3); pH Urine 5.5 (5.0-9.0)
[2024-08-05 21:45] VITALS: BP 129/68; PULSE 89; RESP 14; O2SAT 98
--- NOTE | 2024-08-05 22:06 | P.HP_ITS ---
H&P: HPI History of Present Illness Date/Time: 08/05/24 22:06 Chief Complaint: Jaundice Narrative: This is a 74-year-old male with past medical history significant for alcohol dependence, patient has been sober now for over a year, hepatic cirrhosis, esophageal varices, gastroesophageal reflux disease, depression. Patient presents to the emergency room due to jaundice, denies melena, coffee-ground emesis, hematemesis, bright red blood per rectum, has been his usual state of health. Preliminary workup was significant for CT of abdomen and pelvis with liver mass. A total bilirubin was 14. Patient denies any nausea, vomiting, diarrhea, fevers, chills. Patient has been admitted for further evaluation management and treatment. EXAMINATION: CT abdomen pelvis w con DATE: 08/05/2024 21:00 INDICATION: Cirrhosis of the liver. TECHNIQUE: Computed tomography (CT) of the abdomen and pelvis was performed with 100 mL Omnipaque 350 intravenous contrast. Automated exposure control and iterative reconstruction technique were employed. The dose-length product was 1545.14 mGy-cm. COMPARISON: CT abdomen and pelvis 01/11/2021, chest CT 12/16/22 FINDINGS: The visualized portions of the lung bases demonstrate chronic right- sided pleural thickening with right lower lobe rounded atelectasis. A calcified right lung nodule and calcified right hilar lymph nodes are consistent with old granulomatous disease. No pleural effusion. The heart size is normal. There are calcifications in the aortic valve. No pericardial effusion. There is a 10.4 x 7.3 cm hypodense mass in left hepatic lobe with tumor thrombus in left portal vein. There is a 15 mm mass in right hepatic lobe. The gallbladder is contracted. The spleen is normal. There are calcifications in the pancreas, and the pancreatic duct is dilated to 5 mm in the tail of the pancreas, consistent with chronic pancreatitis. The adrenal glands are normal. There is 6 mm and 2 mm stones in right kidney. There are cysts in the kidneys measuring up to 5 mm on the right. There is a 5 mm stone in left kidney. The prostate is mildly enlarged. There are no dilated loops of bowel. The appendix is not visualized. There is hypodense periportal lymphadenopathy measuring up to 2.3 x 1.7 cm. There is no free intraperitoneal fluid. There is a total left hip arthroplasty. There are old healed right rib fractures. There is a chronic compression fracture of L4. There is severe lumbar spondylosis. IMPRESSION: 1. 10.4 cm liver mass, consistent with malignancy such as hepatocellular carcinoma or cholangiocarcinoma. Ultrasound-guided core needle biopsy is recommended. 2. 15 mm liver mass suspicious for metastatic disease. 3. Periportal lymphadenopathy, consistent with metastatic disease. Review of Systems Review of Systems: Jaundice [facility] Past Medical History Medical History Hx pulmonary embolism CTA RLL PE 08/20/19 Alcoholism Anxiety Depression Nose fracture GERD (gastroesophageal reflux disease) EGD normal 08/24/19 Esophageal varices Hypertension Hypercholesteremia Deviated septum Surgical History Surgical History History of total left hip arthroplasty H/O hernia repair x2 History of appendectomy Family History Family History Father Alcoholism Congestive heart failure Mother Cancer Grandparent Diabetes mellitus Social History Social History Social History: Patient lives alone. He resides at [facility], [place], operated by [facility]. He is . No children. Alcohol use as mentioned above. He has a history of marijuana, heroin and amphetamine use but no history of IV drug use. He smoked tobacco sporadically but quit in his 30s. He is a [employer] . He did receive his degree after the service in social studies. 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 He lists his ex- to be the individual to make decisions for him if he is unable. Smoking status: Former smoker Tobacco type: cigarettes Second hand tobacco smoke exposure: No Alcohol intake: former Drinks per week: 30 Alcohol use details: 1/5 VODKA DAILY Substance use: never Substance use type: does not use Other substance usage details: drinks 1/5 vodka daily Last use: years ago Do You Feel Safe in your Home?: Yes Lack of Transportation: No Lack of Food: Never True Current Housing: I Have Housing Concerned About Future Housing: No Difficulty Paying Gas/Electric Bills: No Difficulty Paying for Meds: No Currently Unemployed: No Education: Master's Degree or Higher Difficulty w/ Childcare or Family Care: No Living arrangements: halfway Gender identity (if verbalized by the patient): Male Spiritual care concerns: No Agree to blood products: Yes Meds Home Medications and Allergies Home Medications ?Medication ?Instructions ?Recorded ?Confirmed ?Type famotidine 20 mg tablet 20 mg PO BID 06/27/21 08/06/24 History fenofibrate nanocrystallized 145 145 mg PO DAILY 06/27/21 08/06/24 History mg tablet (Tricor) furosemide 20 mg tablet 20 mg PO DAILY 06/27/21 08/06/24 History multivitamin,tx-minerals 1 tablet PO DAILY 06/27/21 08/06/24 History thiamine HCl (vitamin B1) 100 mg 100 mg PO DAILY 06/27/21 08/06/24 History tablet trazodone 100 mg tablet 100 mg PO HS 06/27/21 08/06/24 History acetaminophen 325 mg tablet 650 mg PO Q6H PRN Pain 05/04/24 08/06/24 History apixaban 5 mg tablet (Eliquis) 5 mg PO BID 05/04/24 08/06/24 History buspirone 5 mg tablet 5 mg PO BID 05/04/24 08/06/24 History calcium carbonate (Tums) 200 mg PO Q6H PRN Heartburn 05/04/24 08/06/24 History diphenhydramine HCl 25 mg tablet 25 mg PO BID PRN Itching 05/04/24 08/06/24 History (Benadryl Allergy) fluoxetine 20 mg tablet 20 mg PO DAILY 05/04/24 08/06/24 History loperamide 2 mg capsule 2 mg PO Q6H PRN LOOSE STOOLS 05/04/24 08/06/24 History mirabegron 25 mg tablet,extended 50 mg PO HS 05/04/24 08/06/24 History release 24 hr (Myrbetriq) triamcinolone acetonide 0.1 % 1 applic topical BID PRN SCRATCHING 05/04/24 08/06/24 History topical cream multivitamin with folic acid 400 1 tablet PO DAILY 08/06/24 08/06/24 History mcg tablet (Therems Multivitamin) tamsulosin 0.4 mg capsule 0.4 mg PO DAILY 08/06/24 08/06/24 History Allergies Allergy/AdvReac Type Severity Reaction Status Date / Time lisinopril Allergy Unknown Verified 08/01/24 16:18 Vital Signs Vital Signs - 24 hr 08/05/24 12:55 08/05/24 20:07 Temperature 97.9 F 97.4 F L Pulse Rate 97 90 Respiratory Rate 16 20 Blood Pressure 113/75 136/81 Pulse Oximetry 97 98 Oxygen Delivery Room Air Exam Narrative: Patient is sitting in a stretcher Const: General: cooperative, comfortable, no acute distress, well developed, alert, awake, ill appearing chronically and obese Nutritional Appearance: obese Orientation/consciousness: patient oriented x3 Other: Jaundiced HENMT: Head: normal to inspection, normocephalic and atraumatic Ears: hearing grossly normal bilaterally Face/Nose/Sinus: normal facial exam Face and sinus: normal facial exam Eyes: General: appearance normal, both eyes and all related structures Pupils: Equal, round and reactive pupils present EOM: EOMs intact bilaterally Other: Icterus Neck: Neck: full ROM, no lymphadenopathy and no JVD Thyroid: thyroid normal Lymphatic: no lymphadenopathy noted Resp: Effort & Inspection: normal respiratory effort and able to speak in complete sentences Auscultation: clear to auscultation bilaterally Cardio: Jugular venous distension: no JVD Rate: regular rate Rhythm: regular rhythm Heart sounds: S1 normal heart sound present and S2 normal heart sound present GI: Inspection: Pannus present, obesity, no visible herniation, No visible peristalsis and No caput medusae present GI Palp: Yes Soft to palpation and Yes No hepatosplenomegaly present : General: Yes deferred Skin: Rashes: no rashes Wounds: no wounds Neuro: General: patient oriented x3 and CN's II-XI intact bilaterally Cranial nerves: Yes CN's II-XII intact bilaterally and Yes Equal, round and reactive pupils present Cognition (Neuro): normal cognition Speech: normal speech Gait exam (Neuro): Normal gait present Motor exam (neuro): 5/5 motor strength present throughout Extrem: General: normal to inspection, full ROM, no joint enlargement and no pedal edema H&P: Results Labs Labs: Short CBC 08/05/24 Range/Units 16:44 WBC 9.0 (4.5-10.0) K/mm3 Hgb 15.0 (14.0-18.0) g/dL Hct 44.6 (42.0-52.0) % Plt Count 235 (150-375) k/mm3 BMP 08/05/24 16:44 Sodium 136 L Potassium 3.8 Chloride 103 Carbon Dioxide 26 BUN 10 Creatinine 0.56 L Glucose 120 H Calcium 9.7 Liver Function 08/05/24 Range/Units 16:44 Total Bilirubin 14.9 H (0.2-1.3) mg/dL AST 75 H (17-59) U/L ALT 20 (6-50) U/L Alkaline Phosphatase 262 H (38-126) U/L Albumin 3.2 L (3.5-5.1) g/dL Urine 08/05/24 Range/Units 20:09 Urine Color Dark yellow (Yellow) Urine Appearance Turbid H (Clear) Urine pH 5.5 (5.0-9.0) Ur Specific [place] 1.023 (1.001-1.035) Urine Protein 1+ H (Negative) mg/dL Urine Glucose (UA) Negative (Negative) mg/dL Assessment and Plan Assessment and plan (1) Liver mass: Code(s): R16.0 - Hepatomegaly, not elsewhere classified Status: Acute Assessment and Plan: Placed in observation GI consult (2) Elevated bilirubin: Code(s): R17 - Unspecified jaundice Status: Acute Assessment and Plan: Likely secondary to hepatocellular damage (3) Elevated alkaline phosphatase level: Code(s): R74.8 - Abnormal levels of other serum enzymes Status: Acute Assessment and Plan: Patient found to have mass (4) GERD (gastroesophageal reflux disease): Qualifiers: Esophagitis presence: esophagitis presence not specified Qualified Code(s): K21.9 - Gastro-esophageal reflux disease without esophagitis Code(s): K21.9 - Gastro-esophageal reflux disease without esophagitis Status: Chronic Assessment and Plan: PPI (5) Alcohol dependence: Code(s): F10.20 - Alcohol dependence, uncomplicated Status: Acute Assessment and Plan: Patient has been sober for over a year Hospitalist MIPS Advance Care Plan I have confirmed that the patient's Advanced Care Plan is present, code status is documented, or surrogate decision maker is listed in patient medical record.: Yes Medication Reconciliation I have utilized all available resources to obtain, update and review the patients current medications (includes all prescriptions, OTC, herbals, cannabis, and nutritional supplements).: Yes
[2024-08-05 23:30] LABS: Influenza A QL RT-PCR Negative (Negative); Influenza B QL RT-PCR Negative (Negative); RSV RNA, RT-PCR Negative (Negative); SARS-CoV-2 RNA PCR Negative (Negative)
[2024-08-06 00:01] VITALS: BP 151/72; PULSE 90; RESP 20; TEMP 36.4; O2SAT 97; BMI 34.7
--- NOTE | 2024-08-06 00:37 | ADMGEN ---
This patient, Toro Zeng, was admitted to 3 [facility] Surg Room 314-01. Patient/family oriented to hospital policies and general routines including ID bracelet, bed and alarms, visiting hours, pain management, procedures, bathroom and other care routines, personal items, smoking policy, room service/diet, and visiting hours. Information on how to activate the Rapid Response Team has been discussed. Patient/Family are encouraged to report perceived risks to care and to ask questions if they do not understand what they are told or what they should do.
[2024-08-06 06:00] VITALS: BP 138/83; PULSE 77; RESP 16; TEMP 36.1; O2SAT 98
[2024-08-06 08:52] LABS: Basophils Absolute Auto 0.1 K/mm3 (0.0-0.1); Basophils Percent Auto 0.7 % (0.2-1.2); Eosinophils Absolute Auto 0.1 K/mm3 (0-0.3); Eosinophils Percent Auto 1.1 % (0-4.4); Hematocrit 42.3 % (42.0-52.0); Immature Granulocyte Absolute 0.09 K/mm3 (0.00-0.031); Lymphocytes Absolute Auto 1.44 K/mm3 (0.9-3.2); Lymphocytes Percent Auto 15.7 % (18.3-44.2); Mean Corpuscular HGB Conc 33.1 g/dl (32-36); Mean Corpuscular Hemoglobin 31.7 pg (26-34); Mean Corpuscular Volume 95.7 fl (80-100); Mean Platelet Volume 11.4 fl (7.4-10.4); Monocytes Absolute Auto 1.2 K/mm3 (0.1-0.6); Monocytes Percent Auto 13.3 % (2.6-8.5); Neutrophils Absolute Auto 6.3 K/mm3 (1.3-6.7); Neutrophils Percent Auto 68.2 % (45.5-73.1); Platelet Count Result 224 k/mm3 (150-375); Red Blood Count 4.42 M/mm3 (4.6-6.20); Red Cell Distribution Width 18.7 % (11.5-14.5); White Blood Count 9.2 K/mm3 (4.5-10.0)
[2024-08-06 09:20] LABS: Alanine Aminotransferase 18 U/L (6-50); Albumin Level 2.7 g/dL (3.5-5.1); Alkaline Phosphatase 229 U/L (38-126); Anion Gap 8 mmol/L (4-12); Aspartate Amino Transferase 76 U/L (17-59); Bilirubin,Total 14.3 mg/dL (0.2-1.3); Blood Urea Nitrogen 10 mg/dL (9-20); Calcium 9.2 mg/dL (8.4-10.2); Carbon Dioxide 24 mmol/L (22-30); Chloride 103 mmol/L (98-107); Estimated CRCL calculation 146 ml/min; Estimated Glomerular Filt Rate > 60; Glucose 107 mg/dL (65-110); Potassium 4.2 mmol/L (3.4-5.0); Sodium 135 mmol/L (137-145)
[2024-08-06] MEDS: THIAMINE HCL 100 MG TABLET PO (09:27)
[2024-08-06] MEDS: FAMOTIDINE 20 MG TABLET PO ×2 (09:27→20:43)
[2024-08-06] MEDS: busPIRone HCL 5 MG TABLET PO ×2 (09:27→17:25)
[2024-08-06] MEDS: TAMSULOSIN HCL 0.4 MG CAPSULE PO (09:27)
[2024-08-06] MEDS: FLUoxetine HCL 20 MG CAPSULE PO (09:27)
[2024-08-06] MEDS: FENOFIBRATE NANOCRYSTALLIZED 145 MG TABLET PO (09:27)
[2024-08-06 11:00] LABS: Lactate Dehydrogenase 198 U/L (120-246)
[2024-08-06 11:41] LABS: Hepatitis B Surface Antigen Negative (Negative)
[2024-08-06 11:47] LABS: HAV RESULT Negative (Negative); Hepatitis B Core IgM Result Negative (Negative)
[2024-08-06 11:59] LABS: Hepatitis C Virus Antibody Negative (Negative)
--- NOTE | 2024-08-06 12:33 | P.CONGI_ITS ---
Assessment and Plan Assessment and plan (1) Liver mass: Code(s): R16.0 - Hepatomegaly, not elsewhere classified Status: Acute Assessment and Plan: In the context of alcoholic cirrhosis, the liver mass is highly suggestive of hepatocellular carcinoma. However, the CT scan findings are inconclusive due to the lack of dynamic contrast. An MRI with contrast will be ordered to better characterize the lesion. The presence of rapid contrast enhancement followed by washout in the portal venous phase on MRI makes the diagnosis of hepatocellular carcinoma with no need for biopsy. An alpha-fetoprotein level will also be obtained. Unfortunately, the patient's prognosis is poor. Given the advanced stage of the disease and the unsuitability of surgical or palliative local therapies, comfort care is recommended. (2) Elevated bilirubin: Code(s): R17 - Unspecified jaundice Status: Acute GI Consult Note Consult date/time: 08/06/24 12:33 Reason for consult: severe jaundice HPI: Toro Zeng is a 74 year old male with a history of alcoholic cirrhosis who lives in a [facility]. He was noticed to be progressively and severely jaundiced which prompted his referral to the emergency department. On arrival he was noticed to be profoundly jaundiced was found to have a large mass in the left lobe of the liver, suspicious for malignancy. He is admitted for observation and defining the etiology of the mass. Review of Systems 2 Review of Systems: All systems reviewed & are unremarkable except as noted in HPI and below PMFSH Past Medical History Medical History Hx pulmonary embolism CTA RLL PE 08/20/19 Alcoholism Anxiety Depression Nose fracture GERD (gastroesophageal reflux disease) EGD normal 08/24/19 Esophageal varices Hypertension Hypercholesteremia Deviated septum Surgical History Surgical History History of total left hip arthroplasty H/O hernia repair x2 History of appendectomy Family History Family History Father Alcoholism Congestive heart failure Mother Cancer Grandparent Diabetes mellitus Social History Social History Social History: Patient lives alone. He resides at [facility]. He is . No children. Alcohol use as mentioned above. He has a history of marijuana, heroin and amphetamine use but no history of IV drug use. He smoked tobacco sporadically but quit in his 30s. He is a [employer] . He did receive his degree after the service in social studies. 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 He is a DNR. He lists his ex- to be the individual to make decisions for him if he is unable. Smoking status: Former smoker Tobacco type: cigarettes Second hand tobacco smoke exposure: No Alcohol intake: former Drinks per week: 30 Alcohol use details: 1/5 VODKA DAILY Substance use: never Substance use type: does not use Other substance usage details: drinks 1/5 vodka daily Last use: years ago Do You Feel Safe in your Home?: Yes Lack of Transportation: No Lack of Food: Never True Current Housing: I Have Housing Concerned About Future Housing: No Difficulty Paying Gas/Electric Bills: No Difficulty Paying for Meds: No Currently Unemployed: No Education: Master's Degree or Higher Difficulty w/ Childcare or Family Care: No Living arrangements: [facility] Gender identity (if verbalized by the patient): Male Spiritual care concerns: No Agree to blood products: Yes Meds Home Medications and Allergies Home Medications ?Medication ?Instructions ?Recorded ?Confirmed ?Type famotidine 20 mg tablet 20 mg PO BID 06/27/21 08/06/24 History fenofibrate nanocrystallized 145 145 mg PO DAILY 06/27/21 08/06/24 History mg tablet (Tricor) furosemide 20 mg tablet 20 mg PO DAILY 06/27/21 08/06/24 History multivitamin,tx-minerals 1 tablet PO DAILY 06/27/21 08/06/24 History thiamine HCl (vitamin B1) 100 mg 100 mg PO DAILY 06/27/21 08/06/24 History tablet trazodone 100 mg tablet 100 mg PO HS 06/27/21 08/06/24 History acetaminophen 325 mg tablet 650 mg PO Q6H PRN Pain 05/04/24 08/06/24 History apixaban 5 mg tablet (Eliquis) 5 mg PO BID 05/04/24 08/06/24 History buspirone 5 mg tablet 5 mg PO BID 05/04/24 08/06/24 History calcium carbonate (Tums) 200 mg PO Q6H PRN Heartburn 05/04/24 08/06/24 History diphenhydramine HCl 25 mg tablet 25 mg PO BID PRN Itching 05/04/24 08/06/24 History (Benadryl Allergy) fluoxetine 20 mg tablet 20 mg PO DAILY 05/04/24 08/06/24 History loperamide 2 mg capsule 2 mg PO Q6H PRN LOOSE STOOLS 05/04/24 08/06/24 History mirabegron 25 mg tablet,extended 50 mg PO HS 05/04/24 08/06/24 History release 24 hr (Myrbetriq) triamcinolone acetonide 0.1 % 1 applic topical BID PRN SCRATCHING 05/04/24 08/06/24 History topical cream multivitamin with folic acid 400 1 tablet PO DAILY 08/06/24 08/06/24 History mcg tablet (Therems Multivitamin) tamsulosin 0.4 mg capsule 0.4 mg PO DAILY 08/06/24 08/06/24 History Allergies Allergy/AdvReac Type Severity Reaction Status Date / Time lisinopril Allergy Unknown Verified 08/01/24 16:18 Vital Signs Vital Signs - 24 hr 08/05/24 12:55 08/05/24 20:07 08/05/24 21:45 Temperature 97.9 F 97.4 F L Pulse Rate 97 90 89 Respiratory Rate 16 20 14 Blood Pressure 113/75 136/81 129/68 Pulse Oximetry 97 98 98 Oxygen Delivery Room Air 08/06/24 00:01 08/06/24 00:40 08/06/24 06:00 Temperature 97.6 F 96.9 F L Pulse Rate 90 77 Respiratory Rate 20 16 Blood Pressure 151/72 H 138/83 Pulse Oximetry 97 98 Oxygen Delivery Room Air 08/06/24 09:30 Temperature Pulse Rate Respiratory Rate Blood Pressure Pulse Oximetry Oxygen Delivery Room Air Exam 2 Narrative: markedly jaundice, oriented x3. Abdomen: Palpable firm left lobe of the liver, nontender. The rest of the exam within normal limits. Results Labs 08/06/24 08:30 08/06/24 08:30 Labs: Short CBC 08/05/24 08/06/24 Range/Units 16:44 08:30 WBC 9.0 9.2 (4.5-10.0) K/mm3 Hgb 15.0 14.0 (14.0-18.0) g/dL Hct 44.6 42.3 (42.0-52.0) % Plt Count 235 224 (150-375) k/mm3 BMP 08/05/24 08/06/24 16:44 08:30 Sodium 136 L 135 L Potassium 3.8 4.2 Chloride 103 103 Carbon Dioxide 26 24 BUN 10 10 Creatinine 0.56 L 0.44 L Glucose 120 H 107 Calcium 9.7 9.2 Liver Function 08/05/24 08/06/24 Range/Units 16:44 08:30 Total Bilirubin 14.9 H 14.3 H (0.2-1.3) mg/dL AST 75 H 76 H (17-59) U/L ALT 20 18 (6-50) U/L Alkaline Phosphatase 262 H 229 H (38-126) U/L Albumin 3.2 L 2.7 L (3.5-5.1) g/dL Urine 08/05/24 Range/Units 20:09 Urine Color Dark yellow (Yellow) Urine Appearance Turbid H (Clear) Urine pH 5.5 (5.0-9.0) Ur Specific [place] 1.023 (1.001-1.035) Urine Protein 1+ H (Negative) mg/dL Urine Glucose (UA) Negative (Negative) mg/dL
[2024-08-06 13:18] VITALS: O2SAT 96
[2024-08-06 14:00] VITALS: BP 126/81; PULSE 92; RESP 14; TEMP 36.2; O2SAT 96
--- NOTE | 2024-08-06 17:48 | P.PNIM_ITS ---
Progress Note: A&P Assessment and Plan (1) Liver mass: Code(s): R16.0 - Hepatomegaly, not elsewhere classified Status: Acute Assessment and Plan: Placed in observation GI consult (2) Elevated bilirubin: Code(s): R17 - Unspecified jaundice Status: Acute Assessment and Plan: Likely secondary to hepatocellular damage (3) Elevated alkaline phosphatase level: Code(s): R74.8 - Abnormal levels of other serum enzymes Status: Acute Assessment and Plan: Patient found to have mass (4) GERD (gastroesophageal reflux disease): Qualifiers: Esophagitis presence: esophagitis presence not specified Qualified Code(s): K21.9 - Gastro-esophageal reflux disease without esophagitis Code(s): K21.9 - Gastro-esophageal reflux disease without esophagitis Status: Chronic Assessment and Plan: PPI (5) Alcohol dependence: Code(s): F10.20 - Alcohol dependence, uncomplicated Status: Acute Assessment and Plan: Patient has been sober for over a year Plan Liver mass -CT abdomen/pelvis 1. 10.4 cm liver mass, consistent with malignancy such as hepatocellular carcinoma or cholangiocarcinoma. Ultrasound-guided core needle biopsy is recommended. 2. 15 mm liver mass suspicious for metastatic disease. 3. Periportal lymphadenopathy, consistent with metastatic disease. -underwent MRI with contrast -alpha fetoprotein pending -chronic alcoholism -history of prostate cancer -Oncology consulted Subjective Date/time seen: 08/06/24 17:48 Interval history: Patient was evaluated along with his ex- who is the POA. Patient lives in a senior living. Patient is a chronic alcoholic. Patient was diagnosed with prostate cancer in May 2024 and advised to monitor PSA every 6 months. He has follows with the Urology . Lately in the senior living patient was diagnosed with a jaundice which has gotten worse. Patient had abdomen/pelvic CT which shows: 1. 10.4 cm liver mass, consistent with malignancy such as hepatocellular carcinoma or cholangiocarcinoma. Ultrasound-guided core needle biopsy is recommended. 2. 15 mm liver mass suspicious for metastatic disease. 3. Periportal lymphadenopathy, consistent with metastatic disease. Patient underwent MRI. Discussed the goals of care. Oncology consulted and appreciate recommendations. Patient wants to stay DNR. Review of Systems Review of Systems: Jaundice Exam Narrative: Patient is sitting in a stretcher Const: General: cooperative, comfortable, no acute distress, well developed, alert, awake, ill appearing chronically and obese Nutritional Appearance: obese Orientation/consciousness: patient oriented x3 Other: Jaundiced HENMT: Head: normal to inspection, normocephalic and atraumatic Ears: he aring grossly normal bilaterally Face/Nose/Sinus: normal facial exam Face and sinus: normal facial exam Eyes: General: appearance normal, both eyes and all related structures Pupils: Equal, round and reactive pupils present EOM: EOMs intact bilaterally Other: Icterus Neck: Neck: full ROM, no lymphadenopathy and no JVD Thyroid: thyroid normal Lymphatic: no lymphadenopathy noted Resp: Effort & Inspection: normal respiratory effort and able to speak in complete sentences Auscultation: clear to auscultation bilaterally Cardio: Jugular venous distension: no JVD Rate: regular rate Rhythm: regular rhythm Heart sounds: S1 normal heart sound present and S2 normal heart sound present GI: Inspection: Pannus present, obesity, no visible herniation, No visible peristalsis and No caput medusae present : General: Yes deferred Skin: Rashes: no rashes Wounds: no wounds Neuro: General: patient oriented x3 and CN's II-XI intact bilaterally Cranial nerves: Yes CN's II-XII intact bilaterally and Yes Equal, round and reactive pupils present Cognition (Neuro): normal cognition Speech: normal speech Gait exam (Neuro): Normal gait present Motor exam (neuro): 5/5 motor strength present throughout Extrem: General: normal to inspection, full ROM, no joint enlargement and no pedal edema Objective Data Vital Signs Vital Signs: Vital Signs - 24 hr 08/05/24 20:07 08/05/24 21:45 08/06/24 00:01 Temperature 97.4 F L 97.6 F Pulse Rate 90 89 90 Respiratory Rate 20 14 20 Blood Pressure 136/81 129/68 151/72 H Pulse Oximetry 98 98 97 Oxygen Delivery 08/06/24 00:40 08/06/24 06:00 08/06/24 09:30 Temperature 96.9 F L Pulse Rate 77 Respiratory Rate 16 Blood Pressure 138/83 Pulse Oximetry 98 Oxygen Delivery Room Air Room Air 08/06/24 13:18 08/06/24 14:00 Temperature 97.2 F L Pulse Rate 92 Respiratory Rate 14 Blood Pressure 126/81 Pulse Oximetry 96 96 Oxygen Delivery Room Air Intake/Output Intake/Output: Intake & Output 0108/04/24 08/05/24 08/06/24 23:59 23:59 23:59 23:59 Intake Total 858 Output Total 300 Balance 558 Meds/Results Medications: Active Medications Generic Name Dose Route Start Last Admin Trade Name Freq PRN Reason Stop Dose Admin Buspirone HCl 5 mg 08/06/24 09:00 08/06/24 17:25 Buspirone Hcl 5 Mg Tablet PO 5 mg BID ALBINO Administration Calcium Carbonate 200 mg 08/06/24 02:25 Calcium Carbonate (Tums) 500 Mg (200 Mg Elemental) PO Q6H PRN Heartburn Famotidine 20 mg 08/06/24 09:00 08/06/24 09:27 Famotidine 20 Mg Tablet PO 20 mg Q12HR ALBINO Administration Fenofibrate 145 mg 08/06/24 09:00 08/06/24 09:27 Fenofibrate Nanocrystallized 145 Mg Tablet PO 145 mg DAILY ALBINO Administration Fluoxetine HCl 20 mg 08/06/24 09:00 08/06/24 09:27 Fluoxetine Hcl 20 Mg Capsule PO 20 mg DAILY [facility] Administration Melatonin 5 mg 08/06/24 21:00 Melatonin 5 Mg Tablet PO HS [facility] Mirabegron 50 mg 08/06/24 21:00 Mirabegron 25 Mg Er Tablet PO HS [facility] Miscellaneous Information 0 each 08/06/24 00:01 Triamcinolone Add Site Of Use XX 09/05/24 00:00 CLARIFY [facility] Tamsulosin HCl 0.4 mg 08/06/24 09:00 08/06/24 09:27 Tamsulosin Hcl 0.4 Mg Capsule PO 0.4 mg DAILY [facility] Administration Thiamine HCl 100 mg 08/06/24 09:00 08/06/24 09:27 Thiamine Hcl 100 Mg Tablet PO 100 mg DAILY [facility] Administration Trazodone HCl 100 mg 08/06/24 21:00 Trazodone Hcl 50 Mg Tablet PO HS [facility] Triamcinolone Acetonide 1 applic 08/06/24 02:25 Triamcinolone Acet 0.1% Cream 15 Gm Tube TOPICAL BID PRN SCRATCHING Radiology Results: ITS Impressions Upper Quadrant Ultrasound 08/05/24 16:07 IMPRESSION: 1. Cholelithiasis without biliary ductal dilation or findings of acute cholecystitis. Abdomen/Pelvis CT 08/05/24 21:03 IMPRESSION: 1. 10.4 cm liver mass, consistent with malignancy such as hepatocellular carcinoma or cholangiocarcinoma. Ultrasound-guided core needle biopsy is recommended. 2. 15 mm liver mass suspicious for metastatic disease. 3. Periportal lymphadenopathy, consistent with metastatic disease. Labs Labs: Laboratory Results - last 24 hr 08/05/24 08/05/24 08/06/24 20:09 22:49 08:30 WBC 9.2 RBC 4.42 L Hgb 14.0 Hct 42.3 MCV 95.7 MCH 31.7 MCHC 33.1 RDW 18.7 H Plt Count 224 MPV 11.4 H Immature Gran % (Auto) 1.0 H Neut % (Auto) 68.2 Lymph % (Auto) 15.7 L [place] % (Auto) 13.3 H Eos % (Auto) 1.1 Baso % (Auto) 0.7 Lymph # (Auto) 1.44 [place] # (Auto) 1.2 H Eos # (Auto) 0.1 Baso # (Auto) 0.1 Abs Immat Gran (auto) 0.09 H Absolute Neuts (auto) 6.3 Absolute Nucleated RBC 0.000 Nucleated RBC % 0.0 Sodium 135 L Potassium 4.2 Chloride 103 Carbon Dioxide 24 Anion Gap 8 BUN 10 Creatinine 0.44 L Estim Creat Clear Calc 146 Estimated GFR > 60 Glucose 107 Calcium 9.2 Total Bilirubin 14.3 H AST 76 H ALT 18 Alkaline Phosphatase 229 H Ammonia 23 Lactate Dehydrogenase Total Protein 7.0 Albumin 2.7 L Urine Color Dark yellow Urine Appearance Turbid H Urine pH 5.5 Ur Specific [place] 1.023 Urine Protein 1+ H Urine Glucose (UA) Negative Urine Ketones Negative Ur Blood (Man) 3+ H Urine Nitrate Positive H Urine Bilirubin 3+ H Urine Urobilinogen 0.2 Add Ur Microanalysis Reviewed Leukocyte Esterase Rfl 1+ H Urine RBC 11-20 H Urine WBC 0-5 Ur Squamous Epith Cells None seen Urine Bacteria Rare Urine Casts 0-2 Urine Mucus Present Hepatitis A IgM Ab Hep Bs Antigen Hep B Core IgM Ab Hepatitis C Ab Screen Influenza A (RT-PCR) Negative Influenza B (RT-PCR) Negative RSV (RT-PCR) Negative SARS-CoV-2 RNA (RT-PCR) Negative 08/06/24 10:43 WBC RBC Hgb Hct MCV MCH MCHC RDW Plt Count MPV Immature Gran % (Auto) Neut % (Auto) Lymph % (Auto) [place] % (Auto) Eos % (Auto) Baso % (Auto) Lymph # (Auto) [place] # (Auto) Eos # (Auto) Baso # (Auto) Abs Immat Gran (auto) Absolute Neuts (auto) Absolute Nucleated RBC Nucleated RBC % Sodium Potassium Chloride Carbon Dioxide Anion Gap BUN Creatinine Estim Creat Clear Calc Estimated GFR Glucose Calcium Total Bilirubin AST ALT Alkaline Phosphatase Ammonia Lactate Dehydrogenase 198 Total Protein Albumin Urine Color Urine Appearance Urine pH Ur Specific [place] Urine Protein Urine Glucose (UA) Urine Ketones Ur Blood (Man) Urine Nitrate Urine Bilirubin Urine Urobilinogen Add Ur Microanalysis Leukocyte Esterase Rfl Urine RBC Urine WBC Ur Squamous Epith Cells Urine Bacteria Urine Casts Urine Mucus Hepatitis A IgM Ab Negative Hep Bs Antigen Negative Hep B Core IgM Ab Negative Hepatitis C Ab Screen Negative Influenza A (RT-PCR) Influenza B (RT-PCR) RSV (RT-PCR) SARS-CoV-2 RNA (RT-PCR) Hospitalist MIPS Advance Care Plan I have confirmed that the patient's Advanced Care Plan is present, code status is documented, or surrogate decision maker is listed in patient medical record.: Yes Medication Reconciliation I have utilized all available resources to obtain, update and review the patients current medications (includes all prescriptions, OTC, herbals, cannabis, and nutritional supplements).: Yes
[2024-08-06] MEDS: MIRABEGRON 25 MG ER TABLET 50 MG PO (20:40)
[2024-08-06] MEDS: traZODone HCL 50 MG TABLET 100 MG PO (20:43)
[2024-08-06] MEDS: MELATONIN 5 MG TABLET PO (20:43)
[2024-08-06 21:15] VITALS: BP 139/75; PULSE 92; RESP 18; TEMP 36.4; O2SAT 98
[2024-08-07 05:04] VITALS: BP 131/84; PULSE 77; RESP 20; TEMP 36.3; O2SAT 98
[2024-08-07 07:13] LABS: Hematocrit 42.3 % (42.0-52.0); Hemoglobin 14.1 g/dL (14.0-18.0); Mean Corpuscular HGB Conc 33.3 g/dl (32-36); Mean Corpuscular Volume 96.1 fl (80-100); Mean Platelet Volume 10.8 fl (7.4-10.4); Platelet Count Result 203 k/mm3 (150-375); Red Cell Distribution Width 18.3 % (11.5-14.5); White Blood Count 7.6 K/mm3 (4.5-10.0)
[2024-08-07 08:25] LABS: Alanine Aminotransferase 17 U/L (6-50); Albumin Level 2.4 g/dL (3.5-5.1); Alkaline Phosphatase 243 U/L (38-126); Anion Gap 5 mmol/L (4-12); Aspartate Amino Transferase 75 U/L (17-59); Bilirubin,Total 12.9 mg/dL (0.2-1.3); Blood Urea Nitrogen 9 mg/dL (9-20); Calcium 8.8 mg/dL (8.4-10.2); Carbon Dioxide 27 mmol/L (22-30); Chloride 105 mmol/L (98-107); Estimated CRCL calculation 135 ml/min; Estimated Glomerular Filt Rate > 60; Glucose 100 mg/dL (65-110); Sodium 137 mmol/L (137-145)
[2024-08-07] MEDS: FLUoxetine HCL 20 MG CAPSULE PO (09:18)
[2024-08-07] MEDS: busPIRone HCL 5 MG TABLET PO (09:18)
[2024-08-07] MEDS: THIAMINE HCL 100 MG TABLET PO (09:18)
[2024-08-07] MEDS: FAMOTIDINE 20 MG TABLET PO (09:18)
[2024-08-07] MEDS: FENOFIBRATE NANOCRYSTALLIZED 145 MG TABLET PO (09:18)
[2024-08-07] MEDS: TAMSULOSIN HCL 0.4 MG CAPSULE PO (09:18)
[2024-08-07 09:26] VITALS: O2SAT 96
--- NOTE | 2024-08-07 13:08 | WPDGIPROGNO ---
Progress Note: A&P Assessment and Plan (1) Liver mass: Code(s): R16.0 - Hepatomegaly, not elsewhere classified Status: Acute Assessment and Plan: Yesterday's MRI revealed a large mass occupying a significant portion of the left lobe of the liver. The imaging findings strongly suggest a malignant process, most likely hepatocellular carcinoma, by far the most common malignancy in patients with decompensated cirrhosis. Given the highly suggestive imaging findings and the absence of curative treatment options at this stage, a liver biopsy is not indicated. The patient understands the prognosis and has opted for comfort care measures. He will be discharged back to his [facility]. I will continue to follow the patient's care as an outpatient in the clinic. (2) Liver cirrhosis, alcoholic: Code(s): K70.30 - Alcoholic cirrhosis of liver without ascites Status: Acute Time Spent With Patient Time with patient: less than 15 minutes Subjective Date/time seen: 08/07/24 13:08 Interval history: No changes in his current status. Patient denies abdominal pain. Exam Narrative: Markedly jaundice, alert and oriented. Otherwise unchanged Objective Data Vital Signs Vital Signs: Vital Signs - 24 hr 08/06/24 13:18 08/06/24 14:00 08/06/24 20:40 Temperature 97.2 F L Pulse Rate 92 Respiratory Rate 14 Blood Pressure 126/81 Pulse Oximetry 96 96 Oxygen Delivery Room Air Room Air 08/06/24 21:15 08/07/24 05:04 08/07/24 09:26 Temperature 97.5 F L 97.3 F L Pulse Rate 92 77 Respiratory Rate 18 20 Blood Pressure 139/75 131/84 Pulse Oximetry 98 98 96 Oxygen Delivery Room Air 08/07/24 11:57 Temperature Pulse Rate Respiratory Rate Blood Pressure Pulse Oximetry Oxygen Delivery Room Air Intake/Output Intake/Output: Intake & Output 08/04/24 08/05/24 08/06/24 08/07/24 23:59 23:59 23:59 23:59 Intake Total 1888 837 Output Total 300 1100 Balance 1588 -263 Meds/Results Medications: Active Medications Generic Name Dose Route Start Last Admin Trade Name Freq PRN Reason Stop Dose Admin Buspirone HCl 5 mg 08/06/24 09:00 08/07/24 09:18 Buspirone Hcl 5 Mg Tablet PO 5 mg BID ALBINO Administration Calcium Carbonate 200 mg 08/06/24 02:25 Calcium Carbonate (Tums) 500 Mg (200 Mg Elemental) PO Q6H PRN Heartburn Famotidine 20 mg 08/06/24 09:00 08/07/24 09:18 Famotidine 20 Mg Tablet PO 20 mg Q12HR ALBINO Administration Fenofibrate 145 mg 08/06/24 09:00 08/07/24 09:18 Fenofibrate Nanocrystallized 145 Mg Tablet PO 145 mg DAILY [facility]BINO Administration Fluoxetine HCl 20 mg 08/06/24 09:00 08/07/24 09:18 Fluoxetine Hcl 20 Mg Capsule PO 20 mg DAILY AL[facility] Administration Melatonin 5 mg 08/06/24 21:00 08/06/24 20:43 Melatonin 5 Mg Tablet PO 5 mg HS ALBINO Administration Mirabegron 50 mg 08/06/24 21:00 08/06/24 20:40 Mirabegron 25 Mg Er Tablet PO 50 mg HS ALBINO Administration Miscellaneous Information 0 each 08/06/24 00:01 Triamcinolone Add Site Of Use XX 09/05/24 00:00 CLARIFY ALBINO Perflutren Lipid Microsphere 0 ml 08/07/24 10:45 Perflutren Lipid Microspheres 1.5 Ml Vial Diluted To 10 Ml Total Volume IV PUSH 08/10/24 10:46 ONCE PRN adequate visualization Protocol Tamsulosin HCl 0.4 mg 08/06/24 09:00 08/07/24 09:18 Tamsulosin Hcl 0.4 Mg Capsule PO 0.4 mg DAILY ALBINO Administration Thiamine HCl 100 mg 08/06/24 09:00 08/07/24 09:18 Thiamine Hcl 100 Mg Tablet PO 100 mg DAILY ALBINO Administration Trazodone HCl 100 mg 08/06/24 21:00 08/06/24 20:43 Trazodone Hcl 50 Mg Tablet PO 100 mg HS ALBINO Administration Triamcinolone Acetonide 1 applic 08/06/24 02:25 Triamcinolone Acet 0.1% Cream 15 Gm Tube TOPICAL BID PRN SCRATCHING Radiology Results: ITS Impressions Upper Quadrant Ultrasound 08/05/24 16:07 IMPRESSION: 1. Cholelithiasis without biliary ductal dilation or findings of acute cholecystitis. Abdomen/Pelvis CT 08/05/24 21:03 IMPRESSION: 1. 10.4 cm liver mass, consistent with malignancy such as hepatocellular carcinoma or cholangiocarcinoma. Ultrasound-guided core needle biopsy is recommended. 2. 15 mm liver mass suspicious for metastatic disease. 3. Periportal lymphadenopathy, consistent with metastatic disease. Abdomen MRI 08/07/24 07:11 IMPRESSION: 1. 12 cm mass occupying a large portion of the left hepatic lobe consistent with malignancy such as hepatocellular carcinoma or cholangiocarcinoma. Would recommend ultrasound-guided liver biopsy. 2. 1.5 cm enhancing nodule in the right hepatic lobe along the mildly enlarged periportal and portacaval and right epiphrenic lymph nodes and enhancing lesions in the T10 and L5 vertebral bodies consistent with metastatic disease. 3. 1.4 x 1.0 cm subpleural and left paravertebral nodule near the T9-T10 neural foramen and would favor a schwannoma/neurofibroma over additional metastatic lymph node. Labs Labs: Laboratory Results - last 24 hr 08/07/24 06:51 WBC 7.6 RBC 4.40 L Hgb 14.1 Hct 42.3 MCV 96.1 MCH 32.0 MCHC 33.3 RDW 18.3 H Plt Count 203 MPV 10.8 H Sodium 137 Potassium 4.0 Chloride 105 Carbon Dioxide 27 Anion Gap 5 BUN 9 Creatinine 0.48 L Estim Creat Clear Calc 135 Estimated GFR > 60 Glucose 100 Calcium 8.8 Total Bilirubin 12.9 H AST 75 H ALT 17 Alkaline Phosphatase 243 H Total Protein 6.0 L Albumin 2.4 L
--- NOTE | 2024-08-07 13:45 | P.DS_ITS ---
DS: Admitting Diagnosis Discharge Date 08/07/2024 Admitting Diagnosis Jaundice DS: Discharge Diagnosis Discharge Diagnosis (1) Liver mass: Code(s): R16.0 - Hepatomegaly, not elsewhere classified Status: Acute Assessment and Plan: Placed in observation GI consult (2) Elevated bilirubin: Code(s): R17 - Unspecified jaundice Status: Acute Assessment and Plan: Likely secondary to hepatocellular damage (3) Elevated alkaline phosphatase level: Code(s): R74.8 - Abnormal levels of other serum enzymes Status: Acute Assessment and Plan: Patient found to have mass (4) GERD (gastroesophageal reflux disease): Qualifiers: Esophagitis presence: esophagitis presence not specified Qualified Code(s): K21.9 - Gastro-esophageal reflux disease without esophagitis Code(s): K21.9 - Gastro-esophageal reflux disease without esophagitis Status: Chronic Assessment and Plan: PPI (5) Alcohol dependence: Code(s): F10.20 - Alcohol dependence, uncomplicated Status: Acute Assessment and Plan: Patient has been sober for over a year Plan Liver mass -CT abdomen/pelvis 1. 10.4 cm liver mass, consistent with malignancy such as hepatocellular carcinoma or cholangiocarcinoma. Ultrasound-guided core needle biopsy is recommended. 2. 15 mm liver mass suspicious for metastatic disease. 3. Periportal lymphadenopathy, consistent with metastatic disease. MRI abdomen: 1. 12 cm mass occupying a large portion of the left hepatic lobe consistent with malignancy such as hepatocellular carcinoma or cholangiocar cinoma. Would recommend ultrasound-guided liver biopsy. 2. 1.5 cm enhancing nodule in the right hepatic lobe along the mildly enlarged periportal and portacaval and right epiphrenic lymph nodes and enhancing lesions in the T10 and L5 vertebral bodies consistent with metastatic disease. 3. 1.4 x 1.0 cm subpleural and left paravertebral nodule near the T9-T10 neural foramen and would favor a schwannoma/neurofibroma over additional metastatic lymph node. -alpha fetoprotein pending -chronic alcoholism -history of prostate cancer -Oncology as OP -Needs palliative/hospice care DS: Summary Hospital Course Hospital Course: 74-year-old male with past medical history significant for alcohol dependence, patient has been sober now for over a year, hepatic cirrhosis, esophageal varices, gastroesophageal reflux disease, depression. Patient presents to the emergency room due to jaundice, denies melena, coffee-ground emesis, hematemesis, bright red blood per rectum, has been his usual state of health. Preliminary workup was significant for CT of abdomen and pelvis with liver mass. A total bilirubin was 14. Patient denies any nausea, vomiting, diarrhea, fevers, chills. Patient has been admitted for further evaluation management and treatment. Patient was evaluated along with his ex- who is the POA. Patient lives in a skilled nursing. Patient is a chronic alcoholic. Patient was diagnosed with prostate cancer in May 2024 and advised to monitor PSA every 6 months. He has follows with the Urology . Lately in the skilled nursing patient was diagnosed with a jaundice which has gotten worse.Patient under MRI which is consistent with HCC. I ordered US guided bipsy of liver but GI reported given the highly suggestive imaging findings and the absence of curative treatment options at this stage, a liver biopsy is not indicated,the patient understands the prognosis and has opted for comfort care measures. I confirmed with his POA. I advised to follow up with GI and Oncology as OP.He will be discharged back to his skilled nursing. Status at Discharge Cognitive/behavioral status at discharge: stable Time Spent with Patient Time attestation: Total time spent providing and/or coordinating discharge services: 45 minutes Exam Narrative: Patient is sitting in a stretcher Const: General: cooperative, comfortable, no acute distress, well developed, alert, awake, ill appearing chronically and obese Nutritional Appearance: obese Orientation/consciousness: patient oriented x3 Other: Jaundiced HENMT: Head: normal to inspection, normocephalic and atraumatic Ears: hearing grossly normal bilaterally Face/Nose/Sinus: normal facial exam Face and sinus: normal facial exam Eyes: General: appearance normal, both eyes and all related structures Pupils: Equal, round and reactive pupils present EOM: EOMs intact bilaterally Other: Icterus Neck: Neck: full ROM, no lymphadenopathy and no JVD Thyroid: thyroid normal Lymphatic: no lymphadenopathy noted Resp: Effort & Inspection: normal respiratory effort and able to speak in complete sentences Auscultation: clear to auscultation bilaterally Cardio: Jugular venous distension: no JVD Rate: regular rate Rhythm: regular rhythm Heart sounds: S1 normal heart sound present and S2 normal heart sound present GI: Inspection: Pannus present, obesity, no visible herniation, No visible peristalsis and No caput medusae present : General: Yes deferred Skin: Rashes: no rashes Wounds: no wounds Neuro: General: patient oriented x3 and CN's II-XI intact bilaterally Cranial nerves: Yes CN's II-XII intact bilaterally and Yes Equal, round and reactive pupils present Cognition (Neuro): normal cognition Speech: normal speech Gait exam (Neuro): Normal gait present Motor exam (neuro): 5/5 motor strength present throughout Extrem: General: normal to inspection, full ROM, no joint enlargement and no pedal edema DS: Data Data Completed and Pending Labs on day of discharge: Labs from last 24 hours 08/07/24 06:51 WBC 7.6 RBC 4.40 L Hgb 14.1 Hct 42.3 MCV 96.1 MCH 32.0 MCHC 33.3 RDW 18.3 H Plt Count 203 MPV 10.8 H Sodium 137 Potassium 4.0 Chloride 105 Carbon Dioxide 27 Anion Gap 5 BUN 9 Creatinine 0.48 L Estim Creat Clear Calc 135 Estimated GFR > 60 Glucose 100 Calcium 8.8 Total Bilirubin 12.9 H AST 75 H ALT 17 Alkaline Phosphatase 243 H Total Protein 6.0 L Albumin 2.4 L Discharge Plan Discharge Attending physician on discharge: Alton Camara Consulting providers: Jacob Monaco Discharging Clinician: Alton Camara Anticipated Discharge Date/Time: 08/07/24 13:51 Patient Disposition: NH Shelter/Asst Living Activity: as tolerated Diet: low sodium Discharge Instructions: Please follow up with Gastroenterology, Oncology and PCP within a week upon discharge. Patient needs Palliative/Hospice evaluation as OP. Please return to ED for any concerns like severe abdominal pain or fever or severe vomiting Patient Instructions: Antibiotic Form, Apixaban (By mouth), Blood Thinners (GEN) Patient Language: Nepalese Stand Alone Forms: General Discharge Information Discharge Medications: Continued thiamine HCl (vitamin B1) 100 mg Tablet 100 mg PO DAILY famotidine 20 mg tablet 20 mg PO BID trazodone 100 mg tablet 100 mg PO HS furosemide 20 mg tablet 20 mg PO DAILY multivitamin,tx-minerals Tablet 1 tablet PO DAILY fenofibrate nanocrystallized [Tricor] 145 mg Tablet 145 mg PO DAILY acetaminophen 325 mg Tablet 650 mg PO Q6H PRN (Reason: Pain) diphenhydramine HCl [Benadryl Allergy] 25 mg Tablet 25 mg PO BID PRN (Reason: Itching) buspirone 5 mg tablet 5 mg PO BID Eliquis 5 mg tablet 5 mg PO BID fluoxetine 20 mg tablet 20 mg PO DAILY mirabegron [Myrbetriq] 25 mg tablet extended release 24 hr 50 mg PO HS loperamide 2 mg capsule 2 mg PO Q6H PRN (Reason: LOOSE STOOLS) triamcinolone acetonide 0.1 % Cream 1 applic TOPICAL BID PRN (Reason: SCRATCHING) calcium carbonate [Tums] 200 mg calcium (500 mg) Tablet,Chewable 200 mg PO Q6H PRN (Reason: Heartburn) tamsulosin 0.4 mg capsule 0.4 mg PO DAILY multivitamin with folic acid [[facility] Multivitamin] 400 mcg tablet 1 tablet PO DAILY Date of admission: 08/06/24 17:04 Primary Care Provider: Cong Powell Admitting Provider: Amy Myers V. Attending physician on admission: Amy Myers V. Condition: Serious
[2024-08-07 14:00] VITALS: BP 133/43; PULSE 68; RESP 18; TEMP 36; O2SAT 95
[2024-08-07 14:56] LABS: SARS-CoV-2 RNA PCR Negative (Negative)
[2024-08-09 00:59] LABS: GGT 147 U/L (3-70)
[2024-08-09 03:28] LABS: Haptoglobin 39 mg/dL (43-212)
[2024-08-09 11:08] LABS: Alpha Fetoprotein Tumor Marker 8.6 ng/mL (<6.1)
== END 2024-08-07 15:21 | DRG 433 ==
LOC: ANHED 20:02 → ANH3MEDSUR 23:42
PROVIDERS: Physician Assistant; Admitting Provider Internal Medicine; Emergency Provider Emergency Medicine; PCP Family Medicine; Visit Provider General Practice
DX: K70.30 Alcoholic cirrhosis of liver without ascites (principal); I85.10 Secondary esophageal varices without bleeding; R16.0 Hepatomegaly, not elsewhere classified; K21.9 Gastro-esophageal reflux disease without esophagitis; F10.20 Alcohol dependence, uncomplicated; F32.A Depression, unspecified; Z86.711 Personal history of pulmonary embolism; F41.9 Anxiety disorder, unspecified; Z96.642 Presence of left artificial hip joint; Z90.49 Acquired absence of other specified parts of digestive tract; Z66 Do not resuscitate; Z87.891 Personal history of nicotine dependence; Z85.46 Personal history of malignant neoplasm of prostate; Z20.822 Contact with and (suspected) exposure to COVID-19
CPT/HCPCS: 36415; 74177; 74183; 76705; 80053; 80074; 81001; 82105; 82140; 82977; 83010; 83615; 83690; 85025; 85027; 85610; 85730; 87086; 87635; 87637; 97165; 97535; 99285; A9270; A9577; G0378; Q9967